=== PATIENT | male | born 1955 | race African-American/Black ===

== ENCOUNTER 2017-03-29 15:23 | Inpatient (IN) | payer OTHER ==
[2017-03-29 16:04] VITALS: BMI 21.0
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
[2017-03-29] MEDS ORDERED: MAG HYDROX/AL HYDROX/SIMETH 30 ML UNIT-DOSE CUP PO PRN (17:34)
[2017-03-29] MEDS ORDERED: LOPERAMIDE HCL 2 MG CAPSULE PO PRN (17:34)
[2017-03-29] MEDS ORDERED: MAGNESIUM HYDROX 2400MG/30ML ORAL SUSPENSION 30 ML CUP PO PRN (17:34)
[2017-03-29] MEDS ORDERED: chlordiazePOXIDE HCL 25 MG CAPSULE PO PRN (17:34)
[2017-03-29] MEDS ORDERED: MAGNESIUM CITRATE 300 ML BOTTLE PO PRN (17:34)
[2017-03-29] MEDS ORDERED: P-EPHED 60MG/TRIPROLIDI 2.5MG TABLET PO PRN (17:34)
[2017-03-29] MEDS ORDERED: guaiFENesin/D-METHORPHAN HB 10 ML UNIT-DOSE CUPS PO PRN (17:34)
[2017-03-29] MEDS ORDERED: MENTHOL/PHENOL 1 EACH UD MM PRN (17:34)
[2017-03-29] MEDS ORDERED: hydrOXYzine PAMOATE 50 MG CAPSULE (FP) PO PRN (17:34)
[2017-03-29] MEDS ORDERED: diphenhydrAMINE HCL 50 MG CAPSULE PO PRN (17:34)
[2017-03-29] MEDS ORDERED: cloNIDine HCL 0.1 MG TABLET PO ONE (18:00)
[2017-03-29] MEDS ORDERED: chlordiazePOXIDE HCL 25 MG CAPSULE PO ONE (18:00)
[2017-03-29] MEDS: CEPHALEXIN MONOHYDRATE 500 MG CAPSULE (UD) PO SCH ×2 (18:40→23:17)
[2017-03-29] MEDS: NICOTINE 21 MG/24 HOURS TOPICAL PATCH TD SCH (18:44)
[2017-03-29] MEDS: chlordiazePOXIDE HCL 25 MG CAPSULE PO SCH (22:41)
[2017-03-29] MEDS: FLUTICASONE PROP 0.05% 16 GM NASAL SPRAY NS SCH (22:41)
[2017-03-29] MEDS: THIAMINE HCL 100 MG TABLET (FP) PO SCH (22:41)
[2017-03-29 23:31] LABS: URINE APPEARANCE CLEAR; URINE BILIRUBIN NEGATIVE (NEGATIVE); URINE BLOOD NEGATIVE (NEGATIVE); URINE COLOR LTYELLOW; URINE GLUCOSE (UA) NEGATIVE (NEGATIVE); URINE KETONE NEGATIVE (NEGATIVE); URINE LEUK ESTERASE NEGATIVE (NEGATIVE); URINE NITRITE NEGATIVE (NEGATIVE); URINE PROTEIN NEGATIVE (NEGATIVE); URINE UROBILINOGEN 2.0 E.U/dl E.U./dl (0.2-1.0)
[2017-03-30] MEDS: ACETAMINOPHEN 325 MG TABLET (FP) PO PRN ×2 (01:20→11:45)
[2017-03-30] MEDS: chlordiazePOXIDE HCL 25 MG CAPSULE PO SCH ×4 (06:00→22:29)
[2017-03-30] MEDS: CEPHALEXIN MONOHYDRATE 500 MG CAPSULE (UD) PO SCH ×4 (06:18→23:36)
[2017-03-30 10:14] LABS: MCHC 32.6 g/dl (32.0-35.9); MEAN CELL VOLUME 95.1 fl (80-96); MEAN PLT VOLUME 9.5 fl (7.5-11.1); PLATELET COUNT 153 K/MM3 (134-434); RDW 12.8 % (11.9-15.9); WHITE BLOOD COUNT 13.8 K/mm3 (4.0-10.0)
--- NOTE | 2017-03-30 10:25 | EKG ---
Test Reason : Blood Pressure : / mmHG Vent. Rate : 112 BPM Atrial Rate : 112 BPM P-R Int : 118 ms QRS Dur : 090 ms QT Int : 330 ms P-R-T Axes : 078 085 074 degrees QTc Int : 450 ms SINUS TACHYCARDIA POSSIBLE LEFT ATRIAL ENLARGEMENT SEPTAL INFARCT , AGE UNDETERMINED ABNORMAL ECG NO PREVIOUS ECGS AVAILABLE Confirmed by CHAIM MICHAELS MD ([id number]) on 03/30/2017 10:25:16 AM Referred By: Confirmed By:CHAIM MICHAELS MD
[2017-03-30] MEDS: FLUTICASONE PROP 0.05% 16 GM NASAL SPRAY NS SCH ×2 (10:47→22:29)
[2017-03-30 10:48] LABS: ALBUMIN 2.8 g/dl (3.4-5.0); ALK PHOS 243 U/L (45-117); ANION GAP 11 (8-16); BILIRUBIN,TOTAL 1.6 mg/dL (0.2-1.0); CALCIUM 8.2 mg/dL (8.5-10.1); CO2 26 mmol/L (21-32); COCKROFT - GAULT 103.31; CREATININE 0.8 mg/dL (0.7-1.3); GLUCOSE,RANDOM 106 mg/dL (74-106); SGOT/AST 89 U/L (15-37); SGPT/ALT 58 U/L (12-78); TOT PROT 6.7 g/dl (6.4-8.2)
[2017-03-30] MEDS: IBUPROFEN 400 MG TABLET (FP) PO PRN ×2 (10:48→22:32)
[2017-03-30] MEDS: NICOTINE 21 MG/24 HOURS TOPICAL PATCH TD SCH (10:48)
[2017-03-30] MEDS: PRENATAL VITAMINS W/ FOLIC ACID TABLET (FP) PO SCH (10:48)
[2017-03-30] MEDS: amLODIPine BESYLATE 5 MG TABLET (FP) PO SCH (10:48)
[2017-03-30 11:31] LABS: HIV 1 & 2 AB NEGATIVE; HIV 1 AGp24 NEGATIVE
--- NOTE | 2017-03-30 13:06 | CONSULT ---
[facility] Psychiatric Consult - Data Date of interview: 03/30/17 Admission source: [facility] Identifying data: Patient is approached at bedside for psychiatric interview.He refuses.Nursing staff is made aware.
--- NOTE | 2017-03-30 15:56 | PN ---
[facility] CIWA - CIWA Score Nausea/Vomitin-Mild Nausea/No Vomiting Muscle Tremors: 3 Anxiety: 3 Agitation: 2 Paroxysmal Sweats: 3 Orientation: 0-Oriented Tacttile Disturbances: 3-Moderate Itch/Numb/Burn Auditory Disturbances: 2-Mild Harshness/Frighten Visual Disturbances: 0-None Headache: 0-None Present CIWA-Ar Total Score: 17 BHS Progress Note (SOAP) Subjective: Body Aches, Back Ache, Tremors, Sweating. Objective: PT. A & O X 3. 03/30/17 15:54 Vital Signs Temperature 98.3 F 03/30/17 10:27 Pulse Rate 118 H 03/30/17 10:27 Respiratory Rate 20 03/30/17 10:27 Blood Pressure 137/82 03/30/17 10:27 O2 Sat by Pulse Oximetry (%) Laboratory Last Values WBC 13.8 K/mm3 (4.0-10.0) H D 03/30/17 07:00 RBC 3.79 M/mm3 (4.00-5.60) L 03/30/17 07:00 Hgb 11.8 GM/dL (11.7-16.9) 03/30/17 07:00 Hct 36.1 % (35.4-49) 03/30/17 07:00 MCV 95.1 fl (80-96) 03/30/17 07:00 MCHC 32.6 g/dl (32.0-35.9) 03/30/17 07:00 RDW 12.8 % (11.9-15.9) 03/30/17 07:00 Plt Count 153 K/MM3 (134-434) 03/30/17 07:00 MPV 9.5 fl (7.5-11.1) 03/30/17 07:00 Sodium 139 mmol/L (136-145) 03/30/17 07:00 Potassium 3.6 mmol/L (3.5-5.1) 03/30/17 07:00 Chloride 102 mmol/L (98-107) 03/30/17 07:00 Carbon Dioxide 26 mmol/L (21-32) 03/30/17 07:00 Anion Gap 11 (8-16) 03/30/17 07:00 BUN 9 mg/dL (7-18) D 03/30/17 07:00 Creatinine 0.8 mg/dL (0.7-1.3) 03/30/17 07:00 Creat Clearance w eGFR > 60 (>60) 03/30/17 07:00 POC Glucometer 102 UNITS (()) 03/30/17 06:32 Random Glucose 106 mg/dL (74-106) 03/30/17 07:00 Calcium 8.2 mg/dL (8.5-10.1) L 03/30/17 07:00 Total Bilirubin 1.6 mg/dL (0.2-1.0) H 03/30/17 07:00 AST 89 U/L (15-37) H D 03/30/17 07:00 ALT 58 U/L (12-78) D 03/30/17 07:00 Alkaline Phosphatase 243 U/L (45-117) H D 03/30/17 07:00 Total Protein 6.7 g/dl (6.4-8.2) 03/30/17 07:00 Albumin 2.8 g/dl (3.4-5.0) L 03/30/17 07:00 Urine Color Ltyellow 03/29/17 18:45 Urine Appearance Clear 03/29/17 18:45 Urine pH 6.0 (5.0-8.0) 03/29/17 18:45 Ur Specific [place] <= 1.005 (1.005-1.025) 03/29/17 18:45 Urine Protein Negative (NEGATIVE) 03/29/17 18:45 Urine Glucose (UA) Negative (NEGATIVE) 03/29/17 18:45 Urine Ketones Negative (NEGATIVE) 03/29/17 18:45 Urine Blood Negative (NEGATIVE) 03/29/17 18:45 Urine Nitrite Negative (NEGATIVE) 03/29/17 18:45 Urine Bilirubin Negative (NEGATIVE) 03/29/17 18:45 Urine Urobilinogen 2.0 e.u/dl E.U./dl (0.2-1.0) 03/29/17 18:45 Ur Leukocyte Esterase Negative (NEGATIVE) 03/29/17 18:45 RPR Titer Nonreactive (NONREACTIVE) 03/30/17 07:00 HIV 1&2 Antibody Screen Negative 03/30/17 07:00 HIV P24 Antigen Negative 03/30/17 07:00 LABS NOTED. Assessment: 03/30/17 15:55 WITHDRAWAL SYMPTOMS. Plan: CONTINUE DETOX. ADVISED PATIENT TO FOLLOW-UP WITH MATERNAL FETAL PHYSICIAN AFTER DISCHARGE FROM DETOX FOR GENERAL MEDICAL ASSESSMENT AND FOR ABNORMAL DETOX ADMISSION LAB VALUES.
[2017-03-30] MEDS: THIAMINE HCL 100 MG TABLET (FP) PO SCH (22:29)
[2017-03-31] MEDS: CEPHALEXIN MONOHYDRATE 500 MG CAPSULE (UD) PO SCH ×4 (05:49→23:01)
[2017-03-31] MEDS: chlordiazePOXIDE HCL 25 MG CAPSULE PO SCH ×3 (05:49→17:39)
[2017-03-31] MEDS: IBUPROFEN 400 MG TABLET (FP) PO PRN ×2 (05:53→17:42)
[2017-03-31] MEDS: PRENATAL VITAMINS W/ FOLIC ACID TABLET (FP) PO SCH (10:50)
[2017-03-31] MEDS: amLODIPine BESYLATE 5 MG TABLET (FP) PO SCH (10:50)
[2017-03-31] MEDS: FLUTICASONE PROP 0.05% 16 GM NASAL SPRAY NS SCH ×2 (10:51→23:00)
[2017-03-31] MEDS: NICOTINE 21 MG/24 HOURS TOPICAL PATCH TD SCH (10:51)
--- NOTE | 2017-03-31 13:36 | PN ---
S CIWA - CIWA Score Nausea/Vomitin Muscle Tremors: 3 Anxiety: 3 Agitation: 2 Paroxysmal Sweats: 3 Orientation: 0-Oriented Tacttile Disturbances: 0-None Auditory Disturbances: 2-Mild Harshness/Frighten Visual Disturbances: 3-Moderate Sensitivity Headache: 0-None Present CIWA-Ar Total Score: 19 S Progress Note (SOAP) Subjective: Stomach Cramping, Body Aches, Sweating, Tremors. Objective: PT. A & O X 3, OBSERVED AMBULATING ON UNIT. 03/31/17 13:34 Vital Signs Temperature 97.3 F L 03/31/17 09:34 Pulse Rate 112 H 03/31/17 09:34 Respiratory Rate 20 03/31/17 09:34 Blood Pressure 106/79 03/31/17 09:34 O2 Sat by Pulse Oximetry (%) Laboratory Last Values WBC 13.8 K/mm3 (4.0-10.0) H D 03/30/17 07:00 RBC 3.79 M/mm3 (4.00-5.60) L 03/30/17 07:00 Hgb 11.8 GM/dL (11.7-16.9) 03/30/17 07:00 Hct 36.1 % (35.4-49) 03/30/17 07:00 MCV 95.1 fl (80-96) 03/30/17 07:00 MCHC 32.6 g/dl (32.0-35.9) 03/30/17 07:00 RDW 12.8 % (11.9-15.9) 03/30/17 07:00 Plt Count 153 K/MM3 (134-434) 03/30/17 07:00 MPV 9.5 fl (7.5-11.1) 03/30/17 07:00 Sodium 139 mmol/L (136-145) 03/30/17 07:00 Potassium 3.6 mmol/L (3.5-5.1) 03/30/17 07:00 Chloride 102 mmol/L (98-107) 03/30/17 07:00 Carbon Dioxide 26 mmol/L (21-32) 03/30/17 07:00 Anion Gap 11 (8-16) 03/30/17 07:00 BUN 9 mg/dL (7-18) D 03/30/17 07:00 Creatinine 0.8 mg/dL (0.7-1.3) 03/30/17 07:00 Creat Clearance w eGFR > 60 (>60) 03/30/17 07:00 POC Glucometer 111 UNITS (()) 03/31/17 05:48 Random Glucose 106 mg/dL (74-106) 03/30/17 07:00 Calcium 8.2 mg/dL (8.5-10.1) L 03/30/17 07:00 Total Bilirubin 1.6 mg/dL (0.2-1.0) H 03/30/17 07:00 AST 89 U/L (15-37) H D 03/30/17 07:00 ALT 58 U/L (12-78) D 03/30/17 07:00 Alkaline Phosphatase 243 U/L (45-117) H D 03/30/17 07:00 Total Protein 6.7 g/dl (6.4-8.2) 03/30/17 07:00 Albumin 2.8 g/dl (3.4-5.0) L 03/30/17 07:00 Urine Color Ltyellow 03/29/17 18:45 Urine Appearance Clear 03/29/17 18:45 Urine pH 6.0 (5.0-8.0) 03/29/17 18:45 Ur Specific [place] <= 1.005 (1.005-1.025) 03/29/17 18:45 Urine Protein Negative (NEGATIVE) 03/29/17 18:45 Urine Glucose (UA) Negative (NEGATIVE) 03/29/17 18:45 Urine Ketones Negative (NEGATIVE) 03/29/17 18:45 Urine Blood Negative (NEGATIVE) 03/29/17 18:45 Urine Nitrite Negative (NEGATIVE) 03/29/17 18:45 Urine Bilirubin Negative (NEGATIVE) 03/29/17 18:45 Urine Urobilinogen 2.0 e.u/dl E.U./dl (0.2-1.0) 03/29/17 18:45 Ur Leukocyte Esterase Negative (NEGATIVE) 03/29/17 18:45 RPR Titer Nonreactive (NONREACTIVE) 03/30/17 07:00 HIV 1&2 Antibody Screen Negative 03/30/17 07:00 HIV P24 Antigen Negative 03/30/17 07:00 LABS NOTED. Assessment: 03/31/17 13:35 WITHDRAWAL SYMPTOMS. Plan: CONTINUE DETOX. ADVISED PATIENT TO FOLLOW-UP WITH [employer] SUPERVISOR AFTER DISCHARGE FROM DETOX FOR GENERAL MEDICAL ASSESSMENT AND FOR ABNORMAL DETOX ADMISSION LAB VALUES.
[2017-03-31] MEDS: THIAMINE HCL 100 MG TABLET (FP) PO SCH (22:30)
[2017-03-31] MEDS: chlordiazePOXIDE 5 MG CAPSULE PO SCH (23:01)
[2017-04-01] MEDS: chlordiazePOXIDE 5 MG CAPSULE PO SCH ×3 (05:15→17:32)
[2017-04-01] MEDS: CEPHALEXIN MONOHYDRATE 500 MG CAPSULE (UD) PO SCH ×4 (05:15→23:19)
[2017-04-01] MEDS: IBUPROFEN 400 MG TABLET (FP) PO PRN ×2 (05:20→10:25)
[2017-04-01] MEDS: FLUTICASONE PROP 0.05% 16 GM NASAL SPRAY NS SCH ×2 (10:21→23:18)
[2017-04-01] MEDS: amLODIPine BESYLATE 5 MG TABLET (FP) PO SCH (10:22)
[2017-04-01] MEDS: NICOTINE 21 MG/24 HOURS TOPICAL PATCH TD SCH (10:22)
[2017-04-01] MEDS: PRENATAL VITAMINS W/ FOLIC ACID TABLET (FP) PO SCH (10:22)
--- NOTE | 2017-04-01 17:07 | PN ---
BHS Progress Note (SOAP) Subjective: Body Aches, Tremors, Interrupted Sleep, Sweating. Objective: PT. A & O X 3, OBSERVED AMBULATING ON UNIT. 04/01/17 17:04 Vital Signs Temperature 98.1 F 04/01/17 16:59 Pulse Rate 97 H 04/01/17 16:59 Respiratory Rate 19 04/01/17 16:59 Blood Pressure 114/70 04/01/17 16:59 O2 Sat by Pulse Oximetry (%) Laboratory Last Values WBC 13.8 K/mm3 (4.0-10.0) H D 03/30/17 07:00 RBC 3.79 M/mm3 (4.00-5.60) L 03/30/17 07:00 Hgb 11.8 GM/dL (11.7-16.9) 03/30/17 07:00 Hct 36.1 % (35.4-49) 03/30/17 07:00 MCV 95.1 fl (80-96) 03/30/17 07:00 MCHC 32.6 g/dl (32.0-35.9) 03/30/17 07:00 RDW 12.8 % (11.9-15.9) 03/30/17 07:00 Plt Count 153 K/MM3 (134-434) 03/30/17 07:00 MPV 9.5 fl (7.5-11.1) 03/30/17 07:00 Sodium 139 mmol/L (136-145) 03/30/17 07:00 Potassium 3.6 mmol/L (3.5-5.1) 03/30/17 07:00 Chloride 102 mmol/L (98-107) 03/30/17 07:00 Carbon Dioxide 26 mmol/L (21-32) 03/30/17 07:00 Anion Gap 11 (8-16) 03/30/17 07:00 BUN 9 mg/dL (7-18) D 03/30/17 07:00 Creatinine 0.8 mg/dL (0.7-1.3) 03/30/17 07:00 Creat Clearance w eGFR > 60 (>60) 03/30/17 07:00 POC Glucometer 113 UNITS (()) 04/01/17 16:25 Random Glucose 106 mg/dL (74-106) 03/30/17 07:00 Calcium 8.2 mg/dL (8.5-10.1) L 03/30/17 07:00 Total Bilirubin 1.6 mg/dL (0.2-1.0) H 03/30/17 07:00 AST 89 U/L (15-37) H D 03/30/17 07:00 ALT 58 U/L (12-78) D 03/30/17 07:00 Alkaline Phosphatase 243 U/L (45-117) H D 03/30/17 07:00 Total Protein 6.7 g/dl (6.4-8.2) 03/30/17 07:00 Albumin 2.8 g/dl (3.4-5.0) L 03/30/17 07:00 Urine Color Ltyellow 03/29/17 18:45 Urine Appearance Clear 03/29/17 18:45 Urine pH 6.0 (5.0-8.0) 03/29/17 18:45 Ur Specific [place] <= 1.005 (1.005-1.025) 03/29/17 18:45 Urine Protein Negative (NEGATIVE) 03/29/17 18:45 Urine Glucose (UA) Negative (NEGATIVE) 03/29/17 18:45 Urine Ketones Negative (NEGATIVE) 03/29/17 18:45 Urine Blood Negative (NEGATIVE) 03/29/17 18:45 Urine Nitrite Negative (NEGATIVE) 03/29/17 18:45 Urine Bilirubin Negative (NEGATIVE) 03/29/17 18:45 Urine Urobilinogen 2.0 e.u/dl E.U./dl (0.2-1.0) 03/29/17 18:45 Ur Leukocyte Esterase Negative (NEGATIVE) 03/29/17 18:45 RPR Titer Nonreactive (NONREACTIVE) 03/30/17 07:00 HIV 1&2 Antibody Screen Negative 03/30/17 07:00 HIV P24 Antigen Negative 03/30/17 07:00 LABS NOTED. Assessment: 04/01/17 17:06 WITHDRAWAL SYMPTOMS. Plan: CONTINUE DETOX. ADVISED PATIENT TO FOLLOW-UP WITH [facility]ER AFTER DISCHARGE FROM DETOX FOR GENERAL MEDICAL ASSESSMENT AND FOR ABNORMAL ADMISSION [facility].
[2017-04-01] MEDS: chlordiazePOXIDE HCL 10 MG CAPSULE PO SCH (23:19)
[2017-04-01] MEDS: THIAMINE HCL 100 MG TABLET (FP) PO SCH (23:19)
[2017-04-02] MEDS: chlordiazePOXIDE HCL 10 MG CAPSULE PO SCH (05:52)
[2017-04-02] MEDS: CEPHALEXIN MONOHYDRATE 500 MG CAPSULE (UD) PO SCH (05:52)
[2017-04-02 09:27] VITALS: BP 127/86; PULSE 117; TEMP 98.8
--- NOTE | 2017-04-02 17:23 | DS ---
[facility] Detox Discharge Summary Admission Date: 03/29/17 Discharge Date: 04/02/17 - History Present History: Alcohol Dependence Additional Comments: ADVISED PATIENT TO FOLLOW-UP WITH [employer]MP[employer] SUPERVISOR AFTER DISCHARGE FROM DETOX FOR GENERAL MEDICAL ASSESSMENT. Pertinent Past History: HTN, Hep C, Acid Reflux, Depression, Bipolar Disorder. - Physical Exam Results Vital Signs: Vital Signs Temperature 98.8 F 04/02/17 09:26 Pulse Rate 117 H 04/02/17 09:26 Respiratory Rate 18 04/02/17 09:26 Blood Pressure 127/86 04/02/17 09:26 O2 Sat by Pulse Oximetry (%) Pertinent Admission Physical Exam Findings: WITHDRAWAL SYMPTOMS. Laboratory Tests 03/29/17 03/29/17 03/30/17 17:27 18:45 06:32 WBC RBC Hgb Hct MCV MCHC RDW Plt Count MPV Sodium Potassium Chloride Carbon Dioxide Anion Gap BUN Creatinine Creat Clearance w eGFR POC Glucometer 119 102 Random Glucose Calcium Total Bilirubin AST ALT Alkaline Phosphatase Total Protein Albumin Urine Color Ltyellow Urine Appearance Clear Urine pH 6.0 Ur Specific [place] <= 1.005 Urine Protein Negative Urine Glucose (UA) Negative Urine Ketones Negative Urine Blood Negative Urine Nitrite Negative Urine Bilirubin Negative Urine Urobilinogen 2.0 e.u/dl Ur Leukocyte Esterase Negative RPR Titer HIV 1&2 Antibody Screen HIV P24 Antigen 03/30/17 03/30/17 03/30/17 07:00 07:00 07:00 WBC 13.8 H D RBC 3.79 L Hgb 11.8 Hct 36.1 MCV 95.1 MCHC 32.6 RDW 12.8 Plt Count 153 MPV 9.5 Sodium 139 Potassium 3.6 Chloride 102 Carbon Dioxide 26 Anion Gap 11 BUN 9 D Creatinine 0.8 Creat Clearance w eGFR > 60 POC Glucometer Random Glucose 106 Calcium 8.2 L Total Bilirubin 1.6 H AST 89 H D ALT 58 D Alkaline Phosphatase 243 H D Total Protein 6.7 Albumin 2.8 L Urine Color Urine Appearance Urine pH Ur Specific [place] Urine Protein Urine Glucose (UA) Urine Ketones Urine Blood Urine Nitrite Urine Bilirubin Urine Urobilinogen Ur Leukocyte Esterase RPR Titer HIV 1&2 Antibody Screen Negative HIV P24 Antigen Negative 03/30/17 03/30/17 03/31/17 07:00 16:20 05:48 WBC RBC Hgb Hct MCV MCHC RDW Plt Count MPV Sodium Potassium Chloride Carbon Dioxide Anion Gap BUN Creatinine Creat Clearance w eGFR POC Glucometer 124 111 Random Glucose Calcium Total Bilirubin AST ALT Alkaline Phosphatase Total Protein Albumin Urine Color Urine Appearance Urine pH Ur Specific [place] Urine Protein Urine Glucose (UA) Urine Ketones Urine Blood Urine Nitrite Urine Bilirubin Urine Urobilinogen Ur Leukocyte Esterase RPR Titer Nonreactive HIV 1&2 Antibody Screen HIV P24 Antigen 03/31/17 04/01/17 04/01/17 16:24 05:17 16:25 WBC RBC Hgb Hct MCV MCHC RDW Plt Count MPV Sodium Potassium Chloride Carbon Dioxide Anion Gap BUN Creatinine Creat Clearance w eGFR POC Glucometer 107 117 113 Random Glucose Calcium Total Bilirubin AST ALT Alkaline Phosphatase Total Protein Albumin Urine Color Urine Appearance Urine pH Ur Specific [place] Urine Protein Urine Glucose (UA) Urine Ketones Urine Blood Urine Nitrite Urine Bilirubin Urine Urobilinogen Ur Leukocyte Esterase RPR Titer HIV 1&2 Antibody Screen HIV P24 Antigen 04/02/17 05:54 WBC RBC Hgb Hct MCV MCHC RDW Plt Count MPV Sodium Potassium Chloride Carbon Dioxide Anion Gap BUN Creatinine Creat Clearance w eGFR POC Glucometer 101 Random Glucose Calcium Total Bilirubin AST ALT Alkaline Phosphatase Total Protein Albumin Urine Color Urine Appearance Urine pH Ur Specific [place] Urine Protein Urine Glucose (UA) Urine Ketones Urine Blood Urine Nitrite Urine Bilirubin Urine Urobilinogen Ur Leukocyte Esterase RPR Titer HIV 1&2 Antibody Screen HIV P24 Antigen LABS NOTED. - Treatment Hospital Course: Detox Protocol Followed, Detoxed Safely, Responded well, Discharged Condition Good Patient has Accepted a Rehab Referral to: NO - PT. WILL RETURN TO [facility]. - Medication Discharge Medications: Ambulatory Orders Amlodipine Besylate [Norvasc -] 10 mg PO DAILY 03/04/16 - Diagnosis (1) Alcohol dependence with uncomplicated withdrawal Status: Acute (2) Bipolar II disorder Status: Chronic (3) Cellulitis of right leg Status: Acute (4) Nicotine dependence Status: Chronic Qualifiers: Nicotine product type: cigarettes Substance use status: uncomplicated Qualified Code(s): F17.210 - Nicotine dependence, cigarettes, uncomplicated (5) Sinusitis Status: Acute Qualifiers: Sinusitis location: unspecified location Chronicity: unspecified Qualified Code(s): J32.9 - Chronic sinusitis, unspecified (6) Weight loss Status: Acute (7) Diabetes mellitus Status: Chronic Qualifiers: Diabetes mellitus type: type 2 Diabetes mellitus complication status: with unspecified complications Diabetes mellitus assisted insulin use: without director long term care use Qualified Code(s): E11.8 - Type 2 diabetes mellitus with unspecified complications (8) HTN (hypertension) Status: Chronic Qualifiers: Hypertension type: essential hypertension (9) Hepatitis-C Status: Chronic Qualifiers: Viral hepatitis chronicity: chronic Hepatic coma status: without hepatic coma Qualified Code(s): B18.2 - Chronic viral hepatitis C - AMA Did Patient Leave Against Medical Advice: No
== END 2017-04-02 10:40 | disposition home or self-care (01) | DRG 775 ==
LOC: YASAS 15:23 → Y3N 17:30
PROVIDERS: ADMIT Internal Medicine; ATTEND Internal Medicine
PROC: HZ2ZZZZ Detoxification Services for Substance Abuse Treatment (ICD-10-PCS; principal; 2017-04-02)
DX: F10.230 Alcohol dependence with withdrawal, uncomplicated (principal); F16.20 Hallucinogen dependence, uncomplicated; F17.210 Nicotine dependence, cigarettes, uncomplicated; F31.81 Bipolar II disorder; F41.9 Anxiety disorder, unspecified; I10 Essential (primary) hypertension; L03.115 Cellulitis of right lower limb; J01.80 Other acute sinusitis; B18.2 Chronic viral hepatitis C; R63.4 Abnormal weight loss; Z68.21 Body mass index [BMI] 21.0-21.9, adult
CPT/HCPCS: 36415; 80053; 81003; 85027; 86593; 87389; 93005; 93010

== ENCOUNTER 2017-12-22 12:28 | Inpatient (IN) | payer OTHER ==
[2017-12-22 14:31] VITALS: BMI 22.3
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
[2017-12-22] MEDS ORDERED: P-EPHED 60MG/TRIPROLIDI 2.5MG TABLET PO PRN (15:43)
[2017-12-22] MEDS ORDERED: chlordiazePOXIDE HCL 25 MG CAPSULE PO PRN (15:43)
[2017-12-22] MEDS ORDERED: MAGNESIUM CITRATE 300 ML BOTTLE PO PRN (15:43)
[2017-12-22] MEDS ORDERED: LOPERAMIDE HCL 2 MG CAPSULE PO PRN (15:43)
[2017-12-22] MEDS ORDERED: NICOTINE POLACRILEX 2 MG GUM BC PRN (15:43)
[2017-12-22] MEDS ORDERED: MAGNESIUM HYDROX 2400MG/30ML ORAL SUSPENSION 30 ML CUP PO PRN (15:43)
[2017-12-22] MEDS ORDERED: MAG HYDROX/AL HYDROX/SIMETH 30 ML UNIT-DOSE CUP PO PRN (15:43)
[2017-12-22] MEDS ORDERED: hydrOXYzine PAMOATE 50 MG CAPSULE (FP) PO PRN (15:43)
[2017-12-22] MEDS ORDERED: ACETAMINOPHEN 325 MG TABLET (FP) PO PRN (15:43)
[2017-12-22] MEDS ORDERED: MENTHOL/PHENOL 1 EACH UD MM PRN (15:43)
[2017-12-22] MEDS ORDERED: IBUPROFEN 400 MG TABLET (FP) PO PRN (15:43)
[2017-12-22] MEDS ORDERED: guaiFENesin/D-METHORPHAN HB 10 ML UNIT-DOSE CUPS PO PRN (15:43)
[2017-12-22] MEDS ORDERED: chlordiazePOXIDE HCL 25 MG CAPSULE PO ONE (17:15)
[2017-12-22] MEDS: amLODIPine BESYLATE 5 MG TABLET (FP) PO SCH (18:45)
[2017-12-22] MEDS: CYCLOBENZAPRINE HCL 10 MG TABLET (FP) PO PRN (22:31)
[2017-12-22] MEDS: NICOTINE 14 MG/24 HOURS TOPICAL PATCH TD SCH (22:31)
[2017-12-22] MEDS: THIAMINE HCL 100 MG TABLET (FP) PO SCH (22:31)
[2017-12-22] MEDS: BACITRACIN 0.9 GM PACKET TP SCH (22:31)
[2017-12-22] MEDS: chlordiazePOXIDE HCL 25 MG CAPSULE PO SCH (22:31)
[2017-12-22] MEDS: MINERAL OIL/PETROLAT/WATER TOPICAL CREAM 113 GM JAR TP SCH (22:32)
[2017-12-23] MEDS: chlordiazePOXIDE HCL 25 MG CAPSULE PO SCH ×4 (06:44→22:40)
[2017-12-23] MEDS: BACITRACIN 0.9 GM PACKET TP SCH ×2 (10:10→22:38)
[2017-12-23] MEDS: PRENATAL VITAMINS W/ FOLIC ACID TABLET (FP) PO SCH (10:10)
[2017-12-23] MEDS: amLODIPine BESYLATE 5 MG TABLET (FP) PO SCH (10:11)
[2017-12-23] MEDS: NICOTINE 14 MG/24 HOURS TOPICAL PATCH TD SCH (10:11)
[2017-12-23] MEDS: MINERAL OIL/PETROLAT/WATER TOPICAL CREAM 113 GM JAR TP SCH ×2 (10:11→22:40)
[2017-12-23 10:23] LABS: HEMATOCRIT 33.7 % (35.4-49); HEMOGLOBIN 10.7 GM/dL (11.7-16.9); MCH 30.1 pg (25.7-33.7); MCHC 31.9 g/dl (32.0-35.9); MEAN CELL VOLUME 94.5 fl (80-96); MEAN PLT VOLUME 10.3 fl (7.5-11.1); PLATELET COUNT 172 K/MM3 (134-434); RBC 3.56 M/mm3 (4.00-5.60); RDW 14.2 % (11.9-15.9); WHITE BLOOD COUNT 5.6 K/mm3 (4.0-10.0)
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
[2017-12-23] MEDS ORDERED: ARIPiprazole 2 MG TABLET PO SCH (10:30)
--- NOTE | 2017-12-23 10:43 | PN ---
[facility] CIWA - CIWA Score Nausea/Vomitin-No Nausea/No Vomiting Muscle Tremors: 4-Moderate,w/Arms Extend Anxiety: 4-Mod. Anxious/Guarded Agitation: 4-Moderately Restless Paroxysmal Sweats: 1-Minimal Palms Moist Orientation: 0-Oriented Tacttile Disturbances: 3-Moderate Itch/Numb/Burn Auditory Disturbances: 0-None Visual Disturbances: 0-None Headache: 0-None Present CIWA-Ar Total Score: 16 BHS Progress Note (SOAP) Subjective: ANXIETY,SWEATS,SLIGHT TREMORS, UNCONTROLLED DIARRHEA WITH ACCIDENTAL INCONTINENCE X 3. Objective: 12/23/17 10:43 Vital Signs Temperature 97.8 F 12/23/17 10:06 Pulse Rate 92 H 12/23/17 10:06 Respiratory Rate 20 12/23/17 10:06 Blood Pressure 149/93 12/23/17 10:06 O2 Sat by Pulse Oximetry (%) Laboratory Last Values WBC 5.6 K/mm3 (4.0-10.0) D 12/23/17 05:50 RBC 3.56 M/mm3 (4.00-5.60) L 12/23/17 05:50 Hgb 10.7 GM/dL (11.7-16.9) L 12/23/17 05:50 Hct 33.7 % (35.4-49) L 12/23/17 05:50 MCV 94.5 fl (80-96) 12/23/17 05:50 MCH 30.1 pg (25.7-33.7) 12/23/17 05:50 MCHC 31.9 g/dl (32.0-35.9) L 12/23/17 05:50 RDW 14.2 % (11.9-15.9) D 12/23/17 05:50 Plt Count 172 K/MM3 (134-434) 12/23/17 05:50 MPV 10.3 fl (7.5-11.1) 12/23/17 05:50 POC Glucometer 140 UNITS (80-120) 12/23/17 06:47 OTHER LABS PENDING Assessment: 12/23/17 10:43 WITHDRAWAL SX Plan: CONTINUE DETOX
[2017-12-23 10:47] LABS: ALBUMIN 3.1 g/dl (3.4-5.0); ANION GAP 7 (8-16); BLOOD UREA NITROGEN 11 mg/dL (7-18); CALCIUM 8.2 mg/dL (8.5-10.1); CHLORIDE 106 mmol/L (98-107); CO2 27 mmol/L (21-32); GLUCOSE,RANDOM 141 mg/dL (74-106); POTASSIUM 3.8 mmol/L (3.5-5.1); SODIUM 140 mmol/L (136-145)
[2017-12-23 10:50] LABS: ALK PHOS 252 U/L (45-117); BILIRUBIN,TOTAL 1.3 mg/dL (0.2-1.0); CREATININE 0.8 mg/dL (0.7-1.3); SGOT/AST 73 U/L (15-37); SGPT/ALT 74 U/L (12-78); TOT PROT 6.7 g/dl (6.4-8.2)
--- NOTE | 2017-12-23 14:22 | EKG ---
Test Reason : Blood Pressure : / mmHG Vent. Rate : 100 BPM Atrial Rate : 100 BPM P-R Int : 112 ms QRS Dur : 094 ms QT Int : 352 ms P-R-T Axes : 072 078 054 degrees QTc Int : 454 ms NORMAL SINUS RHYTHM NON-SPECIFIC INTRA-VENTRICULAR CONDUCTION DELAY WHEN COMPARED WITH ECG OF 29-MAR-2017 18:07, NO SIGNIFICANT CHANGE WAS FOUND Confirmed by ZANDER HENRIQUEZ MD ([id number]) on 12/23/2017 2:21:31 PM Referred By: Confirmed By:ZANDER HENRIQUEZ MD
[2017-12-23] MEDS: MIRTAZAPINE 15 MG TABLET (FP) PO SCH (22:37)
[2017-12-23] MEDS: CYCLOBENZAPRINE HCL 10 MG TABLET (FP) PO PRN (22:38)
[2017-12-23] MEDS: ARIPiprazole 2 MG TABLET PO SCH (22:38)
[2017-12-23] MEDS: THIAMINE HCL 100 MG TABLET (FP) PO SCH (22:40)
[2017-12-23 23:04] LABS: URINE APPEARANCE CLEAR; URINE BILIRUBIN NEGATIVE (NEGATIVE); URINE BLOOD NEGATIVE (NEGATIVE); URINE COLOR LTYELLOW; URINE GLUCOSE (UA) NEGATIVE (NEGATIVE); URINE KETONE NEGATIVE (NEGATIVE); URINE LEUK ESTERASE NEGATIVE (NEGATIVE); URINE NITRITE NEGATIVE (NEGATIVE); URINE PROTEIN NEGATIVE (NEGATIVE)
[2017-12-24] MEDS: chlordiazePOXIDE HCL 25 MG CAPSULE PO SCH ×3 (05:21→17:05)
[2017-12-24] MEDS: PRENATAL VITAMINS W/ FOLIC ACID TABLET (FP) PO SCH (11:01)
[2017-12-24] MEDS: NICOTINE 14 MG/24 HOURS TOPICAL PATCH TD SCH (11:01)
[2017-12-24] MEDS: amLODIPine BESYLATE 5 MG TABLET (FP) PO SCH (11:01)
[2017-12-24] MEDS: BACITRACIN 0.9 GM PACKET TP SCH ×2 (11:01→22:16)
[2017-12-24] MEDS: MINERAL OIL/PETROLAT/WATER TOPICAL CREAM 113 GM JAR TP SCH ×2 (11:02→22:15)
--- NOTE | 2017-12-24 16:10 | PN ---
S CIWA - CIWA Score Nausea/Vomitin-Mild Nausea/No Vomiting Muscle Tremors: 3 Anxiety: 4-Mod. Anxious/Guarded Agitation: 4-Moderately Restless Paroxysmal Sweats: 4-Forehead w/Sweat Beads Orientation: 0-Oriented Tacttile Disturbances: 1-Very Mild Itch/Numbness Auditory Disturbances: 0-None Visual Disturbances: 0-None Headache: 1-Very Mild CIWA-Ar Total Score: 18 BHS Progress Note (SOAP) Subjective: Sweating, nausea, anxious Objective: 12/24/17 16:05 Last Vital Signs Temp Pulse Resp BP Pulse Ox 97.2 F L 121 H 18 159/93 12/24/17 14:07 12/24/17 14:07 12/24/17 14:07 12/24/17 14:07 Laboratory Tests 12/22/17 12/23/17 12/23/17 15:52 05:50 05:50 WBC 5.6 D RBC 3.56 L Hgb 10.7 L Hct 33.7 L MCV 94.5 MCH 30.1 MCHC 31.9 L RDW 14.2 D Plt Count 172 MPV 10.3 Sodium 140 Potassium 3.8 Chloride 106 Carbon Dioxide 27 Anion Gap 7 L BUN 11 D Creatinine 0.8 Creat Clearance w eGFR > 60 POC Glucometer 120 Random Glucose 141 H D Calcium 8.2 L Total Bilirubin 1.3 H AST 73 H ALT 74 D Alkaline Phosphatase 252 H Total Protein 6.7 Albumin 3.1 L Urine Color Urine Appearance Urine pH Ur Specific [place] Urine Protein Urine Glucose (UA) Urine Ketones Urine Blood Urine Nitrite Urine Bilirubin Urine Urobilinogen Ur Leukocyte Esterase RPR Titer 12/23/17 12/23/17 12/23/17 05:50 06:47 16:23 WBC RBC Hgb Hct MCV MCH MCHC RDW Plt Count MPV Sodium Potassium Chloride Carbon Dioxide Anion Gap BUN Creatinine Creat Clearance w eGFR POC Glucometer 140 156 Random Glucose Calcium Total Bilirubin AST ALT Alkaline Phosphatase Total Protein Albumin Urine Color Urine Appearance Urine pH Ur Specific [place] Urine Protein Urine Glucose (UA) Urine Ketones Urine Blood Urine Nitrite Urine Bilirubin Urine Urobilinogen Ur Leukocyte Esterase RPR Titer Nonreactive 12/23/17 12/24/17 17:00 05:20 WBC RBC Hgb Hct MCV MCH MCHC RDW Plt Count MPV Sodium Potassium Chloride Carbon Dioxide Anion Gap BUN Creatinine Creat Clearance w eGFR POC Glucometer 178 Random Glucose Calcium Total Bilirubin AST ALT Alkaline Phosphatase Total Protein Albumin Urine Color Ltyellow Urine Appearance Clear Urine pH 7.0 Ur Specific [place] 1.004 Urine Protein Negative Urine Glucose (UA) Negative Urine Ketones Negative Urine Blood Negative Urine Nitrite Negative Urine Bilirubin Negative Urine Urobilinogen 2.0 Ur Leukocyte Esterase Negative RPR Titer Labs noted: increased serum glucose Assessment: 12/24/17 16:06 Withdrawal symptoms Noted with hyperglycemia Plan: Continue detox Hyperglycemia secondary to DMT2: continue finger stick glucose, start metformin 500mg PO bid
[2017-12-24] MEDS: metFORMIN HCL 500 MG TABLET (FP) PO SCH (17:04)
[2017-12-24] MEDS: chlordiazePOXIDE 5 MG CAPSULE PO SCH (22:12)
[2017-12-24] MEDS: ARIPiprazole 2 MG TABLET PO SCH (22:14)
[2017-12-24] MEDS: MIRTAZAPINE 15 MG TABLET (FP) PO SCH (22:14)
[2017-12-24] MEDS: THIAMINE HCL 100 MG TABLET (FP) PO SCH (22:16)
[2017-12-25] MEDS: chlordiazePOXIDE 5 MG CAPSULE PO SCH ×3 (05:09→18:09)
[2017-12-25] MEDS: metFORMIN HCL 500 MG TABLET (FP) PO SCH ×2 (08:19→18:09)
[2017-12-25] MEDS: NICOTINE 14 MG/24 HOURS TOPICAL PATCH TD SCH (11:10)
[2017-12-25] MEDS: PRENATAL VITAMINS W/ FOLIC ACID TABLET (FP) PO SCH (11:10)
[2017-12-25] MEDS: amLODIPine BESYLATE 5 MG TABLET (FP) PO SCH (11:10)
[2017-12-25] MEDS: BACITRACIN 0.9 GM PACKET TP SCH ×2 (11:10→22:05)
[2017-12-25] MEDS: MINERAL OIL/PETROLAT/WATER TOPICAL CREAM 113 GM JAR TP SCH ×2 (11:10→22:07)
[2017-12-25] MEDS ORDERED: ALBUTEROL SO4 18 GM HFA INHALER IH PRN (12:24)
--- NOTE | 2017-12-25 12:38 | PN ---
BHS Progress Note (SOAP) Subjective: shakes sweats Objective: 12/25/17 12:34 eating in bed A & O x 3 Vital Signs Temperature 97.3 F L 12/25/17 11:08 Pulse Rate 103 H 12/25/17 11:08 Respiratory Rate 18 12/25/17 11:08 Blood Pressure 142/94 12/25/17 11:08 O2 Sat by Pulse Oximetry (%) Assessment: 12/25/17 12:37 withdrawal sx Plan: continue detox
[2017-12-25] MEDS: chlordiazePOXIDE HCL 10 MG CAPSULE PO SCH (22:05)
[2017-12-25] MEDS: THIAMINE HCL 100 MG TABLET (FP) PO SCH (22:06)
[2017-12-25] MEDS: MIRTAZAPINE 15 MG TABLET (FP) PO SCH (22:06)
[2017-12-25] MEDS: ARIPiprazole 2 MG TABLET PO SCH (22:07)
[2017-12-26] MEDS: chlordiazePOXIDE HCL 10 MG CAPSULE PO SCH ×2 (05:58→10:20)
[2017-12-26] MEDS: metFORMIN HCL 500 MG TABLET (FP) PO SCH (06:15)
[2017-12-26 10:08] VITALS: BP 138/91; PULSE 111; TEMP 97.3
[2017-12-26] MEDS: MINERAL OIL/PETROLAT/WATER TOPICAL CREAM 113 GM JAR TP SCH (10:12)
[2017-12-26] MEDS: PRENATAL VITAMINS W/ FOLIC ACID TABLET (FP) PO SCH (10:12)
[2017-12-26] MEDS: amLODIPine BESYLATE 5 MG TABLET (FP) PO SCH (10:13)
[2017-12-26] MEDS: BACITRACIN 0.9 GM PACKET TP SCH (10:13)
[2017-12-26] MEDS: NICOTINE 14 MG/24 HOURS TOPICAL PATCH TD SCH (10:14)
--- NOTE | 2017-12-26 14:45 | DS ---
[facility] Detox Discharge Summary Admission Date: 12/22/17 Discharge Date: 12/26/17 - History Pertinent Past History: asthma Dm 2 HTN Depression - Physical Exam Results Vital Signs: Vital Signs Temperature 97.3 F L 12/26/17 10:06 Pulse Rate 111 H 12/26/17 10:06 Respiratory Rate 18 12/26/17 10:06 Blood Pressure 138/91 12/26/17 10:06 O2 Sat by Pulse Oximetry (%) Pertinent Admission Physical Exam Findings: withdrawal sx - Treatment Hospital Course: Detox Protocol Followed, Detoxed Safely, Responded well, Discharged Condition Good, Rehab Referral Accepted Patient has Accepted a Rehab Referral to: [facility] Rehab - [facility] - Medication Discharge Medications: Ambulatory Orders Amlodipine Besylate [Norvasc -] 10 mg PO DAILY 03/04/16 Aripiprazole [Abilify -] 2 mg PO DAILY 12/22/17 Gabapentin [Neurontin -] 300 mg PO BID 12/22/17 Mirtazapine [Remeron -] 15 mg PO DAILY 12/22/17 Multivitamins [Tab-A-Vit -] 1 tab PO DAILY 12/22/17 - Diagnosis (1) Alcohol dependence with uncomplicated withdrawal Status: Acute (2) Nicotine dependence Status: Chronic Qualifiers: Nicotine product type: cigarettes Substance use status: in withdrawal Qualified Code(s): F17.213 - Nicotine dependence, cigarettes, with withdrawal (3) Substance induced mood disorder Status: Acute (4) Diabetes mellitus Status: Chronic Qualifiers: Diabetes mellitus type: type 2 Diabetes mellitus complication status: with unspecified complications Diabetes mellitus terminal operator insulin use: without chcf use Qualified Code(s): E11.8 - Type 2 diabetes mellitus with unspecified complications (5) HTN (hypertension) Status: Chronic Qualifiers: Hypertension type: essential hypertension - AMA Did Patient Leave Against Medical Advice: No
== END 2017-12-26 01:17 | disposition other institution (70) | DRG 775 ==
LOC: YASAS 12:28 → Y3N 16:22
PROVIDERS: ADMIT Internal Medicine; ATTEND Internal Medicine
PROC: HZ2ZZZZ Detoxification Services for Substance Abuse Treatment (ICD-10-PCS; principal; 2017-12-22)
DX: F10.230 Alcohol dependence with withdrawal, uncomplicated (principal); F17.213 Nicotine dependence, cigarettes, with withdrawal; F31.9 Bipolar disorder, unspecified; F19.24 Other psychoactive substance dependence with psychoactive substance-induced mood disorder; E11.65 Type 2 diabetes mellitus with hyperglycemia; E11.8 Type 2 diabetes mellitus with unspecified complications; I10 Essential (primary) hypertension; B18.2 Chronic viral hepatitis C; G47.00 Insomnia, unspecified; L03.115 Cellulitis of right lower limb; J45.909 Unspecified asthma, uncomplicated; K21.9 Gastro-esophageal reflux disease without esophagitis; Z87.438 Personal history of other diseases of male genital organs; Z87.898 Personal history of other specified conditions; Z91.5 Personal history of self-harm
CPT/HCPCS: 36415; 80053; 81003; 82962; 85027; 86593; 93005; 93010

== ENCOUNTER 2017-12-26 13:20 | Inpatient (IN) | payer OTHER ==
[2017-12-26] MEDS ORDERED: MENTHOL/PHENOL 1 EACH UD MM PRN (16:04)
[2017-12-26] MEDS ORDERED: LOPERAMIDE HCL 2 MG CAPSULE PO PRN (16:04)
[2017-12-26] MEDS ORDERED: MAGNESIUM CITRATE 300 ML BOTTLE PO PRN (16:04)
[2017-12-26] MEDS ORDERED: MAGNESIUM HYDROX 2400MG/30ML ORAL SUSPENSION 30 ML CUP PO PRN (16:04)
[2017-12-26] MEDS ORDERED: guaiFENesin/D-METHORPHAN HB 10 ML UNIT-DOSE CUPS PO PRN (16:04)
[2017-12-26] MEDS ORDERED: P-EPHED 60MG/TRIPROLIDI 2.5MG TABLET PO PRN (16:04)
[2017-12-26] MEDS ORDERED: ACETAMINOPHEN 325 MG TABLET (FP) PO PRN (16:04)
--- NOTE | 2017-12-26 16:04 | HP ---
[facility] Re[facility] Assess/Revision - Admission History Ad[facility] to Rehab [facility] Date of Admission to Rehab: 12/26/2017 - Vital signs Vital Signs: Vital Signs Period Temp Pulse Resp BP Sys/Muse Pulse Ox Last 24 Hr 97.9 F 114 18 132/78 - Findings Detox History & Physical reviewed: Yes Concur with findings: Yes Inpatient Rehab Admission - Initial Determination Are CD services needed?: Yes Free of communicable disease: Yes Not in need of hospitalization: Yes - Rehab Admission Criteria Lacks judgement: Yes Patient is meeting Inpatient Rehab admission criteria:: Yes
[2017-12-26] MEDS: MAG HYDROX/AL HYDROX/SIMETH 30 ML UNIT-DOSE CUP PO PRN (21:00)
[2017-12-26] MEDS: THIAMINE HCL 100 MG TABLET (FP) PO SCH (21:00)
[2017-12-26] MEDS: hydrOXYzine PAMOATE 50 MG CAPSULE (FP) PO PRN (21:02)
[2017-12-27] MEDS: amLODIPine BESYLATE 10 MG TABLET (FP) PO SCH (10:24)
[2017-12-27] MEDS: NICOTINE 14 MG/24 HOURS TOPICAL PATCH TD SCH (10:24)
[2017-12-27] MEDS: PRENATAL VITAMINS W/ FOLIC ACID TABLET (FP) PO SCH (10:24)
[2017-12-27] MEDS: NICOTINE POLACRILEX 2 MG GUM BUC PRN (10:27)
[2017-12-27] MEDS: RANITIDINE HCL 150 MG TABLET (FP) PO SCH ×2 (12:19→21:35)
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
[2017-12-27] MEDS: MAG HYDROX/AL HYDROX/SIMETH 30 ML UNIT-DOSE CUP PO PRN (14:28)
[2017-12-27] MEDS: THIAMINE HCL 100 MG TABLET (FP) PO SCH (21:35)
[2017-12-27] MEDS: MIRTAZAPINE 15 MG TABLET (FP) PO SCH (21:35)
[2017-12-27] MEDS: GABAPENTIN 300 MG CAPSULE (FP) PO SCH (21:35)
[2017-12-28] MEDS: RANITIDINE HCL 150 MG TABLET (FP) PO SCH ×2 (11:00→21:42)
[2017-12-28] MEDS: amLODIPine BESYLATE 10 MG TABLET (FP) PO SCH (11:00)
[2017-12-28] MEDS: NICOTINE 14 MG/24 HOURS TOPICAL PATCH TD SCH (11:00)
[2017-12-28] MEDS: PRENATAL VITAMINS W/ FOLIC ACID TABLET (FP) PO SCH (11:00)
[2017-12-28] MEDS: GABAPENTIN 300 MG CAPSULE (FP) PO SCH ×2 (11:00→21:42)
[2017-12-28] MEDS: NICOTINE POLACRILEX 2 MG GUM BUC PRN ×2 (11:19→22:47)
[2017-12-28] MEDS: ARIPiprazole 2 MG TABLET PO SCH (11:36)
[2017-12-28] MEDS: BACITRACIN 0.9 GM PACKET TP SCH (11:37)
--- NOTE | 2017-12-28 11:45 | PN ---
S Progress Note (SOAP) Subjective: dry cough, for several months smokes nicotine, pcp and cocaine Objective: 12/28/17 11:43 Vital Signs - 24 hr 12/28/17 12/28/17 12/28/17 00:30 03:30 07:00 Temperature 97.9 F Pulse Rate 103 H Respiratory 18 18 18 Rate Blood Pressure 139/94 Laboratory Tests 12/27/17 12/28/17 06:12 06:29 POC Glucometer 128 102 labs reviewed 12/28/17 11:44 neg urinalysis Assessment: 12/28/17 11:44 colette coug - smokers , d/c nicotine, pcp and cocaine f/u pcp on discharge if cough persists, guafensin prn, revieweded blood work and urinalysis no evidence of kidney disease, mild aneami, cotn vitmin supplementation
[2017-12-28] MEDS: IBUPROFEN 400 MG TABLET (FP) PO PRN ×2 (16:28→22:46)
[2017-12-28] MEDS: THIAMINE HCL 100 MG TABLET (FP) PO SCH (21:42)
[2017-12-28] MEDS: MIRTAZAPINE 15 MG TABLET (FP) PO SCH (21:42)
[2017-12-29] MEDS: BACITRACIN 0.9 GM PACKET TP SCH (10:38)
[2017-12-29] MEDS: GABAPENTIN 300 MG CAPSULE (FP) PO SCH ×2 (10:38→21:52)
[2017-12-29] MEDS: PRENATAL VITAMINS W/ FOLIC ACID TABLET (FP) PO SCH (10:38)
[2017-12-29] MEDS: amLODIPine BESYLATE 10 MG TABLET (FP) PO SCH (10:38)
[2017-12-29] MEDS: RANITIDINE HCL 150 MG TABLET (FP) PO SCH ×2 (10:38→21:52)
[2017-12-29] MEDS: ARIPiprazole 2 MG TABLET PO SCH (10:39)
[2017-12-29] MEDS: NICOTINE 14 MG/24 HOURS TOPICAL PATCH TD SCH (10:39)
[2017-12-29] MEDS: NICOTINE POLACRILEX 2 MG GUM BUC PRN ×2 (10:42→21:54)
[2017-12-29] MEDS: THIAMINE HCL 100 MG TABLET (FP) PO SCH (21:52)
[2017-12-29] MEDS: MIRTAZAPINE 15 MG TABLET (FP) PO SCH (21:53)
[2017-12-30] MEDS: amLODIPine BESYLATE 10 MG TABLET (FP) PO SCH (10:24)
[2017-12-30] MEDS: BACITRACIN 0.9 GM PACKET TP SCH (10:24)
[2017-12-30] MEDS: GABAPENTIN 300 MG CAPSULE (FP) PO SCH ×2 (10:24→21:39)
[2017-12-30] MEDS: PRENATAL VITAMINS W/ FOLIC ACID TABLET (FP) PO SCH (10:25)
[2017-12-30] MEDS: NICOTINE 14 MG/24 HOURS TOPICAL PATCH TD SCH ×2 (10:25)
[2017-12-30] MEDS: RANITIDINE HCL 150 MG TABLET (FP) PO SCH ×2 (10:25→21:41)
[2017-12-30] MEDS: ARIPiprazole 2 MG TABLET PO SCH (10:25)
--- NOTE | 2017-12-30 13:22 | PN ---
BHS Progress Note (SOAP) Subjective: C/O OUTBREAK GENITAL HERPES ON PENI Objective: 12/30/17 13:21 Vital Signs - 24 hr 12/30/17 12/30/17 03:30 06:56 Temperature 98.2 F Pulse Rate 105 H Respiratory 18 18 Rate Blood Pressure 144/90 Laboratory Tests 12/27/17 12/28/17 12/29/17 06:12 06:29 06:18 POC Glucometer 128 102 143 12/30/17 06:34 POC Glucometer 123 LABS REVEIWED Assessment: 12/30/17 13:21 GENITAL HERPES - WILL GIVE VALTREX
[2017-12-30] MEDS: CLOTRIMAZOLE/BETAMET DIPROP TOPICAL CREAM 45 GM TUBE TP SCH ×2 (14:33→21:40)
[2017-12-30] MEDS: valACYclovir HCL 500 MG TABLET (FP) PO SCH ×2 (14:33→21:40)
[2017-12-30] MEDS: THIAMINE HCL 100 MG TABLET (FP) PO SCH (21:39)
[2017-12-30] MEDS: MIRTAZAPINE 15 MG TABLET (FP) PO SCH (21:40)
[2017-12-30] MEDS: IBUPROFEN 400 MG TABLET (FP) PO PRN (21:41)
[2017-12-31] MEDS: valACYclovir HCL 500 MG TABLET (FP) PO SCH ×2 (10:36→21:36)
[2017-12-31] MEDS: PRENATAL VITAMINS W/ FOLIC ACID TABLET (FP) PO SCH (10:36)
[2017-12-31] MEDS: GABAPENTIN 300 MG CAPSULE (FP) PO SCH ×2 (10:36→21:37)
[2017-12-31] MEDS: BACITRACIN 0.9 GM PACKET TP SCH (10:37)
[2017-12-31] MEDS: amLODIPine BESYLATE 10 MG TABLET (FP) PO SCH (10:37)
[2017-12-31] MEDS: RANITIDINE HCL 150 MG TABLET (FP) PO SCH ×2 (10:38→21:37)
[2017-12-31] MEDS: NICOTINE 14 MG/24 HOURS TOPICAL PATCH TD SCH (10:38)
[2017-12-31] MEDS: ARIPiprazole 2 MG TABLET PO SCH (10:41)
[2017-12-31] MEDS: CLOTRIMAZOLE/BETAMET DIPROP TOPICAL CREAM 45 GM TUBE TP SCH ×2 (10:42→21:37)
[2017-12-31] MEDS: MIRTAZAPINE 15 MG TABLET (FP) PO SCH (21:37)
[2017-12-31] MEDS: THIAMINE HCL 100 MG TABLET (FP) PO SCH (21:37)
[2017-12-31] MEDS: IBUPROFEN 400 MG TABLET (FP) PO PRN (21:39)
[2017-12-31] MEDS: NICOTINE POLACRILEX 2 MG GUM BUC PRN (21:40)
[2018-01-01] MEDS: RANITIDINE HCL 150 MG TABLET (FP) PO SCH ×2 (10:45→21:39)
[2018-01-01] MEDS: BACITRACIN 0.9 GM PACKET TP SCH (10:45)
[2018-01-01] MEDS: GABAPENTIN 300 MG CAPSULE (FP) PO SCH ×2 (10:45→21:38)
[2018-01-01] MEDS: CLOTRIMAZOLE/BETAMET DIPROP TOPICAL CREAM 45 GM TUBE TP SCH ×2 (10:48→21:40)
[2018-01-01] MEDS: PRENATAL VITAMINS W/ FOLIC ACID TABLET (FP) PO SCH (10:49)
[2018-01-01] MEDS: NICOTINE 14 MG/24 HOURS TOPICAL PATCH TD SCH (10:49)
[2018-01-01] MEDS: valACYclovir HCL 500 MG TABLET (FP) PO SCH ×2 (10:51→21:38)
[2018-01-01] MEDS: amLODIPine BESYLATE 10 MG TABLET (FP) PO SCH (10:51)
[2018-01-01] MEDS: IBUPROFEN 400 MG TABLET (FP) PO PRN (10:52)
[2018-01-01] MEDS: ARIPiprazole 2 MG TABLET PO SCH (10:53)
[2018-01-01] MEDS: THIAMINE HCL 100 MG TABLET (FP) PO SCH (21:39)
[2018-01-01] MEDS: MIRTAZAPINE 15 MG TABLET (FP) PO SCH (21:39)
[2018-01-01] MEDS: NICOTINE POLACRILEX 2 MG GUM BUC PRN (21:41)
[2018-01-02] MEDS: hydrOXYzine PAMOATE 50 MG CAPSULE (FP) PO PRN ×2 (02:51→21:44)
[2018-01-02] MEDS: valACYclovir HCL 500 MG TABLET (FP) PO SCH ×2 (10:59→21:41)
[2018-01-02] MEDS: PRENATAL VITAMINS W/ FOLIC ACID TABLET (FP) PO SCH (10:59)
[2018-01-02] MEDS: BACITRACIN 0.9 GM PACKET TP SCH (10:59)
[2018-01-02] MEDS: amLODIPine BESYLATE 10 MG TABLET (FP) PO SCH (10:59)
[2018-01-02] MEDS: GABAPENTIN 300 MG CAPSULE (FP) PO SCH ×2 (10:59→21:44)
[2018-01-02] MEDS: CLOTRIMAZOLE/BETAMET DIPROP TOPICAL CREAM 45 GM TUBE TP SCH ×2 (11:00→21:42)
[2018-01-02] MEDS: ARIPiprazole 2 MG TABLET PO SCH (11:00)
[2018-01-02] MEDS: NICOTINE 14 MG/24 HOURS TOPICAL PATCH TD SCH (11:00)
[2018-01-02] MEDS: RANITIDINE HCL 150 MG TABLET (FP) PO SCH ×2 (11:00→21:43)
[2018-01-02] MEDS ORDERED: CYCLOBENZAPRINE HCL 10 MG TABLET (FP) PO PRN (13:35)
[2018-01-02] MEDS: LIDOCAINE 5% TOPICAL PATCH TP SCH (14:53)
[2018-01-02] MEDS: NAPROXEN 500 MG TABLET (FP) PO SCH ×2 (14:53→21:42)
[2018-01-02] MEDS: NICOTINE POLACRILEX 2 MG GUM BUC PRN ×2 (17:07→21:46)
[2018-01-02] MEDS: MIRTAZAPINE 15 MG TABLET (FP) PO SCH (21:42)
[2018-01-02] MEDS: THIAMINE HCL 100 MG TABLET (FP) PO SCH (21:42)
[2018-01-02] MEDS: LIDOCAINE PATCH REMOVAL MC SCH (21:46)
[2018-01-03] MEDS: BACITRACIN 0.9 GM PACKET TP SCH (10:18)
[2018-01-03] MEDS: GABAPENTIN 300 MG CAPSULE (FP) PO SCH ×2 (10:18→21:39)
[2018-01-03] MEDS: amLODIPine BESYLATE 10 MG TABLET (FP) PO SCH (10:18)
[2018-01-03] MEDS: valACYclovir HCL 500 MG TABLET (FP) PO SCH ×2 (10:18→21:39)
[2018-01-03] MEDS: PRENATAL VITAMINS W/ FOLIC ACID TABLET (FP) PO SCH (10:18)
[2018-01-03] MEDS: NAPROXEN 500 MG TABLET (FP) PO SCH ×2 (10:18→21:39)
[2018-01-03] MEDS: CLOTRIMAZOLE/BETAMET DIPROP TOPICAL CREAM 45 GM TUBE TP SCH ×2 (10:19→21:41)
[2018-01-03] MEDS: RANITIDINE HCL 150 MG TABLET (FP) PO SCH ×2 (10:19→21:41)
[2018-01-03] MEDS: NICOTINE 14 MG/24 HOURS TOPICAL PATCH TD SCH (10:19)
[2018-01-03] MEDS: LIDOCAINE 5% TOPICAL PATCH TP SCH (10:57)
[2018-01-03] MEDS: ARIPiprazole 2 MG TABLET PO SCH (10:57)
[2018-01-03] MEDS: THIAMINE HCL 100 MG TABLET (FP) PO SCH (21:39)
[2018-01-03] MEDS: MIRTAZAPINE 15 MG TABLET (FP) PO SCH (21:40)
[2018-01-03] MEDS: LIDOCAINE PATCH REMOVAL MC SCH (21:41)
[2018-01-04] MEDS: valACYclovir HCL 500 MG TABLET (FP) PO SCH ×2 (10:31→22:03)
[2018-01-04] MEDS: GABAPENTIN 300 MG CAPSULE (FP) PO SCH ×2 (10:32→22:02)
[2018-01-04] MEDS: BACITRACIN 0.9 GM PACKET TP SCH (10:32)
[2018-01-04] MEDS: PRENATAL VITAMINS W/ FOLIC ACID TABLET (FP) PO SCH (10:32)
[2018-01-04] MEDS: amLODIPine BESYLATE 10 MG TABLET (FP) PO SCH (10:32)
[2018-01-04] MEDS: NAPROXEN 500 MG TABLET (FP) PO SCH ×2 (10:32→22:03)
[2018-01-04] MEDS: CLOTRIMAZOLE/BETAMET DIPROP TOPICAL CREAM 45 GM TUBE TP SCH ×2 (10:33→22:01)
[2018-01-04] MEDS: LIDOCAINE 5% TOPICAL PATCH TP SCH (10:33)
[2018-01-04] MEDS: ARIPiprazole 2 MG TABLET PO SCH (10:34)
[2018-01-04] MEDS: NICOTINE 14 MG/24 HOURS TOPICAL PATCH TD SCH (10:34)
[2018-01-04] MEDS: RANITIDINE HCL 150 MG TABLET (FP) PO SCH ×2 (10:34→22:03)
[2018-01-04] MEDS: NICOTINE POLACRILEX 2 MG GUM BUC PRN (10:36)
[2018-01-04] MEDS: MAG HYDROX/AL HYDROX/SIMETH 30 ML UNIT-DOSE CUP PO PRN (14:27)
[2018-01-04] MEDS: LIDOCAINE PATCH REMOVAL MC SCH (22:01)
[2018-01-04] MEDS: THIAMINE HCL 100 MG TABLET (FP) PO SCH (22:02)
[2018-01-04] MEDS: MIRTAZAPINE 15 MG TABLET (FP) PO SCH (22:03)
[2018-01-05] MEDS: amLODIPine BESYLATE 10 MG TABLET (FP) PO SCH (10:47)
[2018-01-05] MEDS: BACITRACIN 0.9 GM PACKET TP SCH (10:47)
[2018-01-05] MEDS: ARIPiprazole 2 MG TABLET PO SCH (10:48)
[2018-01-05] MEDS: RANITIDINE HCL 150 MG TABLET (FP) PO SCH ×2 (10:48→21:46)
[2018-01-05] MEDS: valACYclovir HCL 500 MG TABLET (FP) PO SCH ×2 (10:49→21:45)
[2018-01-05] MEDS: PRENATAL VITAMINS W/ FOLIC ACID TABLET (FP) PO SCH (10:49)
[2018-01-05] MEDS: CLOTRIMAZOLE/BETAMET DIPROP TOPICAL CREAM 45 GM TUBE TP SCH ×2 (10:49→21:46)
[2018-01-05] MEDS: GABAPENTIN 300 MG CAPSULE (FP) PO SCH ×2 (10:49→21:45)
[2018-01-05] MEDS: NAPROXEN 500 MG TABLET (FP) PO SCH ×2 (10:49→21:46)
[2018-01-05] MEDS: NICOTINE 14 MG/24 HOURS TOPICAL PATCH TD SCH (10:50)
[2018-01-05] MEDS: LIDOCAINE 5% TOPICAL PATCH TP SCH (10:50)
[2018-01-05] MEDS: NICOTINE POLACRILEX 2 MG GUM BUC PRN ×2 (17:38→21:48)
[2018-01-05] MEDS: MIRTAZAPINE 15 MG TABLET (FP) PO SCH (21:46)
[2018-01-05] MEDS: LIDOCAINE PATCH REMOVAL MC SCH (21:46)
[2018-01-05] MEDS: THIAMINE HCL 100 MG TABLET (FP) PO SCH (21:46)
[2018-01-06] MEDS: PRENATAL VITAMINS W/ FOLIC ACID TABLET (FP) PO SCH (10:10)
[2018-01-06] MEDS: ARIPiprazole 2 MG TABLET PO SCH (10:10)
[2018-01-06] MEDS: BACITRACIN 0.9 GM PACKET TP SCH (10:11)
[2018-01-06] MEDS: GABAPENTIN 300 MG CAPSULE (FP) PO SCH (10:11)
[2018-01-06] MEDS: CLOTRIMAZOLE/BETAMET DIPROP TOPICAL CREAM 45 GM TUBE TP SCH ×2 (10:11→21:31)
[2018-01-06] MEDS: valACYclovir HCL 500 MG TABLET (FP) PO SCH ×2 (10:11→21:31)
[2018-01-06] MEDS: NAPROXEN 500 MG TABLET (FP) PO SCH ×2 (10:11→21:31)
[2018-01-06] MEDS: NICOTINE 14 MG/24 HOURS TOPICAL PATCH TD SCH (10:12)
[2018-01-06] MEDS: amLODIPine BESYLATE 10 MG TABLET (FP) PO SCH (10:12)
[2018-01-06] MEDS: RANITIDINE HCL 150 MG TABLET (FP) PO SCH ×2 (10:13→21:32)
[2018-01-06] MEDS: LIDOCAINE 5% TOPICAL PATCH TP SCH (10:14)
[2018-01-06] MEDS: THIAMINE HCL 100 MG TABLET (FP) PO SCH (21:31)
[2018-01-06] MEDS: MIRTAZAPINE 15 MG TABLET (FP) PO SCH (21:31)
[2018-01-06] MEDS: LIDOCAINE PATCH REMOVAL MC SCH (21:31)
[2018-01-06] MEDS: NICOTINE POLACRILEX 2 MG GUM BUC PRN (21:33)
[2018-01-07] MEDS: BACITRACIN 0.9 GM PACKET TP SCH (10:16)
[2018-01-07] MEDS: amLODIPine BESYLATE 10 MG TABLET (FP) PO SCH (10:16)
[2018-01-07] MEDS: ARIPiprazole 2 MG TABLET PO SCH (10:17)
[2018-01-07] MEDS: NICOTINE 14 MG/24 HOURS TOPICAL PATCH TD SCH (10:17)
[2018-01-07] MEDS: LIDOCAINE 5% TOPICAL PATCH TP SCH (10:17)
[2018-01-07] MEDS: NAPROXEN 500 MG TABLET (FP) PO SCH ×2 (10:17→21:35)
[2018-01-07] MEDS: PRENATAL VITAMINS W/ FOLIC ACID TABLET (FP) PO SCH (10:17)
[2018-01-07] MEDS: CLOTRIMAZOLE/BETAMET DIPROP TOPICAL CREAM 45 GM TUBE TP SCH ×2 (10:17→21:37)
[2018-01-07] MEDS: valACYclovir HCL 500 MG TABLET (FP) PO SCH ×2 (10:18→21:36)
[2018-01-07] MEDS: RANITIDINE HCL 150 MG TABLET (FP) PO SCH ×2 (10:18→21:37)
[2018-01-07] MEDS: THIAMINE HCL 100 MG TABLET (FP) PO SCH (21:35)
[2018-01-07] MEDS: MIRTAZAPINE 15 MG TABLET (FP) PO SCH (21:37)
[2018-01-07] MEDS: LIDOCAINE PATCH REMOVAL MC SCH (21:38)
[2018-01-08] MEDS: valACYclovir HCL 500 MG TABLET (FP) PO SCH ×2 (10:21→21:36)
[2018-01-08] MEDS: PRENATAL VITAMINS W/ FOLIC ACID TABLET (FP) PO SCH (10:21)
[2018-01-08] MEDS: NAPROXEN 500 MG TABLET (FP) PO SCH ×2 (10:21→21:36)
[2018-01-08] MEDS: amLODIPine BESYLATE 10 MG TABLET (FP) PO SCH (10:21)
[2018-01-08] MEDS: BACITRACIN 0.9 GM PACKET TP SCH (10:21)
[2018-01-08] MEDS: ARIPiprazole 2 MG TABLET PO SCH (10:22)
[2018-01-08] MEDS: LIDOCAINE 5% TOPICAL PATCH TP SCH (10:22)
[2018-01-08] MEDS: CLOTRIMAZOLE/BETAMET DIPROP TOPICAL CREAM 45 GM TUBE TP SCH ×2 (10:22→21:37)
[2018-01-08] MEDS: NICOTINE 14 MG/24 HOURS TOPICAL PATCH TD SCH (10:23)
[2018-01-08] MEDS: RANITIDINE HCL 150 MG TABLET (FP) PO SCH ×2 (10:23→21:37)
[2018-01-08] MEDS: NICOTINE POLACRILEX 2 MG GUM BUC PRN (10:26)
[2018-01-08] MEDS: MIRTAZAPINE 15 MG TABLET (FP) PO SCH (21:36)
[2018-01-08] MEDS: THIAMINE HCL 100 MG TABLET (FP) PO SCH (21:36)
[2018-01-08] MEDS: LIDOCAINE PATCH REMOVAL MC SCH (21:37)
[2018-01-09] MEDS: hydrOXYzine PAMOATE 50 MG CAPSULE (FP) PO PRN (00:56)
[2018-01-09 07:04] VITALS: BP 135/93; PULSE 97; TEMP 98
--- NOTE | 2018-01-09 08:25 | PN ---
Psychiatric Progress Note Vital Signs: Vital Signs Period Temp Pulse Resp BP Sys/Muse Pulse Ox Last 24 Hr 98.0 F 97 18-18 135/93 Date of Session: 01/09/18 Chief Complaint:: discharge visit HPI: Patient has addressed alcohol, cocaine and nicotine dependence comorbid Bipolar I disorder. ROS: HTN, Hep C, DM medically managed. Current Medications: Active Medications Generic Name Dose Route Start Last Admin Trade Name Freq PRN Reason Stop Dose Admin Al Hydroxide/Mg Hydroxide 30 ml 12/26/17 16:04 01/04/18 14:27 Mylanta Oral Suspension - PO 30 ml Q6H PRN Administration DYSPEPSIA Amlodipine Besylate 10 mg 12/27/17 10:00 01/08/18 10:21 Norvasc - PO 10 mg DAILY SUDHEER Administration Aripiprazole 2 mg 12/28/17 10:00 01/08/18 10:22 Abilify PO 2 mg DAILY SUDHEER Administration Bacitracin 0.9 gm 12/28/17 11:30 01/08/18 10:21 Bacitracin - TP 0.9 gm DAILY SUDHEER Administration Clotrimazole 1 applic 12/30/17 14:15 01/08/18 21:37 Lotrisone Cream (Large Tube) - TP Not Given BID SUDHEER Cyclobenzaprine HCl 10 mg 01/02/18 13:35 Flexeril - PO TID PRN PAIN LEVEL 6-10 Eucalyptus/Menthol/Phenol/Sorbitol 1 each 12/26/17 16:04 Cepastat Lozenge - MM Q4H PRN SORE THROAT Guaifenesin 10 ml 12/26/17 16:04 Robitussin Dm - PO Q6H PRN COUGH Hydroxyzine Pamoate 50 mg 12/26/17 16:04 01/09/18 00:56 Vistaril - PO 50 mg Q4H PRN Administration AGITATION Lidocaine 1 patch 01/02/18 14:03 01/08/18 10:22 Lidoderm Patch - TP 1 patch DAILY SUDHEER Administration Loperamide HCl 4 mg 12/26/17 16:04 12/27/17 07:03 Imodium - PO 4 mg Q6H PRN Administration DIARRHEA Magnesium Citrate 300 ml 12/26/17 16:04 Citroma - PO Q48H PRN CONSTIPATION Magnesium Hydroxide 30 ml 12/26/17 16:04 Milk Of Magnesia - PO DAILY PRN CONSTIPATION Mirtazapine 7.5 mg 12/27/17 22:00 01/08/18 21:36 Remeron - PO 7.5 mg HS SUDHEER Administration Miscellaneous 1 each 01/02/18 22:00 01/08/18 21:37 Lidoderm Patch Removal MC 1 each DAILY@2200 SUDHEER Administration Naproxen 500 mg 01/02/18 14:05 01/08/18 21:36 Naprosyn - PO 500 mg BID SUDHEER Administration Nicotine 14 mg 12/27/17 10:00 01/08/18 10:23 Nicoderm Patch - TD 14 mg DAILY SUDHEER Administration Nicotine Polacrilex 2 mg 12/26/17 16:04 01/08/18 10:26 Nicorette Gum - BUC 2 mg Q2H PRN Administration NICOTINE REPLACEMENT RX Multivit/Folic Acid/Iron 1 tab 12/27/17 10:00 01/08/18 10:21 Vitamins (Sjr) - PO 1 tab DAILY SUDHEER Administration Pseudoephedrine/Triprolidine 1 combo 12/26/17 16:04 Actifed - PO TID PRN NASAL CONGESTION Ranitidine HCl 150 mg 12/27/17 11:15 01/08/18 21:37 Zantac - PO 150 mg BID SUDHEER Administration Thiamine HCl 100 mg 12/26/17 22:00 01/08/18 21:36 Vitamin B1 - PO 100 mg HS SUDHEER Administration Valacyclovir HCl 500 mg 12/30/17 14:15 01/08/18 21:36 Valtrex - PO 500 mg BID SUDHEER Administration Current Side Effect: No Lab tests ordered: No Lab tests reviewed: Yes Provider note:: Patient has completed today his treatement and met his goals, will continue to address his issues at [facility]. Patient verbalized understanding of importance to continue his abstinence and changning attitudes, patient was encouraged to utilize all supports available to prevent relapses. Scripts for Abilify and Remeron provided, he is stable for discharge today. Total face to face time:: 25 Mental Status Exam - Mental Status Exam Alert and Oriented to: Time, Place, Person Cognitive Function: Good Patient Appearance: Well Groomed Mood: Hopeful Affect: Appropriate, Mood Congruent Patient Behavior: Appropriate, Cooperative Speech Pattern: Clear, Appropriate Voice Loudness: Normal Thought Process: Intact, Goal Oriented Thought Disorder: Not Present Hallucinations: Denies Suicidal Ideation: Denies Homicidal Ideation: Denies Insight/Judgement: Fair Sleep: Fair Appetite: Fair Muscle strength/Tone: Normal Gait/Station: Normal Psychiatric Treatment Plan - Problem List (2) Bipolar disorder Comment: Self-report.Currrently asymptomatic.Reported history of non-adherence to medications.Active OPD care at [facility] in [facility]. (3) Nicotine dependence Qualifiers: Nicotine product type: cigarettes Substance use status: in withdrawal Qualified Code(s): F17.213 - Nicotine dependence, cigarettes, with withdrawal
[2018-01-09] MEDS: valACYclovir HCL 500 MG TABLET (FP) PO SCH (09:01)
[2018-01-09] MEDS: BACITRACIN 0.9 GM PACKET TP SCH (09:02)
[2018-01-09] MEDS: ARIPiprazole 2 MG TABLET PO SCH (09:02)
[2018-01-09] MEDS: CLOTRIMAZOLE/BETAMET DIPROP TOPICAL CREAM 45 GM TUBE TP SCH (09:02)
[2018-01-09] MEDS: LIDOCAINE 5% TOPICAL PATCH TP SCH (09:02)
[2018-01-09] MEDS: NAPROXEN 500 MG TABLET (FP) PO SCH (09:02)
[2018-01-09] MEDS: PRENATAL VITAMINS W/ FOLIC ACID TABLET (FP) PO SCH (09:02)
[2018-01-09] MEDS: amLODIPine BESYLATE 10 MG TABLET (FP) PO SCH (09:03)
[2018-01-09] MEDS: RANITIDINE HCL 150 MG TABLET (FP) PO SCH (09:03)
[2018-01-09] MEDS: NICOTINE 14 MG/24 HOURS TOPICAL PATCH TD SCH (09:03)
== END 2018-01-09 09:15 | disposition home or self-care (01) | DRG 772 ==
LOC: YASAS 13:20 → Y5N 13:21
PROVIDERS: ADMIT Psychiatry & Neurology Psychiatry; ATTEND Psychiatry & Neurology Psychiatry
PROC: HZ42ZZZ Group Counseling for Substance Abuse Treatment, Cognitive-Behavioral (ICD-10-PCS; principal; 2017-12-26)
DX: F10.20 Alcohol dependence, uncomplicated (principal); F14.20 Cocaine dependence, uncomplicated; F17.210 Nicotine dependence, cigarettes, uncomplicated; F31.9 Bipolar disorder, unspecified; Z59.0 Homelessness
CPT/HCPCS: 82962

== ENCOUNTER 2018-09-22 10:44 | Inpatient (IN) | payer OTHER ==
[2018-09-22 11:14] VITALS: BMI 22.4
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
[2018-09-22] MEDS ORDERED: ACETAMINOPHEN 325 MG TABLET (FP) PO PRN (11:39)
[2018-09-22] MEDS ORDERED: MAGNESIUM HYDROX 2400MG/30ML ORAL SUSPENSION 30 ML CUP PO PRN (11:39)
[2018-09-22] MEDS ORDERED: IBUPROFEN 400 MG TABLET (FP) PO PRN (11:39)
[2018-09-22] MEDS ORDERED: hydrOXYzine PAMOATE 50 MG CAPSULE (FP) PO PRN (11:39)
[2018-09-22] MEDS ORDERED: MAGNESIUM CITRATE 300 ML BOTTLE PO PRN (11:39)
[2018-09-22] MEDS ORDERED: guaiFENesin/D-METHORPHAN HB 10 ML UNIT-DOSE CUPS PO PRN (11:39)
[2018-09-22] MEDS ORDERED: chlordiazePOXIDE HCL 25 MG CAPSULE PO PRN (11:39)
[2018-09-22] MEDS ORDERED: LOPERAMIDE HCL 2 MG CAPSULE PO PRN (11:39)
[2018-09-22] MEDS ORDERED: P-EPHED 60MG/TRIPROLIDI 2.5MG TABLET PO PRN (11:39)
[2018-09-22] MEDS ORDERED: MAG HYDROX/AL HYDROX/SIMETH 30 ML UNIT-DOSE CUP PO PRN (11:39)
[2018-09-22] MEDS ORDERED: MENTHOL/PHENOL 1 EACH UD MM PRN (11:39)
[2018-09-22] MEDS: amLODIPine BESYLATE 10 MG TABLET (FP) PO SCH (13:20)
--- NOTE | 2018-09-22 14:49 | EKG ---
Test Reason : Blood Pressure : / mmHG Vent. Rate : 103 BPM Atrial Rate : 103 BPM P-R Int : 116 ms QRS Dur : 092 ms QT Int : 362 ms P-R-T Axes : 082 074 052 degrees QTc Int : 474 ms SINUS TACHYCARDIA T WAVE ABNORMALITY, CONSIDER INFERIOR ISCHEMIA ABNORMAL ECG WHEN COMPARED WITH ECG OF 22-DEC-2017 17:45, NO SIGNIFICANT CHANGE WAS FOUND Confirmed by ZANDER HENRIQUEZ MD ([id number]) on 09/22/2018 2:49:20 PM Referred By: Confirmed By:ZANDER HENRIQUEZ MD
[2018-09-22 16:30] LABS: URINE APPEARANCE CLEAR; URINE BILIRUBIN NEGATIVE (<2.0 mg/dL); URINE GLUCOSE (UA) 3+ (NEGATIVE); URINE KETONE NEGATIVE (NEGATIVE); URINE LEUK ESTERASE NEGATIVE (NEGATIVE); URINE NITRITE NEGATIVE (NEGATIVE); URINE PROTEIN 1+ (NEGATIVE); URINE UROBILINOGEN 4.0 E.U/dl mg/dL (0.2-1.0)
[2018-09-22 16:36] LABS: URINE COLOR AMBER
[2018-09-22 16:52] LABS: EPI CELLS RARE /HPF (FEW); URINE BACTERIA RARE /hpf (NONE SEEN); URINE MUCUS FEW
[2018-09-22] MEDS: chlordiazePOXIDE HCL 25 MG CAPSULE PO SCH ×2 (17:26→22:31)
[2018-09-22] MEDS ORDERED: amLODIPine BESYLATE 5 MG TABLET (FP) PO ONE (21:17)
[2018-09-22] MEDS ORDERED: MELATONIN 5 MG TABLETS PO PRN (22:00)
[2018-09-22] MEDS ORDERED: INSULIN SLIDING SCALE (NOVOLOG) 1 VIAL SQ SCH (22:00)
[2018-09-22] MEDS: THIAMINE HCL 100 MG TABLET (FP) PO SCH (22:31)
[2018-09-22] MEDS: INSULIN SLIDING SCALE (NOVOLOG) 1 VIAL SQ SCH (22:32)
[2018-09-23] MEDS: metFORMIN HCL 500 MG TABLET (FP) PO SCH (06:15)
[2018-09-23] MEDS: chlordiazePOXIDE HCL 25 MG CAPSULE PO SCH ×4 (06:15→22:37)
[2018-09-23] MEDS: PRENATAL VITAMINS W/ FOLIC ACID TABLET (FP) PO SCH (10:36)
[2018-09-23] MEDS: amLODIPine BESYLATE 10 MG TABLET (FP) PO SCH (10:37)
[2018-09-23] MEDS: NICOTINE 21 MG/24 HOURS TOPICAL PATCH TD SCH (10:38)
--- NOTE | 2018-09-23 10:57 | PN ---
[facility] CIWA - CIWA Score Nausea/Vomitin-Mild Nausea/No Vomiting Muscle Tremors: 3 Anxiety: 3 Agitation: 2 Paroxysmal Sweats: 2 Orientation: 0-Oriented Tacttile Disturbances: 1-Very Mild Itch/Numbness Auditory Disturbances: 0-None Visual Disturbances: 0-None Headache: 0-None Present CIWA-Ar Total Score: 12 S Progress Note (SOAP) Subjective: chills, sweats, , decrease appetite Objective: 09/23/18 10:56 Vital Signs Temperature 98.6 F 09/23/18 10:53 Pulse Rate 120 H 09/23/18 10:53 Respiratory Rate 20 09/23/18 10:53 Blood Pressure 141/93 09/23/18 10:53 O2 Sat by Pulse Oximetry (%) Laboratory Last Values POC Glucometer 188 UNITS (80-120) 09/23/18 06:14 Urine Color Rosario 09/22/18 15:30 Urine Appearance Clear 09/22/18 15:30 Urine pH 5.0 (5.0-8.0) D 09/22/18 15:30 Ur Specific [place] 1.025 (1.010-1.035) 09/22/18 15:30 Urine Protein 1+ (NEGATIVE) H 09/22/18 15:30 Urine Glucose (UA) 3+ (NEGATIVE) H 09/22/18 15:30 Urine Ketones Negative (NEGATIVE) 09/22/18 15:30 Urine Blood Negative (NEGATIVE) 09/22/18 15:30 Urine Nitrite Negative (NEGATIVE) 09/22/18 15:30 Urine Bilirubin Negative (<2.0 mg/dL) 09/22/18 15:30 Urine Urobilinogen 4.0 e.u/dl mg/dL (0.2-1.0) 09/22/18 15:30 Ur Leukocyte Esterase Negative (NEGATIVE) 09/22/18 15:30 Urine WBC (Auto) 3 /hpf (3-5) 09/22/18 15:30 Urine RBC (Auto) 1 /hpf (0-3) 09/22/18 15:30 Ur Epithelial Cells Rare /HPF (FEW) 09/22/18 15:30 Urine Bacteria Rare /hpf (NONE SEEN) 09/22/18 15:30 Urine Mucus Few 09/22/18 15:30 additional labs pending Aox3 no distress, anxious no adventitious breath sounds full ROM ambulatory Assessment: 09/23/18 10:56 withdrawal sx Plan: increase fluids continue detox continue to monitor
[2018-09-23 11:26] LABS: HEMATOCRIT 40.8 % (35.4-49); MCH 29.7 pg (25.7-33.7); MEAN CELL VOLUME 92.9 fl (80-96); MEAN PLT VOLUME 10.1 fl (7.5-11.1); PLATELET COUNT 137 K/MM3 (134-434); RBC 4.39 M/mm3 (4.00-5.60); RDW 14.8 % (11.9-15.9); WHITE BLOOD COUNT 5.9 K/mm3 (4.0-10.0)
[2018-09-23 11:27] LABS: ALBUMIN 3.2 g/dl (3.4-5.0); ALK PHOS 241 U/L (45-117); ANION GAP 9 MMOL/L (8-16); BILIRUBIN,TOTAL 2.7 mg/dL (0.2-1); BLOOD UREA NITROGEN 13 mg/dL (7-18); CALCIUM 8.5 mg/dL (8.5-10.1); CHLORIDE 98 mmol/L (98-107); CO2 28 mmol/L (21-32); GLUCOSE,RANDOM 179 mg/dL (74-106); POTASSIUM 3.9 mmol/L (3.5-5.1); SGOT/AST 98 U/L (15-37); SGPT/ALT 83 U/L (13-61); SODIUM 135 mmol/L (136-145); TOT PROT 7.4 g/dl (6.4-8.2)
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
[2018-09-23] MEDS: risperiDONE 0.5 MG TABLET (FP) PO SCH (22:37)
[2018-09-23] MEDS: THIAMINE HCL 100 MG TABLET (FP) PO SCH (22:37)
[2018-09-23] MEDS: INSULIN SLIDING SCALE (NOVOLOG) 1 VIAL SQ SCH (22:38)
[2018-09-23] MEDS: MIRTAZAPINE 15 MG TABLET (FP) PO SCH (22:38)
[2018-09-23] MEDS ORDERED: INSULIN SLIDING SCALE (NOVOLOG) 1 VIAL SQ ONE (22:40)
[2018-09-24] MEDS: chlordiazePOXIDE HCL 25 MG CAPSULE PO SCH ×3 (06:00→10:38)
[2018-09-24] MEDS: metFORMIN HCL 500 MG TABLET (FP) PO SCH (06:06)
[2018-09-24] MEDS: PRENATAL VITAMINS W/ FOLIC ACID TABLET (FP) PO SCH (10:35)
[2018-09-24] MEDS: amLODIPine BESYLATE 10 MG TABLET (FP) PO SCH (10:35)
[2018-09-24] MEDS: NICOTINE 21 MG/24 HOURS TOPICAL PATCH TD SCH (10:37)
--- NOTE | 2018-09-24 14:07 | PN ---
[facility] CIWA - CIWA Score Nausea/Vomitin-Mild Nausea/No Vomiting Muscle Tremors: 2 Anxiety: 4-Mod. Anxious/Guarded Agitation: 4-Moderately Restless Paroxysmal Sweats: 3 Orientation: 0-Oriented Tacttile Disturbances: 1-Very Mild Itch/Numbness Auditory Disturbances: 0-None Visual Disturbances: 0-None Headache: 0-None Present CIWA-Ar Total Score: 15 S Progress Note (SOAP) Subjective: Patient denies any withdrawal sxs; patient is anxious, restless Objective: 09/24/18 14:03 Last Vital Signs Temp Pulse Resp BP Pulse Ox 96.2 F L 100 H 18 129/84 09/24/18 09:51 09/24/18 09:51 09/24/18 09:51 09/24/18 09:51 Laboratory Tests 09/22/18 09/22/18 09/22/18 11:29 15:30 16:11 WBC RBC Hgb Hct MCV MCH MCHC RDW Plt Count MPV Sodium Potassium Chloride Carbon Dioxide Anion Gap BUN Creatinine Creat Clearance w eGFR POC Glucometer 293 163 Random Glucose Calcium Total Bilirubin AST ALT Alkaline Phosphatase Total Protein Albumin Urine Color Rosario Urine Appearance Clear Urine pH 5.0 D Ur Specific [place] 1.025 Urine Protein 1+ H Urine Glucose (UA) 3+ H Urine Ketones Negative Urine Blood Negative Urine Nitrite Negative Urine Bilirubin Negative Urine Urobilinogen 4.0 e.u/dl Ur Leukocyte Esterase Negative Urine WBC (Auto) 3 Urine RBC (Auto) 1 Ur Epithelial Cells Rare Urine Bacteria Rare Urine Mucus Few RPR Titer 09/23/18 09/23/18 09/23/18 06:14 07:30 07:30 WBC 5.9 RBC 4.39 Hgb 13.0 Hct 40.8 D MCV 92.9 MCH 29.7 MCHC 32.0 RDW 14.8 Plt Count 137 D MPV 10.1 Sodium 135 L Potassium 3.9 Chloride 98 Carbon Dioxide 28 Anion Gap 9 BUN 13 Creatinine 1.0 Creat Clearance w eGFR > 60 POC Glucometer 188 Random Glucose 179 H Calcium 8.5 Total Bilirubin 2.7 H AST 98 H ALT 83 H Alkaline Phosphatase 241 H Total Protein 7.4 Albumin 3.2 L Urine Color Urine Appearance Urine pH Ur Specific [place] Urine Protein Urine Glucose (UA) Urine Ketones Urine Blood Urine Nitrite Urine Bilirubin Urine Urobilinogen Ur Leukocyte Esterase Urine WBC (Auto) Urine RBC (Auto) Ur Epithelial Cells Urine Bacteria Urine Mucus RPR Titer 09/23/18 09/23/18 09/23/18 07:30 16:11 21:34 WBC RBC Hgb Hct MCV MCH MCHC RDW Plt Count MPV Sodium Potassium Chloride Carbon Dioxide Anion Gap BUN Creatinine Creat Clearance w eGFR POC Glucometer 208 197 Random Glucose Calcium Total Bilirubin AST ALT Alkaline Phosphatase Total Protein Albumin Urine Color Urine Appearance Urine pH Ur Specific [place] Urine Protein Urine Glucose (UA) Urine Ketones Urine Blood Urine Nitrite Urine Bilirubin Urine Urobilinogen Ur Leukocyte Esterase Urine WBC (Auto) Urine RBC (Auto) Ur Epithelial Cells Urine Bacteria Urine Mucus RPR Titer Nonreactive 09/24/18 09/24/18 06:07 11:31 WBC RBC Hgb Hct MCV MCH MCHC RDW Plt Count MPV Sodium Potassium Chloride Carbon Dioxide Anion Gap BUN Creatinine Creat Clearance w eGFR POC Glucometer 220 367 Random Glucose Calcium Total Bilirubin AST ALT Alkaline Phosphatase Total Protein Albumin Urine Color Urine Appearance Urine pH Ur Specific [place] Urine Protein Urine Glucose (UA) Urine Ketones Urine Blood Urine Nitrite Urine Bilirubin Urine Urobilinogen Ur Leukocyte Esterase Urine WBC (Auto) Urine RBC (Auto) Ur Epithelial Cells Urine Bacteria Urine Mucus RPR Titer Labs reviewed: increased glucose, increased LFTs, abnormal UA Assessment: 09/24/18 14:07 Withdrawal sxs Noted with hyperglycemia, elevated LFTs and abnormal UA Plan: Continue detox Hyperglycemia due to DMT2: start insulin sliding scale coverage, continue finger stick, continue metformin and increase dose if warranted Elevated LFTs: repeat AST, ALT, alk phos and total bilirubin Abnormal UA: encouraged PO water intake, repeat UA
[2018-09-24] MEDS: chlordiazePOXIDE 5 MG CAPSULE PO SCH ×2 (17:16→22:24)
[2018-09-24] MEDS: INSULIN SLIDING SCALE (NOVOLOG) 1 VIAL SQ SCH (17:16)
[2018-09-24] MEDS: risperiDONE 0.5 MG TABLET (FP) PO SCH (22:24)
[2018-09-24] MEDS: THIAMINE HCL 100 MG TABLET (FP) PO SCH (22:24)
[2018-09-24] MEDS: MIRTAZAPINE 15 MG TABLET (FP) PO SCH (22:25)
[2018-09-25] MEDS: chlordiazePOXIDE 5 MG CAPSULE PO SCH ×2 (07:00→10:22)
[2018-09-25] MEDS: metFORMIN HCL 500 MG TABLET (FP) PO SCH (07:00)
[2018-09-25] MEDS: INSULIN SLIDING SCALE (NOVOLOG) 1 VIAL SQ SCH ×3 (07:01→17:59)
[2018-09-25] MEDS: PRENATAL VITAMINS W/ FOLIC ACID TABLET (FP) PO SCH (10:22)
[2018-09-25] MEDS: NICOTINE 21 MG/24 HOURS TOPICAL PATCH TD SCH (10:24)
[2018-09-25 10:36] LABS: BILIRUBIN,TOTAL 0.8 mg/dL (0.2-1)
[2018-09-25] MEDS: amLODIPine BESYLATE 10 MG TABLET (FP) PO SCH (10:45)
[2018-09-25 14:14] LABS: URINE APPEARANCE CLEAR; URINE BILIRUBIN NEGATIVE (<2.0 mg/dL); URINE COLOR AMBER; URINE GLUCOSE (UA) 3+ (NEGATIVE); URINE KETONE NEGATIVE (NEGATIVE); URINE LEUK ESTERASE NEGATIVE (NEGATIVE); URINE NITRITE NEGATIVE (NEGATIVE); URINE PROTEIN NEGATIVE (NEGATIVE); URINE UROBILINOGEN 4.0 E.U/dl mg/dL (0.2-1.0)
[2018-09-25] MEDS: chlordiazePOXIDE HCL 10 MG CAPSULE PO SCH ×2 (17:58→22:36)
--- NOTE | 2018-09-25 18:50 | PN ---
[facility] Progress Note (SOAP) Subjective: offers no complaints Objective: 09/25/18 18:49 A & O x 3 gait steady anxious Vital Signs Temperature 97.6 F 09/25/18 18:08 Pulse Rate 102 H 09/25/18 18:08 Respiratory Rate 18 09/25/18 18:08 Blood Pressure 123/77 09/25/18 18:08 O2 Sat by Pulse Oximetry (%) Assessment: 09/25/18 18:49 withdrawal sx Anxiety Plan: continue detox For d/c in a.m
[2018-09-25] MEDS ORDERED: cloNIDine HCL 0.1 MG TABLET PO ONE (21:07)
[2018-09-25] MEDS: THIAMINE HCL 100 MG TABLET (FP) PO SCH (22:36)
[2018-09-25] MEDS: MIRTAZAPINE 15 MG TABLET (FP) PO SCH (22:36)
[2018-09-25] MEDS: risperiDONE 0.5 MG TABLET (FP) PO SCH (22:37)
[2018-09-25] MEDS ORDERED: RANITIDINE HCL 150 MG TABLET (FP) PO ONE (22:56)
--- NOTE | 2018-09-25 22:59 | PN ---
[facility] Progress Note Note: S: C/o burning sensation in stomach and states has acid reflux. States no relief from maalox and requesting Zantac. Denies headache or weakness. O: A&Ox3. Vital Signs 09/25/18 09/25/18 09/25/18 18:08 21:04 22:11 Temperature 97.6 F 98.3 F 98.3 F Pulse Rate 102 H 108 H 106 H Respiratory 18 18 Rate Blood Pressure 123/77 157/100 156/100 Received CloNidine at 22:37. Lab Results WBC 5.9 K/mm3 (4.0-10.0) 09/23/18 07:30 RBC 4.39 M/mm3 (4.00-5.60) 09/23/18 07:30 Hgb 13.0 GM/dL (11.7-16.9) 09/23/18 07:30 Hct 40.8 % (35.4-49) D 09/23/18 07:30 MCV 92.9 fl (80-96) 09/23/18 07:30 MCHC 32.0 g/dl (32.0-35.9) 09/23/18 07:30 RDW 14.8 % (11.9-15.9) 09/23/18 07:30 Plt Count 137 K/MM3 (134-434) D 09/23/18 07:30 Sodium 135 mmol/L (136-145) L 09/23/18 07:30 Potassium 3.9 mmol/L (3.5-5.1) 09/23/18 07:30 Chloride 98 mmol/L (98-107) 09/23/18 07:30 Carbon Dioxide 28 mmol/L (21-32) 09/23/18 07:30 Anion Gap 9 MMOL/L (8-16) 09/23/18 07:30 BUN 13 mg/dL (7-18) 09/23/18 07:30 Creatinine 1.0 mg/dL (0.55-1.3) 09/23/18 07:30 Random Glucose 179 mg/dL (74-106) H 09/23/18 07:30 Calcium 8.5 mg/dL (8.5-10.1) 09/23/18 07:30 Labs reviewed. Assessment: Resolving alcohol withdrawal Acid Reflux Uncontrolled hypertension Plan: Zantac 150 mg PO once now. Continue alcohol detox Monitor B/P.
[2018-09-26 06:33] VITALS: BP 118/74; PULSE 94; TEMP 97.5
[2018-09-26] MEDS: chlordiazePOXIDE HCL 10 MG CAPSULE PO SCH ×2 (06:46→10:21)
[2018-09-26] MEDS: metFORMIN HCL 500 MG TABLET (FP) PO SCH (07:36)
[2018-09-26] MEDS ORDERED: INSULIN SLIDING SCALE (NOVOLOG) 1 VIAL SQ ONE (07:45)
[2018-09-26] MEDS: INSULIN SLIDING SCALE (NOVOLOG) 1 VIAL SQ SCH ×2 (07:51→11:29)
[2018-09-26] MEDS: NICOTINE 21 MG/24 HOURS TOPICAL PATCH TD SCH (10:16)
[2018-09-26] MEDS: PRENATAL VITAMINS W/ FOLIC ACID TABLET (FP) PO SCH (10:17)
[2018-09-26] MEDS: amLODIPine BESYLATE 10 MG TABLET (FP) PO SCH (10:20)
--- NOTE | 2018-09-26 13:08 | DS ---
[facility] Detox Discharge Summary Admission Date: 09/22/18 Discharge Date: 09/26/18 - History Present History: Alcohol Dependence - Physical Exam Results Vital Signs: Vital Signs Temperature 97.5 F L 09/26/18 06:33 Pulse Rate 94 H 09/26/18 06:33 Respiratory Rate 18 09/26/18 06:33 Blood Pressure 118/74 09/26/18 06:33 O2 Sat by Pulse Oximetry (%) Pertinent Admission Physical Exam Findings: PATIENT TOLERATED DETOX WITHOUT ADVERSE EVENT. PATIENT TO FOLLOW UP TOMORROW MORNING WITH [facility] FOR REHAB. PATIENT ENCOURAGED TO COMPLETE REHAB TO PREVENT RELAPSE AND TO SEEK MEDICAL ATTENTION IF WITHDRAWAL SYMPTOMS OCCUR. D/C INSTRUCTIONS PROVIDED TO PATIENT BY STAFF. PATIENT DENIES SI/HI AND D/C CLINICALLY STABLE. - Treatment Hospital Course: Detox Protocol Followed, Detoxed Safely, Responded well, Discharged Condition Good - Medication Discharge Medications: Ambulatory Orders Amlodipine Besylate [Norvasc -] 10 mg PO DAILY #30 tablet 01/06/18 Aripiprazole [Abilify -] 2 mg PO DAILY #30 tablet 01/09/18 Mirtazapine [Remeron -] 7.5 mg PO HS #30 tablet 01/09/18 Risperidone [Risperdal -] 0.5 mg PO HS 09/22/18 metFORMIN HCL [Metformin HCl] 500 mg PO DAILY 09/22/18 - AMA Did Patient Leave Against Medical Advice: No
== END 2018-09-26 12:59 | disposition other institution (70) | DRG 774 ==
LOC: YASAS 10:44 → Y3N 12:04
PROC: HZ2ZZZZ Detoxification Services for Substance Abuse Treatment (ICD-10-PCS; principal; 2018-09-22)
DX: F10.230 Alcohol dependence with withdrawal, uncomplicated (principal); F14.20 Cocaine dependence, uncomplicated; F17.213 Nicotine dependence, cigarettes, with withdrawal; F31.81 Bipolar II disorder; F19.24 Other psychoactive substance dependence with psychoactive substance-induced mood disorder; F41.9 Anxiety disorder, unspecified; I10 Essential (primary) hypertension; K21.9 Gastro-esophageal reflux disease without esophagitis; E11.65 Type 2 diabetes mellitus with hyperglycemia; E11.8 Type 2 diabetes mellitus with unspecified complications; G47.00 Insomnia, unspecified; J45.909 Unspecified asthma, uncomplicated; B18.2 Chronic viral hepatitis C; R94.5 Abnormal results of liver function studies; R82.90 Unspecified abnormal findings in urine; Z79.4 Long term (current) use of insulin; Z91.14 Patient's other noncompliance with medication regimen; Z87.438 Personal history of other diseases of male genital organs
CPT/HCPCS: 36415; 80053; 81003; 81015; 82247; 82962; 84075; 84450; 84460; 85027; 86593; 93005; 93010; J0735

== ENCOUNTER 2018-09-26 16:22 | Inpatient (IN) | payer OTHER ==
[2018-09-26 20:14] VITALS: BMI 22.3
--- NOTE | 2018-09-26 21:22 | HP ---
[facility] Re[facility] Assess/Revision - Admission History Admitted to Rehab from: [facility] - Vital signs Vital Signs: Vital Signs Period Temp Pulse Resp BP Sys/Muse Pulse Ox Last 24 Hr 97.0 F 103 18 152/93 - Findings Detox History & Physical reviewed: Yes Concur with findings: Yes Inpatient Rehab Admission - Initial Determination Are CD services needed?: Yes Free of communicable disease: Yes Not in need of hospitalization: Yes - Rehab Admission Criteria Previous failed treatment: Yes Poor recovery environment: Yes Comorbidities: Yes Lacks judgement: No Patient is meeting Inpatient Rehab admission criteria:: Yes ( )
[2018-09-26] MEDS ORDERED: P-EPHED 60MG/TRIPROLIDI 2.5MG TABLET PO PRN (21:24)
[2018-09-26] MEDS ORDERED: LOPERAMIDE HCL 2 MG CAPSULE PO PRN (21:24)
[2018-09-26] MEDS ORDERED: ACETAMINOPHEN 325 MG TABLET (FP) PO PRN (21:24)
[2018-09-26] MEDS ORDERED: guaiFENesin/D-METHORPHAN HB 10 ML UNIT-DOSE CUPS PO PRN (21:24)
[2018-09-26] MEDS ORDERED: MAGNESIUM CITRATE 300 ML BOTTLE PO PRN (21:24)
[2018-09-26] MEDS ORDERED: MENTHOL/PHENOL 1 EACH UD MM PRN (21:24)
[2018-09-26] MEDS ORDERED: IBUPROFEN 400 MG TABLET (FP) PO PRN (21:24)
[2018-09-26] MEDS ORDERED: MAGNESIUM HYDROX 2400MG/30ML ORAL SUSPENSION 30 ML CUP PO PRN (21:24)
[2018-09-26] MEDS ORDERED: MELATONIN 5 MG TABLETS PO PRN (22:00)
[2018-09-26] MEDS: THIAMINE HCL 100 MG TABLET (FP) PO SCH (23:22)
[2018-09-26] MEDS: hydrOXYzine PAMOATE 50 MG CAPSULE (FP) PO PRN (23:22)
[2018-09-26] MEDS: risperiDONE 1 MG TABLET (FP) PO SCH (23:59)
[2018-09-26] MEDS: MIRTAZAPINE 15 MG TABLET (FP) PO SCH (23:59)
[2018-09-27] MEDS: metFORMIN HCL 500 MG TABLET (FP) PO SCH (06:55)
[2018-09-27] MEDS: amLODIPine BESYLATE 5 MG TABLET (FP) PO SCH (09:38)
[2018-09-27] MEDS: NICOTINE 14 MG/24 HOURS TOPICAL PATCH TD SCH (09:39)
[2018-09-27] MEDS: PRENATAL VITAMINS W/ FOLIC ACID TABLET (FP) PO SCH (09:39)
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
--- NOTE | 2018-09-27 13:52 | PN ---
[facility] Progress Note Note: PT C/O CHRONIC ITCHY RASH ON RIGHT ANKLE THAT COMES AND GOES. LEFT ANKLE;DRY AND SCALY DARK DISCOLORATION OF SKIN. PLAN;HYDROCORTISONE OINTMENT 15 APPLY TO AFFECTED AREA BID
[2018-09-27] MEDS: HYDROCORTISONE 1% TOPICAL OINT 30 GM TUBE TP SCH ×2 (14:29→21:08)
[2018-09-27] MEDS: THIAMINE HCL 100 MG TABLET (FP) PO SCH (21:07)
[2018-09-27] MEDS: MIRTAZAPINE 15 MG TABLET (FP) PO SCH (21:08)
[2018-09-27] MEDS: risperiDONE 1 MG TABLET (FP) PO SCH (21:09)
[2018-09-28] MEDS: metFORMIN HCL 500 MG TABLET (FP) PO SCH (06:41)
[2018-09-28] MEDS ORDERED: INSULIN (NOVOLOG) ASPART 100 UNITS/ML 10ML VIAL ONE (06:45)
[2018-09-28] MEDS: INSULIN SLIDING SCALE (NOVOLOG) 1 VIAL SQ SCH (07:36)
[2018-09-28] MEDS: PRENATAL VITAMINS W/ FOLIC ACID TABLET (FP) PO SCH (10:12)
[2018-09-28] MEDS: amLODIPine BESYLATE 5 MG TABLET (FP) PO SCH (10:12)
[2018-09-28] MEDS: NICOTINE 14 MG/24 HOURS TOPICAL PATCH TD SCH (10:13)
[2018-09-28] MEDS: HYDROCORTISONE 1% TOPICAL OINT 30 GM TUBE TP SCH ×2 (10:13→21:08)
[2018-09-28] MEDS: risperiDONE 1 MG TABLET (FP) PO SCH (21:07)
[2018-09-28] MEDS: MIRTAZAPINE 15 MG TABLET (FP) PO SCH (21:08)
[2018-09-28] MEDS: THIAMINE HCL 100 MG TABLET (FP) PO SCH (21:08)
[2018-09-29] MEDS: metFORMIN HCL 500 MG TABLET (FP) PO SCH (06:16)
[2018-09-29] MEDS ORDERED: INSULIN (NOVOLOG) ASPART 100 UNITS/ML 10ML VIAL ONE (06:19)
[2018-09-29] MEDS: MAG HYDROX/AL HYDROX/SIMETH 30 ML UNIT-DOSE CUP PO PRN (06:21)
[2018-09-29] MEDS: INSULIN SLIDING SCALE (NOVOLOG) 1 VIAL SQ SCH (07:01)
[2018-09-29] MEDS: amLODIPine BESYLATE 5 MG TABLET (FP) PO SCH (10:07)
[2018-09-29] MEDS: PRENATAL VITAMINS W/ FOLIC ACID TABLET (FP) PO SCH (10:07)
[2018-09-29] MEDS: HYDROCORTISONE 1% TOPICAL OINT 30 GM TUBE TP SCH ×2 (10:08→21:08)
[2018-09-29] MEDS: NICOTINE 14 MG/24 HOURS TOPICAL PATCH TD SCH (10:08)
[2018-09-29] MEDS: THIAMINE HCL 100 MG TABLET (FP) PO SCH (21:05)
[2018-09-29] MEDS: MIRTAZAPINE 15 MG TABLET (FP) PO SCH (21:05)
[2018-09-29] MEDS: risperiDONE 0.5 MG TABLET (FP) PO SCH (21:08)
[2018-09-30] MEDS: metFORMIN HCL 500 MG TABLET (FP) PO SCH (06:47)
[2018-09-30] MEDS ORDERED: INSULIN (NOVOLOG) ASPART 100 UNITS/ML 10ML VIAL ONE (06:50)
[2018-09-30] MEDS: INSULIN SLIDING SCALE (NOVOLOG) 1 VIAL SQ SCH (07:00)
[2018-09-30] MEDS: NICOTINE 14 MG/24 HOURS TOPICAL PATCH TD SCH (09:28)
[2018-09-30] MEDS: amLODIPine BESYLATE 5 MG TABLET (FP) PO SCH (09:28)
[2018-09-30] MEDS: HYDROCORTISONE 1% TOPICAL OINT 30 GM TUBE TP SCH ×2 (09:28→21:03)
[2018-09-30] MEDS: PRENATAL VITAMINS W/ FOLIC ACID TABLET (FP) PO SCH (09:28)
[2018-09-30] MEDS: RANITIDINE HCL 150 MG TABLET (FP) PO SCH (09:28)
[2018-09-30] MEDS: risperiDONE 0.5 MG TABLET (FP) PO SCH (21:02)
[2018-09-30] MEDS: THIAMINE HCL 100 MG TABLET (FP) PO SCH (21:02)
[2018-09-30] MEDS: MIRTAZAPINE 15 MG TABLET (FP) PO SCH (21:03)
[2018-10-01] MEDS: MAG HYDROX/AL HYDROX/SIMETH 30 ML UNIT-DOSE CUP PO PRN (03:13)
[2018-10-01] MEDS: metFORMIN HCL 500 MG TABLET (FP) PO SCH (06:25)
[2018-10-01] MEDS ORDERED: INSULIN (NOVOLOG) ASPART 100 UNITS/ML 10ML VIAL ONE (06:56)
[2018-10-01] MEDS: INSULIN SLIDING SCALE (NOVOLOG) 1 VIAL SQ SCH (07:33)
[2018-10-01] MEDS: NICOTINE 14 MG/24 HOURS TOPICAL PATCH TD SCH (09:28)
[2018-10-01] MEDS: amLODIPine BESYLATE 5 MG TABLET (FP) PO SCH (09:28)
[2018-10-01] MEDS: PRENATAL VITAMINS W/ FOLIC ACID TABLET (FP) PO SCH (09:28)
[2018-10-01] MEDS: RANITIDINE HCL 150 MG TABLET (FP) PO SCH (09:28)
[2018-10-01] MEDS: HYDROCORTISONE 1% TOPICAL OINT 30 GM TUBE TP SCH ×2 (09:29→21:06)
[2018-10-01] MEDS: THIAMINE HCL 100 MG TABLET (FP) PO SCH (21:04)
[2018-10-01] MEDS: MIRTAZAPINE 15 MG TABLET (FP) PO SCH (21:05)
[2018-10-01] MEDS: risperiDONE 0.5 MG TABLET (FP) PO SCH (21:05)
[2018-10-02] MEDS: metFORMIN HCL 500 MG TABLET (FP) PO SCH (06:23)
[2018-10-02] MEDS: INSULIN SLIDING SCALE (NOVOLOG) 1 VIAL SQ SCH (06:26)
[2018-10-02] MEDS ORDERED: INSULIN (NOVOLOG) ASPART 100 UNITS/ML 10ML VIAL ONE (06:26)
[2018-10-02] MEDS: PRENATAL VITAMINS W/ FOLIC ACID TABLET (FP) PO SCH (10:34)
[2018-10-02] MEDS: amLODIPine BESYLATE 5 MG TABLET (FP) PO SCH (10:34)
[2018-10-02] MEDS: RANITIDINE HCL 150 MG TABLET (FP) PO SCH (10:34)
[2018-10-02] MEDS: NICOTINE 14 MG/24 HOURS TOPICAL PATCH TD SCH (10:35)
[2018-10-02] MEDS: HYDROCORTISONE 1% TOPICAL OINT 30 GM TUBE TP SCH ×2 (10:37→21:08)
[2018-10-02] MEDS: MIRTAZAPINE 15 MG TABLET (FP) PO SCH (21:07)
[2018-10-02] MEDS: THIAMINE HCL 100 MG TABLET (FP) PO SCH (21:08)
[2018-10-02] MEDS: risperiDONE 0.5 MG TABLET (FP) PO SCH (21:08)
[2018-10-03] MEDS: MAG HYDROX/AL HYDROX/SIMETH 30 ML UNIT-DOSE CUP PO PRN (02:56)
[2018-10-03] MEDS: metFORMIN HCL 500 MG TABLET (FP) PO SCH (06:20)
[2018-10-03] MEDS: INSULIN SLIDING SCALE (NOVOLOG) 1 VIAL SQ SCH (07:47)
[2018-10-03] MEDS: NICOTINE 14 MG/24 HOURS TOPICAL PATCH TD SCH (10:13)
[2018-10-03] MEDS: HYDROCORTISONE 1% TOPICAL OINT 30 GM TUBE TP SCH ×2 (10:13→22:30)
[2018-10-03] MEDS: RANITIDINE HCL 150 MG TABLET (FP) PO SCH (10:13)
[2018-10-03] MEDS: amLODIPine BESYLATE 5 MG TABLET (FP) PO SCH (10:13)
[2018-10-03] MEDS: PRENATAL VITAMINS W/ FOLIC ACID TABLET (FP) PO SCH (10:13)
--- NOTE | 2018-10-03 17:11 | PN ---
S Progress Note Note: Psychiatric nurse practitoner note: Patient reports poor sleep. Will increase melatonin to 8mg. Verbal consent given.
[2018-10-03] MEDS: risperiDONE 0.5 MG TABLET (FP) PO SCH (21:07)
[2018-10-03] MEDS: MIRTAZAPINE 15 MG TABLET (FP) PO SCH (21:07)
[2018-10-03] MEDS: THIAMINE HCL 100 MG TABLET (FP) PO SCH (21:07)
[2018-10-03] MEDS ORDERED: MELATONIN 5 MG TABLETS PO PRN (22:00)
[2018-10-03] MEDS: MELATONIN 5 MG, MELATONIN 3 MG PO PRN (22:59)
[2018-10-04] MEDS ORDERED: INSULIN (NOVOLOG) ASPART 100 UNITS/ML 10ML VIAL ONE ×5 (00:14→21:04)
[2018-10-04] MEDS: INSULIN SLIDING SCALE (NOVOLOG) 1 VIAL SQ SCH ×5 (00:15→21:00)
[2018-10-04] MEDS: metFORMIN HCL 500 MG TABLET (FP) PO SCH (06:30)
[2018-10-04] MEDS ORDERED: INSULIN SLIDING SCALE (NOVOLOG) 1 VIAL SQ SCH (07:00)
[2018-10-04] MEDS: RANITIDINE HCL 150 MG TABLET (FP) PO SCH (09:53)
[2018-10-04] MEDS: PRENATAL VITAMINS W/ FOLIC ACID TABLET (FP) PO SCH (09:53)
[2018-10-04] MEDS: amLODIPine BESYLATE 5 MG TABLET (FP) PO SCH (09:53)
[2018-10-04] MEDS: HYDROCORTISONE 1% TOPICAL OINT 30 GM TUBE TP SCH ×2 (09:53→22:18)
[2018-10-04] MEDS: NICOTINE 14 MG/24 HOURS TOPICAL PATCH TD SCH (09:55)
[2018-10-04] MEDS: MELATONIN 5 MG, MELATONIN 3 MG PO PRN (20:58)
[2018-10-04] MEDS: risperiDONE 0.5 MG TABLET (FP) PO SCH (21:02)
[2018-10-04] MEDS: MIRTAZAPINE 15 MG TABLET (FP) PO SCH (21:04)
[2018-10-04] MEDS: THIAMINE HCL 100 MG TABLET (FP) PO SCH (21:06)
[2018-10-05] MEDS ORDERED: INSULIN (NOVOLOG) ASPART 100 UNITS/ML 10ML VIAL ONE ×3 (06:58→16:41)
[2018-10-05] MEDS: metFORMIN HCL 500 MG TABLET (FP) PO SCH (07:23)
[2018-10-05] MEDS: INSULIN SLIDING SCALE (NOVOLOG) 1 VIAL SQ SCH ×4 (07:23→21:03)
[2018-10-05] MEDS: NICOTINE 14 MG/24 HOURS TOPICAL PATCH TD SCH (09:46)
[2018-10-05] MEDS: RANITIDINE HCL 150 MG TABLET (FP) PO SCH (09:46)
[2018-10-05] MEDS: amLODIPine BESYLATE 5 MG TABLET (FP) PO SCH (09:46)
[2018-10-05] MEDS: PRENATAL VITAMINS W/ FOLIC ACID TABLET (FP) PO SCH (09:46)
[2018-10-05] MEDS: HYDROCORTISONE 1% TOPICAL OINT 30 GM TUBE TP SCH ×2 (09:47→21:04)
[2018-10-05] MEDS: risperiDONE 0.5 MG TABLET (FP) PO SCH (21:04)
[2018-10-05] MEDS: THIAMINE HCL 100 MG TABLET (FP) PO SCH (21:04)
[2018-10-05] MEDS: MIRTAZAPINE 15 MG TABLET (FP) PO SCH (21:04)
[2018-10-06] MEDS: metFORMIN HCL 500 MG TABLET (FP) PO SCH (06:19)
[2018-10-06] MEDS ORDERED: INSULIN (NOVOLOG) ASPART 100 UNITS/ML 10ML VIAL ONE ×3 (06:20→16:46)
[2018-10-06] MEDS: INSULIN SLIDING SCALE (NOVOLOG) 1 VIAL SQ SCH ×4 (06:21→21:06)
[2018-10-06] MEDS: RANITIDINE HCL 150 MG TABLET (FP) PO SCH (09:32)
[2018-10-06] MEDS: amLODIPine BESYLATE 5 MG TABLET (FP) PO SCH (09:32)
[2018-10-06] MEDS: PRENATAL VITAMINS W/ FOLIC ACID TABLET (FP) PO SCH (09:32)
[2018-10-06] MEDS: HYDROCORTISONE 1% TOPICAL OINT 30 GM TUBE TP SCH ×2 (09:33→22:22)
[2018-10-06] MEDS: NICOTINE POLACRILEX 2 MG GUM BUC PRN (09:33)
[2018-10-06] MEDS: NICOTINE 14 MG/24 HOURS TOPICAL PATCH TD SCH (09:33)
[2018-10-06] MEDS: MIRTAZAPINE 15 MG TABLET (FP) PO SCH (21:04)
[2018-10-06] MEDS: THIAMINE HCL 100 MG TABLET (FP) PO SCH (21:05)
[2018-10-06] MEDS: risperiDONE 0.5 MG TABLET (FP) PO SCH (21:05)
[2018-10-06] MEDS: MELATONIN 5 MG, MELATONIN 3 MG PO PRN (21:06)
[2018-10-07] MEDS ORDERED: INSULIN (NOVOLOG) ASPART 100 UNITS/ML 10ML VIAL ONE ×3 (03:07→16:59)
[2018-10-07] MEDS: metFORMIN HCL 500 MG TABLET (FP) PO SCH (06:19)
[2018-10-07] MEDS: INSULIN SLIDING SCALE (NOVOLOG) 1 VIAL SQ SCH ×4 (06:20→21:03)
[2018-10-07] MEDS: amLODIPine BESYLATE 5 MG TABLET (FP) PO SCH (09:34)
[2018-10-07] MEDS: RANITIDINE HCL 150 MG TABLET (FP) PO SCH (09:34)
[2018-10-07] MEDS: PRENATAL VITAMINS W/ FOLIC ACID TABLET (FP) PO SCH (09:34)
[2018-10-07] MEDS: HYDROCORTISONE 1% TOPICAL OINT 30 GM TUBE TP SCH ×2 (09:35→22:14)
[2018-10-07] MEDS: NICOTINE 14 MG/24 HOURS TOPICAL PATCH TD SCH (10:55)
[2018-10-07] MEDS: THIAMINE HCL 100 MG TABLET (FP) PO SCH (21:03)
[2018-10-07] MEDS: risperiDONE 0.5 MG TABLET (FP) PO SCH (21:04)
[2018-10-07] MEDS: MIRTAZAPINE 15 MG TABLET (FP) PO SCH (21:04)
[2018-10-07] MEDS: MELATONIN 5 MG, MELATONIN 3 MG PO PRN (21:06)
[2018-10-08] MEDS: metFORMIN HCL 500 MG TABLET (FP) PO SCH (06:27)
[2018-10-08] MEDS: INSULIN SLIDING SCALE (NOVOLOG) 1 VIAL SQ SCH ×4 (06:29→21:15)
[2018-10-08] MEDS ORDERED: INSULIN (NOVOLOG) ASPART 100 UNITS/ML 10ML VIAL ONE (06:59)
[2018-10-08] MEDS: RANITIDINE HCL 150 MG TABLET (FP) PO SCH (09:32)
[2018-10-08] MEDS: NICOTINE 14 MG/24 HOURS TOPICAL PATCH TD SCH (09:32)
[2018-10-08] MEDS: HYDROCORTISONE 1% TOPICAL OINT 30 GM TUBE TP SCH ×2 (09:32→22:37)
[2018-10-08] MEDS: amLODIPine BESYLATE 5 MG TABLET (FP) PO SCH (09:32)
[2018-10-08] MEDS: PRENATAL VITAMINS W/ FOLIC ACID TABLET (FP) PO SCH (09:33)
[2018-10-08] MEDS: risperiDONE 0.5 MG TABLET (FP) PO SCH (21:12)
[2018-10-08] MEDS: THIAMINE HCL 100 MG TABLET (FP) PO SCH (21:13)
[2018-10-08] MEDS: MIRTAZAPINE 15 MG TABLET (FP) PO SCH (21:13)
[2018-10-09] MEDS: metFORMIN HCL 500 MG TABLET (FP) PO SCH ×2 (06:24→16:21)
[2018-10-09] MEDS: INSULIN SLIDING SCALE (NOVOLOG) 1 VIAL SQ SCH ×4 (06:26→21:04)
[2018-10-09] MEDS: PRENATAL VITAMINS W/ FOLIC ACID TABLET (FP) PO SCH (10:03)
[2018-10-09] MEDS: amLODIPine BESYLATE 5 MG TABLET (FP) PO SCH (10:03)
[2018-10-09] MEDS: RANITIDINE HCL 150 MG TABLET (FP) PO SCH (10:03)
[2018-10-09] MEDS: HYDROCORTISONE 1% TOPICAL OINT 30 GM TUBE TP SCH ×2 (10:03→21:02)
[2018-10-09] MEDS: NICOTINE 14 MG/24 HOURS TOPICAL PATCH TD SCH (10:03)
--- NOTE | 2018-10-09 11:25 | PN ---
[facility] Progress Note Note: PT REQUESTING RE-EVALUATION OF DIABETIC MEDS. REPORTS HE WAS GETTING METFORMIN 500 MG ABOUT TWICE IN [facility] WHERE HE WAS STARTED THE MEDICATION. PT STATES HE IS ADHERING TO HIS DIET AND NOT SURE WHY HE IS STILL RUNNING HIGHER BS WITH INSULIN COVERAGE AND WANTS IT BID INSTEAD OF DAILY HE HAD EARLIER STATED ON ADMISSION. PT REPORTS HE HAS NO PRIMARY CARE DOCTOR AND WAS IN SNF FOR 6 MONTHS TILL August BUT WENT BACK TO DRINKING TOO MUCH BEFORE COMING IN TO DETOX/REHAB. Vital Signs 10/09/18 10/09/18 03:30 06:40 Temperature 98.9 F Pulse Rate 99 H Respiratory 18 18 Rate Blood Pressure 138/88 Laboratory Tests 09/26/18 09/27/18 09/28/18 20:17 06:52 06:40 POC Glucometer 305 381 294 09/29/18 09/30/18 10/01/18 06:16 06:46 06:26 POC Glucometer 382 261 389 10/02/18 10/03/18 10/03/18 06:23 06:19 17:48 POC Glucometer 287 287 380 10/03/18 10/04/18 10/04/18 22:27 06:29 10:48 POC Glucometer 402 178 333 10/04/18 10/04/18 10/05/18 17:03 20:47 06:13 POC Glucometer 363 364 230 10/05/18 10/05/18 10/05/18 11:49 16:38 20:54 POC Glucometer 291 413 315 10/06/18 10/06/18 10/06/18 06:18 11:53 16:45 POC Glucometer 248 327 366 10/06/18 10/07/18 10/07/18 20:29 06:18 12:05 POC Glucometer 309 310 340 10/07/18 10/07/18 10/08/18 16:39 20:28 06:26 POC Glucometer 316 303 256 10/08/18 10/08/18 10/08/18 11:47 16:44 21:08 POC Glucometer 267 287 342 10/09/18 06:24 POC Glucometer 260 NAD PLAN:METFORMIN 500 MG PO BID FOLLOW UP WITH A PRIMARY CARE PROVIDER AT [facility] OR [facility] AFTER DISCHARGE(PT REPORTS DISCHARGE PLAN TO [facility] IN [place], [place]).
[2018-10-09] MEDS ORDERED: INSULIN (NOVOLOG) ASPART 100 UNITS/ML 10ML VIAL ONE ×2 (12:21→16:20)
[2018-10-09] MEDS: MIRTAZAPINE 15 MG TABLET (FP) PO SCH (21:02)
[2018-10-09] MEDS: THIAMINE HCL 100 MG TABLET (FP) PO SCH (21:02)
[2018-10-09] MEDS: risperiDONE 0.5 MG TABLET (FP) PO SCH (21:02)
[2018-10-09] MEDS: hydrOXYzine PAMOATE 50 MG CAPSULE (FP) PO PRN (21:09)
[2018-10-10] MEDS: metFORMIN HCL 500 MG TABLET (FP) PO SCH ×2 (06:18→17:04)
[2018-10-10] MEDS: INSULIN SLIDING SCALE (NOVOLOG) 1 VIAL SQ SCH ×4 (06:19→21:12)
[2018-10-10] MEDS: NICOTINE 14 MG/24 HOURS TOPICAL PATCH TD SCH (10:00)
[2018-10-10] MEDS: RANITIDINE HCL 150 MG TABLET (FP) PO SCH (10:00)
[2018-10-10] MEDS: amLODIPine BESYLATE 5 MG TABLET (FP) PO SCH (10:00)
[2018-10-10] MEDS: PRENATAL VITAMINS W/ FOLIC ACID TABLET (FP) PO SCH (10:00)
[2018-10-10] MEDS: NICOTINE POLACRILEX 2 MG GUM BUC PRN (10:00)
[2018-10-10] MEDS: HYDROCORTISONE 1% TOPICAL OINT 30 GM TUBE TP SCH ×2 (10:01→21:13)
[2018-10-10] MEDS ORDERED: INSULIN (NOVOLOG) ASPART 100 UNITS/ML 10ML VIAL ONE ×2 (12:00→22:08)
[2018-10-10] MEDS: THIAMINE HCL 100 MG TABLET (FP) PO SCH (21:14)
[2018-10-10] MEDS: risperiDONE 0.5 MG TABLET (FP) PO SCH (21:14)
[2018-10-10] MEDS: MIRTAZAPINE 15 MG TABLET (FP) PO SCH (21:14)
[2018-10-11] MEDS: metFORMIN HCL 500 MG TABLET (FP) PO SCH ×2 (06:25→16:50)
[2018-10-11] MEDS: INSULIN SLIDING SCALE (NOVOLOG) 1 VIAL SQ SCH ×4 (06:25→21:13)
[2018-10-11] MEDS: amLODIPine BESYLATE 5 MG TABLET (FP) PO SCH (09:38)
[2018-10-11] MEDS: PRENATAL VITAMINS W/ FOLIC ACID TABLET (FP) PO SCH (09:38)
[2018-10-11] MEDS: RANITIDINE HCL 150 MG TABLET (FP) PO SCH (09:38)
[2018-10-11] MEDS: HYDROCORTISONE 1% TOPICAL OINT 30 GM TUBE TP SCH ×2 (09:39→21:15)
[2018-10-11] MEDS: NICOTINE 14 MG/24 HOURS TOPICAL PATCH TD SCH (09:39)
[2018-10-11] MEDS ORDERED: INSULIN (NOVOLOG) ASPART 100 UNITS/ML 10ML VIAL ONE (11:55)
[2018-10-11] MEDS: MIRTAZAPINE 15 MG TABLET (FP) PO SCH (21:11)
[2018-10-11] MEDS: THIAMINE HCL 100 MG TABLET (FP) PO SCH (21:11)
[2018-10-11] MEDS: MELATONIN 5 MG, MELATONIN 3 MG PO PRN (21:12)
[2018-10-11] MEDS: risperiDONE 0.5 MG TABLET (FP) PO SCH (21:12)
[2018-10-12] MEDS: metFORMIN HCL 500 MG TABLET (FP) PO SCH ×2 (06:13→16:48)
[2018-10-12] MEDS: INSULIN SLIDING SCALE (NOVOLOG) 1 VIAL SQ SCH ×4 (07:21→21:06)
[2018-10-12] MEDS: PRENATAL VITAMINS W/ FOLIC ACID TABLET (FP) PO SCH (10:11)
[2018-10-12] MEDS: RANITIDINE HCL 150 MG TABLET (FP) PO SCH (10:11)
[2018-10-12] MEDS: amLODIPine BESYLATE 5 MG TABLET (FP) PO SCH (10:11)
[2018-10-12] MEDS: HYDROCORTISONE 1% TOPICAL OINT 30 GM TUBE TP SCH ×2 (10:11→22:09)
[2018-10-12] MEDS: NICOTINE 14 MG/24 HOURS TOPICAL PATCH TD SCH (10:11)
[2018-10-12] MEDS: THIAMINE HCL 100 MG TABLET (FP) PO SCH (21:05)
[2018-10-12] MEDS: MIRTAZAPINE 15 MG TABLET (FP) PO SCH (21:05)
[2018-10-12] MEDS: risperiDONE 0.5 MG TABLET (FP) PO SCH (21:07)
[2018-10-12] MEDS: MELATONIN 5 MG, MELATONIN 3 MG PO PRN (21:08)
[2018-10-13] MEDS: INSULIN SLIDING SCALE (NOVOLOG) 1 VIAL SQ SCH ×4 (07:04→21:09)
[2018-10-13] MEDS: metFORMIN HCL 500 MG TABLET (FP) PO SCH ×2 (07:04→16:42)
[2018-10-13] MEDS: NICOTINE 14 MG/24 HOURS TOPICAL PATCH TD SCH (09:33)
[2018-10-13] MEDS: amLODIPine BESYLATE 5 MG TABLET (FP) PO SCH (09:33)
[2018-10-13] MEDS: RANITIDINE HCL 150 MG TABLET (FP) PO SCH (09:33)
[2018-10-13] MEDS: PRENATAL VITAMINS W/ FOLIC ACID TABLET (FP) PO SCH (09:33)
[2018-10-13] MEDS: HYDROCORTISONE 1% TOPICAL OINT 30 GM TUBE TP SCH ×2 (09:34→21:08)
[2018-10-13] MEDS ORDERED: INSULIN (NOVOLOG) ASPART 100 UNITS/ML 10ML VIAL ONE ×2 (16:41→20:25)
[2018-10-13] MEDS: MIRTAZAPINE 15 MG TABLET (FP) PO SCH (21:05)
[2018-10-13] MEDS: risperiDONE 0.5 MG TABLET (FP) PO SCH (21:05)
[2018-10-13] MEDS: THIAMINE HCL 100 MG TABLET (FP) PO SCH (22:16)
[2018-10-14] MEDS: metFORMIN HCL 500 MG TABLET (FP) PO SCH ×2 (06:53→16:41)
[2018-10-14] MEDS: INSULIN SLIDING SCALE (NOVOLOG) 1 VIAL SQ SCH ×4 (07:12→21:05)
[2018-10-14] MEDS: RANITIDINE HCL 150 MG TABLET (FP) PO SCH (09:29)
[2018-10-14] MEDS: amLODIPine BESYLATE 5 MG TABLET (FP) PO SCH (09:29)
[2018-10-14] MEDS: NICOTINE 14 MG/24 HOURS TOPICAL PATCH TD SCH (09:29)
[2018-10-14] MEDS: PRENATAL VITAMINS W/ FOLIC ACID TABLET (FP) PO SCH (09:29)
[2018-10-14] MEDS: HYDROCORTISONE 1% TOPICAL OINT 30 GM TUBE TP SCH ×2 (09:29→21:03)
[2018-10-14] MEDS ORDERED: INSULIN (NOVOLOG) ASPART 100 UNITS/ML 10ML VIAL ONE ×2 (12:12→16:42)
[2018-10-14] MEDS: risperiDONE 0.5 MG TABLET (FP) PO SCH (21:02)
[2018-10-14] MEDS: THIAMINE HCL 100 MG TABLET (FP) PO SCH (21:02)
[2018-10-14] MEDS: MIRTAZAPINE 15 MG TABLET (FP) PO SCH (21:03)
[2018-10-15] MEDS: metFORMIN HCL 500 MG TABLET (FP) PO SCH ×2 (06:18→16:39)
[2018-10-15] MEDS ORDERED: INSULIN (NOVOLOG) ASPART 100 UNITS/ML 10ML VIAL ONE ×4 (06:19→22:13)
[2018-10-15] MEDS: INSULIN SLIDING SCALE (NOVOLOG) 1 VIAL SQ SCH ×4 (06:20→21:10)
[2018-10-15] MEDS: amLODIPine BESYLATE 5 MG TABLET (FP) PO SCH (09:42)
[2018-10-15] MEDS: RANITIDINE HCL 150 MG TABLET (FP) PO SCH (09:42)
[2018-10-15] MEDS: PRENATAL VITAMINS W/ FOLIC ACID TABLET (FP) PO SCH (09:43)
[2018-10-15] MEDS: NICOTINE 14 MG/24 HOURS TOPICAL PATCH TD SCH (09:43)
[2018-10-15] MEDS: HYDROCORTISONE 1% TOPICAL OINT 30 GM TUBE TP SCH ×2 (09:43→21:09)
[2018-10-15] MEDS: risperiDONE 0.5 MG TABLET (FP) PO SCH (21:08)
[2018-10-15] MEDS: THIAMINE HCL 100 MG TABLET (FP) PO SCH (21:08)
[2018-10-15] MEDS: MIRTAZAPINE 15 MG TABLET (FP) PO SCH (21:08)
[2018-10-16] MEDS: metFORMIN HCL 500 MG TABLET (FP) PO SCH ×2 (06:05→16:41)
[2018-10-16] MEDS: INSULIN SLIDING SCALE (NOVOLOG) 1 VIAL SQ SCH ×4 (06:05→21:10)
[2018-10-16] MEDS: RANITIDINE HCL 150 MG TABLET (FP) PO SCH (10:12)
[2018-10-16] MEDS: PRENATAL VITAMINS W/ FOLIC ACID TABLET (FP) PO SCH (10:12)
[2018-10-16] MEDS: amLODIPine BESYLATE 5 MG TABLET (FP) PO SCH (10:13)
[2018-10-16] MEDS: NICOTINE 14 MG/24 HOURS TOPICAL PATCH TD SCH (10:14)
[2018-10-16] MEDS: HYDROCORTISONE 1% TOPICAL OINT 30 GM TUBE TP SCH ×2 (10:14→21:08)
[2018-10-16] MEDS ORDERED: NICOTINE POLACRILEX 2 MG GUM BUC ONE (11:59)
[2018-10-16] MEDS ORDERED: INSULIN (NOVOLOG) ASPART 100 UNITS/ML 10ML VIAL ONE ×2 (12:29→22:01)
[2018-10-16] MEDS: THIAMINE HCL 100 MG TABLET (FP) PO SCH (21:06)
[2018-10-16] MEDS: risperiDONE 0.5 MG TABLET (FP) PO SCH (21:07)
[2018-10-16] MEDS: MIRTAZAPINE 15 MG TABLET (FP) PO SCH (21:08)
[2018-10-17] MEDS: INSULIN SLIDING SCALE (NOVOLOG) 1 VIAL SQ SCH ×4 (06:25→21:16)
[2018-10-17] MEDS: metFORMIN HCL 500 MG TABLET (FP) PO SCH ×2 (06:25→17:30)
[2018-10-17] MEDS: RANITIDINE HCL 150 MG TABLET (FP) PO SCH (10:13)
[2018-10-17] MEDS: amLODIPine BESYLATE 5 MG TABLET (FP) PO SCH (10:13)
[2018-10-17] MEDS: NICOTINE 14 MG/24 HOURS TOPICAL PATCH TD SCH (10:13)
[2018-10-17] MEDS: PRENATAL VITAMINS W/ FOLIC ACID TABLET (FP) PO SCH (10:13)
[2018-10-17] MEDS: HYDROCORTISONE 1% TOPICAL OINT 30 GM TUBE TP SCH ×2 (10:13→21:16)
--- NOTE | 2018-10-17 10:22 | PN ---
[facility] Progress Note Note: PT C/O NASAL DRYNESS, DRY LIPS AND BLISTER OR BUMP ON UPPER LIP. Vital Signs 10/17/18 10/17/18 03:22 06:35 Temperature 97.9 F Pulse Rate 94 H Respiratory 18 18 Rate Blood Pressure 139/83 SLIGHT RED BUMP ON UPPER LIP. A:DRY AIR SYNDROME PLAN:SALINE NASAL SPRAY BACITRACIN OINTMENT APPLY DIRECTED
[2018-10-17] MEDS ORDERED: SODIUM CHLORIDE NASAL SPRAY 44 ML BOTTLE NS ONE (10:23)
[2018-10-17] MEDS: SODIUM CHLORIDE NASAL SPRAY 44 ML BOTTLE NS PRN ×2 (11:07→21:16)
[2018-10-17] MEDS: BACITRACIN 0.9 GM PACKET TP SCH ×2 (11:07→21:16)
[2018-10-17] MEDS ORDERED: INSULIN (NOVOLOG) ASPART 100 UNITS/ML 10ML VIAL ONE (12:16)
[2018-10-17] MEDS: risperiDONE 0.5 MG TABLET (FP) PO SCH (21:15)
[2018-10-17] MEDS: THIAMINE HCL 100 MG TABLET (FP) PO SCH (21:16)
[2018-10-17] MEDS: MIRTAZAPINE 15 MG TABLET (FP) PO SCH (22:24)
[2018-10-18] MEDS: metFORMIN HCL 500 MG TABLET (FP) PO SCH ×2 (06:32→16:49)
[2018-10-18] MEDS: INSULIN SLIDING SCALE (NOVOLOG) 1 VIAL SQ SCH ×4 (06:33→21:02)
[2018-10-18] MEDS: BACITRACIN 0.9 GM PACKET TP SCH ×2 (10:06→21:00)
[2018-10-18] MEDS: SODIUM CHLORIDE NASAL SPRAY 44 ML BOTTLE NS PRN ×2 (10:07→21:02)
[2018-10-18] MEDS: amLODIPine BESYLATE 5 MG TABLET (FP) PO SCH (10:07)
[2018-10-18] MEDS: PRENATAL VITAMINS W/ FOLIC ACID TABLET (FP) PO SCH (10:07)
[2018-10-18] MEDS: RANITIDINE HCL 150 MG TABLET (FP) PO SCH (10:07)
[2018-10-18] MEDS: NICOTINE 14 MG/24 HOURS TOPICAL PATCH TD SCH (10:08)
[2018-10-18] MEDS: HYDROCORTISONE 1% TOPICAL OINT 30 GM TUBE TP SCH ×2 (12:14→21:03)
[2018-10-18] MEDS ORDERED: INSULIN (NOVOLOG) ASPART 100 UNITS/ML 10ML VIAL ONE (16:50)
[2018-10-18] MEDS: risperiDONE 0.5 MG TABLET (FP) PO SCH (21:01)
[2018-10-18] MEDS: MIRTAZAPINE 15 MG TABLET (FP) PO SCH (21:01)
[2018-10-18] MEDS: THIAMINE HCL 100 MG TABLET (FP) PO SCH (21:01)
[2018-10-19] MEDS: metFORMIN HCL 500 MG TABLET (FP) PO SCH ×2 (06:39→16:46)
[2018-10-19] MEDS: INSULIN SLIDING SCALE (NOVOLOG) 1 VIAL SQ SCH ×4 (06:39→21:47)
[2018-10-19 06:54] VITALS: TEMP 98.5
[2018-10-19] MEDS: PRENATAL VITAMINS W/ FOLIC ACID TABLET (FP) PO SCH (09:37)
[2018-10-19] MEDS: amLODIPine BESYLATE 5 MG TABLET (FP) PO SCH (09:37)
[2018-10-19] MEDS: RANITIDINE HCL 150 MG TABLET (FP) PO SCH (09:37)
[2018-10-19] MEDS: NICOTINE 14 MG/24 HOURS TOPICAL PATCH TD SCH (09:38)
[2018-10-19] MEDS: BACITRACIN 0.9 GM PACKET TP SCH ×2 (09:38→21:46)
[2018-10-19] MEDS: HYDROCORTISONE 1% TOPICAL OINT 30 GM TUBE TP SCH ×2 (11:09→21:47)
[2018-10-19] MEDS ORDERED: INSULIN (NOVOLOG) ASPART 100 UNITS/ML 10ML VIAL ONE (11:11)
--- NOTE | 2018-10-19 16:05 | PN ---
Psychiatric Progress Note Vital Signs: Vital Signs Period Temp Pulse Resp BP Sys/Muse Pulse Ox Last 24 Hr 98.5 F 98-99 - 137-146/86-88 Date of Session: 10/19/18 Chief Complaint:: "Discharge." HPI: Patient was admitted to for alcohol dependence. ROS: HTN,GERD,DM,Herpes. Current Medications: Active Medications Generic Name Dose Route Start Last Admin Trade Name Freq PRN Reason Stop Dose Admin Acetaminophen 650 mg 09/26/18 21:24 Tylenol - PO Q4H PRN FEVER Al Hydroxide/Mg Hydroxide 30 ml 09/26/18 21:24 10/03/18 02:56 Mylanta Oral Suspension - PO 30 ml Q6H PRN Administration DYSPEPSIA Amlodipine Besylate 10 mg 09/27/18 10:00 10/19/18 09:37 Norvasc - PO 10 mg DAILY SUDHEER Administration Bacitracin 0.9 gm 10/17/18 10:30 10/19/18 09:38 Bacitracin - TP Not Given BID [facility] Eucalyptus/Menthol/Phenol/Sorbitol 1 each 09/26/18 21:24 Cepastat Lozenge - MM Q4H PRN SORE THROAT Guaifenesin 10 ml 09/26/18 21:24 Robitussin Dm - PO Q6H PRN COUGH Hydrocortisone 1 applic 09/27/18 14:00 10/19/18 11:09 Hytone 1% Ointment - TP Not Given BID [facility] Hydroxyzine Pamoate 50 mg 09/26/18 21:24 10/09/18 21:09 Vistaril - PO 50 mg Q4H PRN Administration AGITATION Ibuprofen 400 mg 09/26/18 21:24 Motrin - PO Q6H PRN Pain Level 4-6 Insulin Aspart 1 vial 10/03/18 23:45 10/19/18 11:13 Novolog Vial Sliding Scale - SQ 2 unit ACHS SUDHEER Administration Protocol Loperamide HCl 4 mg 09/26/18 21:24 Imodium - PO Q6H PRN DIARRHEA Magnesium Citrate 300 ml 09/26/18 21:24 Citroma - PO Q48H PRN CONSTIPATION Magnesium Hydroxide 30 ml 09/26/18 21:24 Milk Of Magnesia - PO DAILY PRN CONSTIPATION Melatonin 5 mg/ Melatonin 3 mg 8 mg 10/03/18 22:00 10/12/18 21:08 PO 8 mg HS PRN Administration INSOMNIA Metformin HCl 500 mg 10/09/18 16:30 10/19/18 06:39 Glucophage - PO 500 mg BID@0700,1630 SUDHEER Administration Mirtazapine 7.5 mg 09/26/18 23:45 10/18/18 21:01 Remeron - PO 7.5 mg HS SUDHEER Administration Nicotine 14 mg 09/27/18 10:00 10/19/18 09:38 Nicoderm Patch - TD Not Given DAILY SUDHEER Nicotine Polacrilex 2 mg 09/26/18 21:24 10/10/18 10:00 Nicorette Gum - BUC 2 mg Q2H PRN Administration NICOTINE REPLACEMENT RX Multivit/Folic Acid/Iron 1 tab 09/27/18 10:00 10/19/18 09:37 Vitamins (Sjr) - PO 1 tab DAILY SUDHEER Administration Pseudoephedrine/Triprolidine 1 combo 09/26/18 21:24 Actifed - PO TID PRN NASAL CONGESTION Ranitidine HCl 150 mg 09/30/18 10:00 10/19/18 09:37 Zantac - PO 150 mg DAILY SUDHEER Administration Risperidone 0.5 mg 09/29/18 22:00 10/18/18 21:01 Risperdal - PO 0.5 mg HS SUDHEER Administration Sodium Chloride 2 spray 10/17/18 10:22 10/18/18 21:02 [place] Nasal [place] - NS 2 spray TID PRN Administration NASAL CONGESTION Thiamine HCl 100 mg 09/26/18 22:00 10/18/18 21:01 Vitamin B1 - PO 100 mg HS SUDHEER Administration Medication(s) Change(s): No. Current Side Effect: No Lab tests ordered: No Lab tests reviewed: Yes Provider note:: Patient will complete the [facility] rehabilitation program on 10/20/18. He has met his treatment goals and will continue to address his issues at the [facility] outpatient clinic. Patient states the rehab was effective and now feels more confident about being able to remain sober from substance abuse. A 30 day prescription of risperdal 0.5mg and Remeron 7.5mg will be electronically sent to patient's pharmacy at [facility] [id number] [place] [address]. Patient is stable for discharge on 10/19/18. Total face to face time:: 35 Mental Status Exam - Mental Status Exam Alert and Oriented to: Time, Place, Person Cognitive Function: Good Patient Appearance: Well Groomed Mood: Hopeful Affect: Appropriate Patient Behavior: Appropriate, Cooperative Speech Pattern: Clear, Appropriate Voice Loudness: Normal Thought Process: Intact, Goal Oriented Thought Disorder: Not Present Hallucinations: Denies Suicidal Ideation: Denies Homicidal Ideation: Denies Insight/Judgement: Good Sleep: Well Appetite: Good Muscle strength/Tone: Normal Gait/Station: Normal Psychiatric Treatment Plan - Problem List (1) Alcohol dependence Current Visit: Yes (2) Bipolar disorder Current Visit: Yes (3) Cocaine dependence Current Visit: Yes Qualifiers: (4) Nicotine dependence Current Visit: Yes Qualifiers:
[2018-10-19] MEDS: THIAMINE HCL 100 MG TABLET (FP) PO SCH (21:46)
[2018-10-19] MEDS: risperiDONE 0.5 MG TABLET (FP) PO SCH (21:47)
[2018-10-19] MEDS: MAG HYDROX/AL HYDROX/SIMETH 30 ML UNIT-DOSE CUP PO PRN (21:48)
[2018-10-19] MEDS: MIRTAZAPINE 15 MG TABLET (FP) PO SCH (21:49)
[2018-10-19] MEDS: SODIUM CHLORIDE NASAL SPRAY 44 ML BOTTLE NS PRN (21:49)
[2018-10-20] MEDS ORDERED: INSULIN (NOVOLOG) ASPART 100 UNITS/ML 10ML VIAL ONE (06:18)
[2018-10-20] MEDS: metFORMIN HCL 500 MG TABLET (FP) PO SCH (06:18)
[2018-10-20 06:45] VITALS: BP 129/85; PULSE 95
[2018-10-20] MEDS: INSULIN SLIDING SCALE (NOVOLOG) 1 VIAL SQ SCH (07:38)
[2018-10-20] MEDS: BACITRACIN 0.9 GM PACKET TP SCH (09:56)
[2018-10-20] MEDS: HYDROCORTISONE 1% TOPICAL OINT 30 GM TUBE TP SCH (09:57)
[2018-10-20] MEDS: PRENATAL VITAMINS W/ FOLIC ACID TABLET (FP) PO SCH (09:57)
[2018-10-20] MEDS: amLODIPine BESYLATE 5 MG TABLET (FP) PO SCH (09:57)
[2018-10-20] MEDS: RANITIDINE HCL 150 MG TABLET (FP) PO SCH (09:57)
[2018-10-20] MEDS: SODIUM CHLORIDE NASAL SPRAY 44 ML BOTTLE NS PRN (09:58)
[2018-10-20] MEDS: NICOTINE 14 MG/24 HOURS TOPICAL PATCH TD SCH (11:11)
== END 2018-10-20 11:00 | disposition home or self-care (01) | DRG 772 ==
LOC: YASAS 16:22 → Y5N 22:12
PROVIDERS: ADMIT Psychiatry & Neurology Psychiatry; ATTEND Psychiatry & Neurology Psychiatry
PROC: HZ42ZZZ Group Counseling for Substance Abuse Treatment, Cognitive-Behavioral (ICD-10-PCS; principal; 2018-09-26)
DX: F10.20 Alcohol dependence, uncomplicated (principal); F14.20 Cocaine dependence, uncomplicated; F17.200 Nicotine dependence, unspecified, uncomplicated; F31.9 Bipolar disorder, unspecified; F41.9 Anxiety disorder, unspecified; I10 Essential (primary) hypertension; K21.9 Gastro-esophageal reflux disease without esophagitis; E11.65 Type 2 diabetes mellitus with hyperglycemia; Z79.4 Long term (current) use of insulin; B18.2 Chronic viral hepatitis C; A60.00 Herpesviral infection of urogenital system, unspecified; Z87.442 Personal history of urinary calculi; Z87.09 Personal history of other diseases of the respiratory system
CPT/HCPCS: 82962; J2794

== ENCOUNTER 2022-03-08 23:04 | Inpatient (IN) | payer MEDICARE, OTHER ==
[2022-03-08 23:27] VITALS: BMI 17.9
[2022-03-08] MEDS ORDERED: MAGNESIUM HYDROX 2400MG/30ML ORAL SUSPENSION 30 ML CUP PO PRN (23:56)
[2022-03-08] MEDS ORDERED: LOPERAMIDE HCL 2 MG CAPSULE PO PRN (23:56)
[2022-03-08] MEDS ORDERED: ACETAMINOPHEN 325 MG TABLET (FP) PO PRN ×2 (23:56)
[2022-03-08] MEDS ORDERED: DICYCLOMINE HCL 10 MG CAPSULE PO PRN (23:56)
[2022-03-08] MEDS ORDERED: MAG HYDROX/AL HYDROX/SIMETH 30 ML UNIT-DOSE CUP PO PRN (23:56)
[2022-03-08] MEDS ORDERED: IBUPROFEN 400 MG TABLET (FP) PO PRN (23:56)
[2022-03-08] MEDS ORDERED: ONDANSETRON *ODT* 4 MG TABLET SL PRN (23:56)
[2022-03-08] MEDS ORDERED: MAGNESIUM CITRATE 300 ML BOTTLE PO PRN (23:56)
[2022-03-08] MEDS ORDERED: BENZOCAINE/MENTHOL (CHLORASEPTIC ) LOZENGE MM PRN (23:56)
[2022-03-08] MEDS ORDERED: BISMUTH SUBSALICYLATE 524 MG/30 ML PO PRN (23:56)
[2022-03-08] MEDS ORDERED: chlordiazePOXIDE HCL 25 MG CAPSULE PO PRN (23:59)
[2022-03-09] MEDS: chlordiazePOXIDE HCL 25 MG CAPSULE PO SCH ×5 (02:28→22:28)
[2022-03-09] MEDS: INSULIN SLIDING SCALE (NOVOLOG) 1 VIAL SQ SCH ×5 (02:28→22:28)
[2022-03-09] MEDS: PRENATAL VITAMINS W/ FOLIC ACID TABLET (FP) PO SCH (10:15)
[2022-03-09] MEDS: amLODIPine BESYLATE 5 MG TABLET (FP) PO SCH (10:15)
[2022-03-09 12:44] LABS: HEMOGLOBIN 11.5 GM/dL (11.7-16.9); MCH 28.7 pg (25.7-33.7); MCHC 31.8 g/dl (32.0-35.9); MEAN CELL VOLUME 90.4 fl (80-96); MEAN PLT VOLUME 10.2 fl (7.5-11.1); PLATELET COUNT 125 10^3/uL (134-434); RBC 3.99 M/mm3 (4.00-5.60); RDW 13.6 % (11.9-15.9); WHITE BLOOD COUNT 4.6 K/mm3 (4.0-10.0)
[2022-03-09 12:52] LABS: BLOOD UREA NITROGEN 18.1 mg/dL (7-18)
[2022-03-09 12:53] LABS: ALBUMIN 2.7 g/dl (3.4-5.0)
[2022-03-09 12:56] LABS: CREATININE 0.8 mg/dL (0.55-1.3)
[2022-03-09 12:57] LABS: TOT PROT 6.2 g/dl (6.4-8.2)
[2022-03-09 12:59] LABS: BILIRUBIN,TOTAL 1.6 mg/dL (0.2-1)
[2022-03-09] MEDS: THIAMINE HCL 100 MG TABLET (FP) PO SCH (22:28)
[2022-03-09] MEDS: MELATONIN 5 MG TABLETS PO SCH (22:28)
[2022-03-10] MEDS: chlordiazePOXIDE HCL 25 MG CAPSULE PO SCH ×4 (06:32→22:54)
[2022-03-10] MEDS: DAPAGLIFLOZIN PROPANEDIOL 5 MG TABLET PO SCH (06:33)
[2022-03-10] MEDS: INSULIN SLIDING SCALE (NOVOLOG) 1 VIAL SQ SCH ×4 (06:33→22:53)
[2022-03-10] MEDS: metFORMIN HCL 500 MG TABLET (FP) PO SCH (06:46)
[2022-03-10] MEDS: PRENATAL VITAMINS W/ FOLIC ACID TABLET (FP) PO SCH (10:39)
[2022-03-10] MEDS: amLODIPine BESYLATE 5 MG TABLET (FP) PO SCH (10:39)
[2022-03-10] MEDS: ASPIRIN 81 MG CHEWABLE TABLETS PO SCH (10:39)
[2022-03-10] MEDS: LISINOPRIL 5 MG TABLET PO SCH (10:39)
[2022-03-10 12:08] LABS: SARS-CoV-2 NAA Not Detected (Not Detected)
[2022-03-10] MEDS: THIAMINE HCL 100 MG TABLET (FP) PO SCH (22:52)
[2022-03-10] MEDS: MELATONIN 5 MG TABLETS PO SCH (22:52)
[2022-03-11] MEDS ORDERED: chlordiazePOXIDE HCL 10 MG CAPSULE PO PRN
[2022-03-11] MEDS: chlordiazePOXIDE HCL 10 MG CAPSULE PO SCH ×4 (05:50→22:56)
[2022-03-11] MEDS: metFORMIN HCL 500 MG TABLET (FP) PO SCH (07:16)
[2022-03-11] MEDS: INSULIN SLIDING SCALE (NOVOLOG) 1 VIAL SQ SCH ×4 (07:17→22:55)
[2022-03-11] MEDS: DAPAGLIFLOZIN PROPANEDIOL 5 MG TABLET PO SCH (07:17)
[2022-03-11] MEDS: ASPIRIN 81 MG CHEWABLE TABLETS PO SCH (10:38)
[2022-03-11] MEDS: amLODIPine BESYLATE 5 MG TABLET (FP) PO SCH (10:38)
[2022-03-11] MEDS: LISINOPRIL 5 MG TABLET PO SCH (10:38)
[2022-03-11] MEDS: PRENATAL VITAMINS W/ FOLIC ACID TABLET (FP) PO SCH (10:38)
[2022-03-11] MEDS ORDERED: INSULIN SLIDING SCALE (NOVOLOG) 1 VIAL SQ ONE (12:53)
[2022-03-11] MEDS: THIAMINE HCL 100 MG TABLET (FP) PO SCH (22:48)
[2022-03-11] MEDS: MELATONIN 5 MG TABLETS PO SCH (22:48)
[2022-03-12] MEDS: chlordiazePOXIDE HCL 10 MG CAPSULE PO SCH ×2 (05:39→16:36)
[2022-03-12] MEDS: metFORMIN HCL 500 MG TABLET (FP) PO SCH (06:41)
[2022-03-12] MEDS: DAPAGLIFLOZIN PROPANEDIOL 5 MG TABLET PO SCH (06:42)
[2022-03-12] MEDS: INSULIN SLIDING SCALE (NOVOLOG) 1 VIAL SQ SCH ×4 (06:42→22:45)
[2022-03-12] MEDS: LISINOPRIL 5 MG TABLET PO SCH (10:46)
[2022-03-12] MEDS: ASPIRIN 81 MG CHEWABLE TABLETS PO SCH (10:46)
[2022-03-12] MEDS: amLODIPine BESYLATE 5 MG TABLET (FP) PO SCH (10:46)
[2022-03-12] MEDS: PRENATAL VITAMINS W/ FOLIC ACID TABLET (FP) PO SCH (10:46)
[2022-03-12] MEDS: MELATONIN 5 MG TABLETS PO SCH (22:18)
[2022-03-12] MEDS: THIAMINE HCL 100 MG TABLET (FP) PO SCH (22:18)
[2022-03-13] MEDS ORDERED: chlordiazePOXIDE HCL 10 MG CAPSULE PO ONE (05:00)
[2022-03-13] MEDS: metFORMIN HCL 500 MG TABLET (FP) PO SCH (06:01)
[2022-03-13] MEDS: DAPAGLIFLOZIN PROPANEDIOL 5 MG TABLET PO SCH (06:01)
[2022-03-13 07:14] VITALS: BP 119/83; PULSE 90; TEMP 97.5
[2022-03-13] MEDS: INSULIN SLIDING SCALE (NOVOLOG) 1 VIAL SQ SCH (08:51)
[2022-03-13] MEDS: ASPIRIN 81 MG CHEWABLE TABLETS PO SCH (10:19)
[2022-03-13] MEDS: LISINOPRIL 5 MG TABLET PO SCH (10:19)
[2022-03-13] MEDS: PRENATAL VITAMINS W/ FOLIC ACID TABLET (FP) PO SCH (10:19)
[2022-03-13] MEDS: amLODIPine BESYLATE 5 MG TABLET (FP) PO SCH (10:20)
== END 2022-03-13 11:05 | disposition home or self-care (01) | DRG 897 ==
LOC: YASAS 23:04 → Y3N 23:39
PROVIDERS: ADMIT Allergy & Immunology; ATTEND Allergy & Immunology
PROC: HZ2ZZZZ Detoxification Services for Substance Abuse Treatment (ICD-10-PCS; principal; 2022-03-08)
DX: F10.230 Alcohol dependence with withdrawal, uncomplicated (principal); F10.220 Alcohol dependence with intoxication, uncomplicated; F17.210 Nicotine dependence, cigarettes, uncomplicated; F31.9 Bipolar disorder, unspecified; I10 Essential (primary) hypertension; J45.909 Unspecified asthma, uncomplicated; K21.9 Gastro-esophageal reflux disease without esophagitis; E11.9 Type 2 diabetes mellitus without complications; Z79.84 Long term (current) use of oral hypoglycemic drugs; Z62.810 Personal history of physical and sexual abuse in childhood; Z86.19 Personal history of other infectious and parasitic diseases; Z56.0 Unemployment, unspecified
CPT/HCPCS: 36415; 80053; 82962; 85027; 86780; C9803-CS; U0003; U0005

== ENCOUNTER 2022-04-08 13:12 | Inpatient (IN) | payer MEDICARE, OTHER ==
[2022-04-08 15:00] VITALS: BMI 16.4
[2022-04-08] MEDS ORDERED: ACETAMINOPHEN 325 MG TABLET (FP) PO PRN (15:27)
[2022-04-08] MEDS ORDERED: P-EPHED 60MG/TRIPROLIDI 2.5MG TABLET PO PRN (15:27)
[2022-04-08] MEDS ORDERED: MAGNESIUM CITRATE 300 ML BOTTLE PO PRN (15:27)
[2022-04-08] MEDS ORDERED: MAGNESIUM HYDROX 2400MG/30ML ORAL SUSPENSION 30 ML CUP PO PRN (15:27)
[2022-04-08] MEDS ORDERED: guaiFENesin 200 MG/10 ML 10 ML UNIT-DOSE CUPS PO PRN (15:27)
[2022-04-08] MEDS ORDERED: IBUPROFEN 400 MG TABLET (FP) PO PRN (15:27)
[2022-04-08] MEDS ORDERED: INSULIN SLIDING SCALE (NOVOLOG) 1 VIAL SQ SCH (16:30)
[2022-04-08] MEDS ORDERED: valACYclovir HCL 500 MG TABLET (FP) PO SCH (22:00)
[2022-04-08] MEDS ORDERED: PATIENT'S OWN MEDICATION (NON-FORMULARY) (Sitagliptin Phos/Metformin Hcl [Janumet 50-1,000 PO SCH (22:00)
[2022-04-08] MEDS: PRENATAL VITAMINS W/ FOLIC ACID TABLET (FP) PO SCH (22:19)
[2022-04-08] MEDS: NICOTINE 7 MG/24 HOURS TOPICAL PATCH TD SCH (22:19)
[2022-04-08] MEDS: MELATONIN 5 MG TABLETS PO SCH (22:21)
[2022-04-08] MEDS: amLODIPine BESYLATE 5 MG TABLET (FP) PO SCH (22:22)
[2022-04-08] MEDS: THIAMINE HCL 100 MG TABLET (FP) PO SCH (22:22)
[2022-04-08] MEDS: LISINOPRIL 5 MG TABLET PO SCH (22:23)
[2022-04-08] MEDS: MIRTAZAPINE 15 MG TABLET (FP) PO SCH (22:23)
[2022-04-08] MEDS: hydrOXYzine PAMOATE 25 MG CAPSULE (FP) PO SCH ×2 (22:23)
[2022-04-08] MEDS: ATORVASTATIN CA 40 MG TABLET (FP) PO SCH (22:23)
[2022-04-08] MEDS: INSULIN SLIDING SCALE (NOVOLOG) 1 VIAL SQ SCH (22:28)
[2022-04-09] MEDS: hydrOXYzine PAMOATE 25 MG CAPSULE (FP) PO SCH ×2 (06:24→10:14)
[2022-04-09] MEDS: INSULIN SLIDING SCALE (NOVOLOG) 1 VIAL SQ SCH ×4 (06:37→21:58)
[2022-04-09] MEDS: sitaGLIPtin PHOSPHATE 50 MG TABLET PO SCH ×2 (06:40→17:51)
[2022-04-09] MEDS: metFORMIN HCL 500 MG TABLET (FP) PO SCH ×2 (06:40→17:50)
[2022-04-09] MEDS ORDERED: PATIENT'S OWN MEDICATION (NON-FORMULARY) (Dapagliflozin Propanediol [Farxiga] 10 MG Tablet PO SCH (10:00)
[2022-04-09] MEDS: amLODIPine BESYLATE 5 MG TABLET (FP) PO SCH (10:12)
[2022-04-09] MEDS: NICOTINE 7 MG/24 HOURS TOPICAL PATCH TD SCH (10:13)
[2022-04-09] MEDS: PRENATAL VITAMINS W/ FOLIC ACID TABLET (FP) PO SCH (10:13)
[2022-04-09] MEDS: LISINOPRIL 5 MG TABLET PO SCH (10:13)
[2022-04-09] MEDS: ASPIRIN 81 MG CHEWABLE TABLETS PO SCH (10:13)
[2022-04-09] MEDS ORDERED: hydrOXYzine PAMOATE 25 MG CAPSULE (FP) PO PRN (11:07)
[2022-04-09] MEDS ORDERED: INSULIN (NOVOLOG) ASPART 100 UNITS/ML 10ML VIAL ONE (12:06)
[2022-04-09 18:38] LABS: HEMATOCRIT 36.5 % (35.4-49); HEMOGLOBIN 11.9 GM/dL (11.7-16.9); MCH 29.6 pg (25.7-33.7); MCHC 32.7 g/dl (32.0-35.9); MEAN CELL VOLUME 90.5 fl (80-96); PLATELET COUNT 152 10^3/uL (134-434); RBC 4.03 M/mm3 (4.00-5.60); RDW 15.1 % (11.9-15.9); WHITE BLOOD COUNT 4.5 K/mm3 (4.0-10.0)
[2022-04-09 18:40] LABS: CALCIUM 9.2 mg/dL (8.5-10.1)
[2022-04-09 18:41] LABS: ALBUMIN 3.1 g/dl (3.4-5.0); BLOOD UREA NITROGEN 13.7 mg/dL (7-18)
[2022-04-09 18:44] LABS: CREATININE 0.8 mg/dL (0.55-1.3)
[2022-04-09 18:46] LABS: BILIRUBIN,TOTAL 1.5 mg/dL (0.2-1)
[2022-04-09] MEDS: MELATONIN 5 MG TABLETS PO SCH (21:57)
[2022-04-09] MEDS: ATORVASTATIN CA 40 MG TABLET (FP) PO SCH (21:57)
[2022-04-09] MEDS: THIAMINE HCL 100 MG TABLET (FP) PO SCH (21:57)
[2022-04-09] MEDS: MIRTAZAPINE 15 MG TABLET (FP) PO SCH (21:57)
[2022-04-10] MEDS: metFORMIN HCL 500 MG TABLET (FP) PO SCH ×2 (06:52→16:55)
[2022-04-10] MEDS: sitaGLIPtin PHOSPHATE 50 MG TABLET PO SCH ×2 (06:52→16:55)
[2022-04-10] MEDS: INSULIN SLIDING SCALE (NOVOLOG) 1 VIAL SQ SCH ×3 (06:53→21:32)
[2022-04-10] MEDS: PATIENT'S OWN MEDICATION (NON-FORMULARY) (Dapagliflozin Propanediol [Farxiga] 10 MG Tablet PO SCH (06:53)
[2022-04-10] MEDS: ASPIRIN 81 MG CHEWABLE TABLETS PO SCH (09:45)
[2022-04-10] MEDS: NICOTINE 7 MG/24 HOURS TOPICAL PATCH TD SCH (09:45)
[2022-04-10] MEDS: amLODIPine BESYLATE 5 MG TABLET (FP) PO SCH (09:46)
[2022-04-10] MEDS: LISINOPRIL 5 MG TABLET PO SCH (09:46)
[2022-04-10] MEDS: PRENATAL VITAMINS W/ FOLIC ACID TABLET (FP) PO SCH (09:46)
[2022-04-10 13:54] LABS: PH,URINE 5.5 (5.0-8.0); URINE APPEARANCE CLOUDY; URINE BILIRUBIN NEGATIVE (NEGATIVE); URINE COLOR YELLOW; URINE GLUCOSE (UA) 3+ (NEGATIVE); URINE KETONE NEGATIVE (NEGATIVE); URINE LEUK ESTERASE NEGATIVE (NEGATIVE); URINE NITRITE NEGATIVE (NEGATIVE); URINE PROTEIN NEGATIVE (NEGATIVE)
[2022-04-10] MEDS: MELATONIN 5 MG TABLETS PO SCH (21:30)
[2022-04-10] MEDS: ATORVASTATIN CA 40 MG TABLET (FP) PO SCH (21:30)
[2022-04-10] MEDS: MIRTAZAPINE 15 MG TABLET (FP) PO SCH (21:30)
[2022-04-10] MEDS: THIAMINE HCL 100 MG TABLET (FP) PO SCH (21:30)
[2022-04-11] MEDS: PATIENT'S OWN MEDICATION (NON-FORMULARY) (Dapagliflozin Propanediol [Farxiga] 10 MG Tablet PO SCH (06:21)
[2022-04-11] MEDS: sitaGLIPtin PHOSPHATE 50 MG TABLET PO SCH ×2 (06:22→16:33)
[2022-04-11] MEDS: metFORMIN HCL 500 MG TABLET (FP) PO SCH ×2 (06:22→16:33)
[2022-04-11] MEDS: ASPIRIN 81 MG CHEWABLE TABLETS PO SCH (09:31)
[2022-04-11] MEDS: amLODIPine BESYLATE 5 MG TABLET (FP) PO SCH (09:32)
[2022-04-11] MEDS: NICOTINE 7 MG/24 HOURS TOPICAL PATCH TD SCH (09:32)
[2022-04-11] MEDS: LISINOPRIL 5 MG TABLET PO SCH (09:33)
[2022-04-11] MEDS: PRENATAL VITAMINS W/ FOLIC ACID TABLET (FP) PO SCH (09:33)
[2022-04-11] MEDS: INSULIN SLIDING SCALE (NOVOLOG) 1 VIAL SQ SCH ×2 (09:40→16:33)
[2022-04-11] MEDS: MAG HYDROX/AL HYDROX/SIMETH 30 ML UNIT-DOSE CUP PO PRN (11:16)
[2022-04-11] MEDS: THIAMINE HCL 100 MG TABLET (FP) PO SCH (21:33)
[2022-04-11] MEDS: MELATONIN 5 MG TABLETS PO SCH (21:33)
[2022-04-11] MEDS: MIRTAZAPINE 15 MG TABLET (FP) PO SCH (21:34)
[2022-04-11] MEDS: ATORVASTATIN CA 40 MG TABLET (FP) PO SCH (21:34)
[2022-04-12] MEDS: PATIENT'S OWN MEDICATION (NON-FORMULARY) (Dapagliflozin Propanediol [Farxiga] 10 MG Tablet PO SCH (06:42)
[2022-04-12] MEDS: sitaGLIPtin PHOSPHATE 50 MG TABLET PO SCH ×2 (06:42→16:44)
[2022-04-12] MEDS: metFORMIN HCL 500 MG TABLET (FP) PO SCH ×2 (06:42→16:42)
[2022-04-12] MEDS: INSULIN SLIDING SCALE (NOVOLOG) 1 VIAL SQ SCH ×2 (06:44→16:44)
[2022-04-12] MEDS: PRENATAL VITAMINS W/ FOLIC ACID TABLET (FP) PO SCH (09:42)
[2022-04-12] MEDS: ASPIRIN 81 MG CHEWABLE TABLETS PO SCH (09:42)
[2022-04-12] MEDS: NICOTINE 7 MG/24 HOURS TOPICAL PATCH TD SCH (09:42)
[2022-04-12] MEDS: LISINOPRIL 5 MG TABLET PO SCH (09:43)
[2022-04-12] MEDS: amLODIPine BESYLATE 5 MG TABLET (FP) PO SCH (09:43)
[2022-04-12] MEDS: MELATONIN 5 MG TABLETS PO SCH (21:40)
[2022-04-12] MEDS: ATORVASTATIN CA 40 MG TABLET (FP) PO SCH (21:40)
[2022-04-12] MEDS: THIAMINE HCL 100 MG TABLET (FP) PO SCH (21:40)
[2022-04-12] MEDS: MIRTAZAPINE 15 MG TABLET (FP) PO SCH (21:40)
[2022-04-12] MEDS: MAG HYDROX/AL HYDROX/SIMETH 30 ML UNIT-DOSE CUP PO PRN (21:41)
[2022-04-13] MEDS: PATIENT'S OWN MEDICATION (NON-FORMULARY) (Dapagliflozin Propanediol [Farxiga] 10 MG Tablet PO SCH (06:35)
[2022-04-13] MEDS: metFORMIN HCL 500 MG TABLET (FP) PO SCH ×2 (06:35→16:27)
[2022-04-13] MEDS: sitaGLIPtin PHOSPHATE 50 MG TABLET PO SCH ×2 (06:36→16:28)
[2022-04-13] MEDS: MAG HYDROX/AL HYDROX/SIMETH 30 ML UNIT-DOSE CUP PO PRN (06:36)
[2022-04-13] MEDS: INSULIN SLIDING SCALE (NOVOLOG) 1 VIAL SQ SCH ×2 (06:50→16:30)
[2022-04-13] MEDS: ASPIRIN 81 MG CHEWABLE TABLETS PO SCH (09:49)
[2022-04-13] MEDS: amLODIPine BESYLATE 5 MG TABLET (FP) PO SCH (09:49)
[2022-04-13] MEDS: PRENATAL VITAMINS W/ FOLIC ACID TABLET (FP) PO SCH (09:49)
[2022-04-13] MEDS: LISINOPRIL 5 MG TABLET PO SCH (09:49)
[2022-04-13] MEDS: NICOTINE 7 MG/24 HOURS TOPICAL PATCH TD SCH (09:50)
[2022-04-13] MEDS: PANTOPRAZOLE 40 MG TABLET PO SCH (15:34)
[2022-04-13] MEDS: MELATONIN 5 MG TABLETS PO SCH (21:09)
[2022-04-13] MEDS: THIAMINE HCL 100 MG TABLET (FP) PO SCH (21:09)
[2022-04-13] MEDS: MIRTAZAPINE 15 MG TABLET (FP) PO SCH (21:09)
[2022-04-13] MEDS: ATORVASTATIN CA 40 MG TABLET (FP) PO SCH (21:09)
[2022-04-14] MEDS: PATIENT'S OWN MEDICATION (NON-FORMULARY) (Dapagliflozin Propanediol [Farxiga] 10 MG Tablet PO SCH (06:23)
[2022-04-14] MEDS: metFORMIN HCL 500 MG TABLET (FP) PO SCH ×2 (06:23→16:50)
[2022-04-14] MEDS: sitaGLIPtin PHOSPHATE 50 MG TABLET PO SCH ×2 (06:24→16:51)
[2022-04-14] MEDS: INSULIN SLIDING SCALE (NOVOLOG) 1 VIAL SQ SCH ×2 (06:25→16:50)
[2022-04-14] MEDS: LOPERAMIDE HCL 2 MG CAPSULE PO PRN (08:24)
[2022-04-14] MEDS: PRENATAL VITAMINS W/ FOLIC ACID TABLET (FP) PO SCH (09:49)
[2022-04-14] MEDS: NICOTINE 7 MG/24 HOURS TOPICAL PATCH TD SCH (09:49)
[2022-04-14] MEDS: ASPIRIN 81 MG CHEWABLE TABLETS PO SCH (09:50)
[2022-04-14] MEDS: amLODIPine BESYLATE 5 MG TABLET (FP) PO SCH (09:50)
[2022-04-14] MEDS: LISINOPRIL 5 MG TABLET PO SCH (09:51)
[2022-04-14] MEDS: PANTOPRAZOLE 40 MG TABLET PO SCH (09:51)
[2022-04-14] MEDS: ATORVASTATIN CA 40 MG TABLET (FP) PO SCH (21:33)
[2022-04-14] MEDS: MELATONIN 5 MG TABLETS PO SCH (21:34)
[2022-04-14] MEDS: MIRTAZAPINE 15 MG TABLET (FP) PO SCH (21:34)
[2022-04-14] MEDS: THIAMINE HCL 100 MG TABLET (FP) PO SCH (21:34)
[2022-04-15] MEDS: metFORMIN HCL 500 MG TABLET (FP) PO SCH ×2 (06:38→16:33)
[2022-04-15] MEDS: PATIENT'S OWN MEDICATION (NON-FORMULARY) (Dapagliflozin Propanediol [Farxiga] 10 MG Tablet PO SCH (06:38)
[2022-04-15] MEDS: sitaGLIPtin PHOSPHATE 50 MG TABLET PO SCH ×2 (06:38→16:33)
[2022-04-15] MEDS: INSULIN SLIDING SCALE (NOVOLOG) 1 VIAL SQ SCH ×2 (06:39→16:34)
[2022-04-15] MEDS: NICOTINE 10 MG CARTRIDGE (INHALER) IH PRN (06:40)
[2022-04-15] MEDS: PRENATAL VITAMINS W/ FOLIC ACID TABLET (FP) PO SCH (09:47)
[2022-04-15] MEDS: amLODIPine BESYLATE 5 MG TABLET (FP) PO SCH (09:47)
[2022-04-15] MEDS: ASPIRIN 81 MG CHEWABLE TABLETS PO SCH (09:48)
[2022-04-15] MEDS: LISINOPRIL 5 MG TABLET PO SCH (09:48)
[2022-04-15] MEDS: NICOTINE 7 MG/24 HOURS TOPICAL PATCH TD SCH (09:48)
[2022-04-15] MEDS: PANTOPRAZOLE 40 MG TABLET PO SCH (09:48)
[2022-04-15] MEDS ORDERED: SIMETHICONE 80 MG TAB.CHEW (FP) PO PRN (15:09)
[2022-04-15] MEDS: THIAMINE HCL 100 MG TABLET (FP) PO SCH (21:14)
[2022-04-15] MEDS: MELATONIN 5 MG TABLETS PO SCH (21:14)
[2022-04-15] MEDS: FAMOTIDINE 20 MG TABLET PO SCH (21:15)
[2022-04-15] MEDS: MIRTAZAPINE 15 MG TABLET (FP) PO SCH (21:15)
[2022-04-15] MEDS: ATORVASTATIN CA 40 MG TABLET (FP) PO SCH (21:15)
[2022-04-16] MEDS: INSULIN SLIDING SCALE (NOVOLOG) 1 VIAL SQ SCH ×2 (06:48→16:41)
[2022-04-16] MEDS: metFORMIN HCL 500 MG TABLET (FP) PO SCH ×2 (06:49→16:41)
[2022-04-16] MEDS: PATIENT'S OWN MEDICATION (NON-FORMULARY) (Dapagliflozin Propanediol [Farxiga] 10 MG Tablet PO SCH (06:49)
[2022-04-16] MEDS: sitaGLIPtin PHOSPHATE 50 MG TABLET PO SCH ×2 (06:49→16:41)
[2022-04-16] MEDS: LOPERAMIDE HCL 2 MG CAPSULE PO PRN (06:51)
[2022-04-16] MEDS: PRENATAL VITAMINS W/ FOLIC ACID TABLET (FP) PO SCH (09:49)
[2022-04-16] MEDS: FAMOTIDINE 20 MG TABLET PO SCH ×2 (09:49→21:21)
[2022-04-16] MEDS: ASPIRIN 81 MG CHEWABLE TABLETS PO SCH (09:49)
[2022-04-16] MEDS: PANTOPRAZOLE 40 MG TABLET PO SCH (09:49)
[2022-04-16] MEDS: amLODIPine BESYLATE 5 MG TABLET (FP) PO SCH (09:49)
[2022-04-16] MEDS: LISINOPRIL 5 MG TABLET PO SCH (09:49)
[2022-04-16] MEDS: NICOTINE 7 MG/24 HOURS TOPICAL PATCH TD SCH (09:50)
[2022-04-16] MEDS: MELATONIN 5 MG TABLETS PO SCH (21:20)
[2022-04-16] MEDS: THIAMINE HCL 100 MG TABLET (FP) PO SCH (21:20)
[2022-04-16] MEDS: MIRTAZAPINE 15 MG TABLET (FP) PO SCH (21:21)
[2022-04-16] MEDS: ATORVASTATIN CA 40 MG TABLET (FP) PO SCH (21:21)
[2022-04-17] MEDS: metFORMIN HCL 500 MG TABLET (FP) PO SCH ×2 (06:19→16:55)
[2022-04-17] MEDS: sitaGLIPtin PHOSPHATE 50 MG TABLET PO SCH ×2 (06:19→16:55)
[2022-04-17] MEDS: INSULIN SLIDING SCALE (NOVOLOG) 1 VIAL SQ SCH ×2 (06:20→16:56)
[2022-04-17] MEDS: PATIENT'S OWN MEDICATION (NON-FORMULARY) (Dapagliflozin Propanediol [Farxiga] 10 MG Tablet PO SCH (06:20)
[2022-04-17] MEDS: NICOTINE 7 MG/24 HOURS TOPICAL PATCH TD SCH (09:45)
[2022-04-17] MEDS: PANTOPRAZOLE 40 MG TABLET PO SCH (09:45)
[2022-04-17] MEDS: LISINOPRIL 5 MG TABLET PO SCH (09:45)
[2022-04-17] MEDS: ASPIRIN 81 MG CHEWABLE TABLETS PO SCH (09:45)
[2022-04-17] MEDS: FAMOTIDINE 20 MG TABLET PO SCH ×2 (09:45→21:42)
[2022-04-17] MEDS: amLODIPine BESYLATE 5 MG TABLET (FP) PO SCH (09:46)
[2022-04-17] MEDS: PRENATAL VITAMINS W/ FOLIC ACID TABLET (FP) PO SCH (09:46)
[2022-04-17] MEDS: ATORVASTATIN CA 40 MG TABLET (FP) PO SCH (21:42)
[2022-04-17] MEDS: THIAMINE HCL 100 MG TABLET (FP) PO SCH (21:42)
[2022-04-17] MEDS: MELATONIN 5 MG TABLETS PO SCH (21:43)
[2022-04-17] MEDS: MIRTAZAPINE 15 MG TABLET (FP) PO SCH (21:43)
[2022-04-18] MEDS: metFORMIN HCL 500 MG TABLET (FP) PO SCH ×2 (06:31→16:57)
[2022-04-18] MEDS: sitaGLIPtin PHOSPHATE 50 MG TABLET PO SCH ×2 (06:32→16:57)
[2022-04-18] MEDS: PATIENT'S OWN MEDICATION (NON-FORMULARY) (Dapagliflozin Propanediol [Farxiga] 10 MG Tablet PO SCH (06:32)
[2022-04-18] MEDS: INSULIN SLIDING SCALE (NOVOLOG) 1 VIAL SQ SCH ×2 (06:33→16:58)
[2022-04-18] MEDS: amLODIPine BESYLATE 5 MG TABLET (FP) PO SCH (10:08)
[2022-04-18] MEDS: NICOTINE 7 MG/24 HOURS TOPICAL PATCH TD SCH (10:08)
[2022-04-18] MEDS: FAMOTIDINE 20 MG TABLET PO SCH ×2 (10:09→21:37)
[2022-04-18] MEDS: PANTOPRAZOLE 40 MG TABLET PO SCH (10:09)
[2022-04-18] MEDS: PRENATAL VITAMINS W/ FOLIC ACID TABLET (FP) PO SCH (10:09)
[2022-04-18] MEDS: ASPIRIN 81 MG CHEWABLE TABLETS PO SCH (10:09)
[2022-04-18] MEDS: LISINOPRIL 5 MG TABLET PO SCH (10:09)
[2022-04-18] MEDS: THIAMINE HCL 100 MG TABLET (FP) PO SCH (21:37)
[2022-04-18] MEDS: ATORVASTATIN CA 40 MG TABLET (FP) PO SCH (21:37)
[2022-04-18] MEDS: MELATONIN 5 MG TABLETS PO SCH (21:37)
[2022-04-18] MEDS: MIRTAZAPINE 15 MG TABLET (FP) PO SCH (21:37)
[2022-04-19] MEDS: PATIENT'S OWN MEDICATION (NON-FORMULARY) (Dapagliflozin Propanediol [Farxiga] 10 MG Tablet PO SCH (06:30)
[2022-04-19] MEDS: INSULIN SLIDING SCALE (NOVOLOG) 1 VIAL SQ SCH ×2 (06:31→16:38)
[2022-04-19] MEDS: sitaGLIPtin PHOSPHATE 50 MG TABLET PO SCH ×2 (06:31→16:38)
[2022-04-19] MEDS: metFORMIN HCL 500 MG TABLET (FP) PO SCH ×2 (06:31→16:37)
[2022-04-19] MEDS: ASPIRIN 81 MG CHEWABLE TABLETS PO SCH (09:34)
[2022-04-19] MEDS: LISINOPRIL 5 MG TABLET PO SCH (09:34)
[2022-04-19] MEDS: FAMOTIDINE 20 MG TABLET PO SCH ×2 (09:34→21:23)
[2022-04-19] MEDS: PRENATAL VITAMINS W/ FOLIC ACID TABLET (FP) PO SCH (09:34)
[2022-04-19] MEDS: PANTOPRAZOLE 40 MG TABLET PO SCH (09:35)
[2022-04-19] MEDS: NICOTINE 7 MG/24 HOURS TOPICAL PATCH TD SCH (09:35)
[2022-04-19] MEDS: amLODIPine BESYLATE 10 MG TABLET (FP) PO SCH (10:18)
[2022-04-19] MEDS: MELATONIN 5 MG TABLETS PO SCH (21:22)
[2022-04-19] MEDS: THIAMINE HCL 100 MG TABLET (FP) PO SCH (21:22)
[2022-04-19] MEDS: ATORVASTATIN CA 40 MG TABLET (FP) PO SCH (21:23)
[2022-04-19] MEDS: MIRTAZAPINE 15 MG TABLET (FP) PO SCH (21:23)
[2022-04-20] MEDS: sitaGLIPtin PHOSPHATE 50 MG TABLET PO SCH ×2 (06:53→16:37)
[2022-04-20] MEDS: metFORMIN HCL 500 MG TABLET (FP) PO SCH ×2 (06:53→16:37)
[2022-04-20] MEDS: PATIENT'S OWN MEDICATION (NON-FORMULARY) (Dapagliflozin Propanediol [Farxiga] 10 MG Tablet PO SCH (06:54)
[2022-04-20] MEDS: INSULIN SLIDING SCALE (NOVOLOG) 1 VIAL SQ SCH ×2 (07:16→16:37)
[2022-04-20] MEDS: PRENATAL VITAMINS W/ FOLIC ACID TABLET (FP) PO SCH (10:15)
[2022-04-20] MEDS: ASPIRIN 81 MG CHEWABLE TABLETS PO SCH (10:15)
[2022-04-20] MEDS: NICOTINE 7 MG/24 HOURS TOPICAL PATCH TD SCH (10:15)
[2022-04-20] MEDS: LISINOPRIL 5 MG TABLET PO SCH (10:16)
[2022-04-20] MEDS: FAMOTIDINE 20 MG TABLET PO SCH ×2 (10:16→21:39)
[2022-04-20] MEDS: PANTOPRAZOLE 40 MG TABLET PO SCH (10:16)
[2022-04-20] MEDS: amLODIPine BESYLATE 10 MG TABLET (FP) PO SCH (10:16)
[2022-04-20] MEDS: MELATONIN 5 MG TABLETS PO SCH (21:39)
[2022-04-20] MEDS: MIRTAZAPINE 15 MG TABLET (FP) PO SCH (21:39)
[2022-04-20] MEDS: ATORVASTATIN CA 40 MG TABLET (FP) PO SCH (21:39)
[2022-04-20] MEDS: THIAMINE HCL 100 MG TABLET (FP) PO SCH (21:39)
[2022-04-21] MEDS: metFORMIN HCL 500 MG TABLET (FP) PO SCH ×2 (06:35→16:32)
[2022-04-21] MEDS: PATIENT'S OWN MEDICATION (NON-FORMULARY) (Dapagliflozin Propanediol [Farxiga] 10 MG Tablet PO SCH (06:36)
[2022-04-21] MEDS: sitaGLIPtin PHOSPHATE 50 MG TABLET PO SCH ×2 (06:36→16:32)
[2022-04-21] MEDS: INSULIN SLIDING SCALE (NOVOLOG) 1 VIAL SQ SCH ×2 (06:36→16:32)
[2022-04-21] MEDS: NICOTINE 7 MG/24 HOURS TOPICAL PATCH TD SCH (09:45)
[2022-04-21] MEDS: ASPIRIN 81 MG CHEWABLE TABLETS PO SCH (09:45)
[2022-04-21] MEDS: amLODIPine BESYLATE 10 MG TABLET (FP) PO SCH (09:46)
[2022-04-21] MEDS: FAMOTIDINE 20 MG TABLET PO SCH ×2 (09:46→21:36)
[2022-04-21] MEDS: LISINOPRIL 5 MG TABLET PO SCH (09:46)
[2022-04-21] MEDS: PANTOPRAZOLE 40 MG TABLET PO SCH (09:46)
[2022-04-21] MEDS: PRENATAL VITAMINS W/ FOLIC ACID TABLET (FP) PO SCH (09:47)
[2022-04-21] MEDS: MELATONIN 5 MG TABLETS PO SCH (21:35)
[2022-04-21] MEDS: THIAMINE HCL 100 MG TABLET (FP) PO SCH (21:35)
[2022-04-21] MEDS: ATORVASTATIN CA 40 MG TABLET (FP) PO SCH (21:36)
[2022-04-21] MEDS: MIRTAZAPINE 15 MG TABLET (FP) PO SCH (21:36)
[2022-04-22] MEDS: sitaGLIPtin PHOSPHATE 50 MG TABLET PO SCH ×2 (06:43→16:37)
[2022-04-22] MEDS: metFORMIN HCL 500 MG TABLET (FP) PO SCH ×2 (06:43→16:37)
[2022-04-22] MEDS: PATIENT'S OWN MEDICATION (NON-FORMULARY) (Dapagliflozin Propanediol [Farxiga] 10 MG Tablet PO SCH (06:43)
[2022-04-22] MEDS: INSULIN SLIDING SCALE (NOVOLOG) 1 VIAL SQ SCH ×2 (06:58→16:38)
[2022-04-22] MEDS: NICOTINE 7 MG/24 HOURS TOPICAL PATCH TD SCH (09:49)
[2022-04-22] MEDS: LISINOPRIL 5 MG TABLET PO SCH (09:50)
[2022-04-22] MEDS: PANTOPRAZOLE 40 MG TABLET PO SCH (09:50)
[2022-04-22] MEDS: FAMOTIDINE 20 MG TABLET PO SCH ×2 (09:50→21:24)
[2022-04-22] MEDS: PRENATAL VITAMINS W/ FOLIC ACID TABLET (FP) PO SCH (09:50)
[2022-04-22] MEDS: amLODIPine BESYLATE 10 MG TABLET (FP) PO SCH (09:51)
[2022-04-22] MEDS: ASPIRIN 81 MG CHEWABLE TABLETS PO SCH (09:51)
[2022-04-22] MEDS: ATORVASTATIN CA 40 MG TABLET (FP) PO SCH (21:24)
[2022-04-22] MEDS: MELATONIN 5 MG TABLETS PO SCH (21:24)
[2022-04-22] MEDS: MIRTAZAPINE 15 MG TABLET (FP) PO SCH (21:24)
[2022-04-22] MEDS: THIAMINE HCL 100 MG TABLET (FP) PO SCH (21:24)
[2022-04-23] MEDS: metFORMIN HCL 500 MG TABLET (FP) PO SCH ×2 (06:39→17:10)
[2022-04-23] MEDS: sitaGLIPtin PHOSPHATE 50 MG TABLET PO SCH ×2 (06:39→17:13)
[2022-04-23] MEDS: INSULIN SLIDING SCALE (NOVOLOG) 1 VIAL SQ SCH ×2 (07:48→17:15)
[2022-04-23] MEDS: PATIENT'S OWN MEDICATION (NON-FORMULARY) (Dapagliflozin Propanediol [Farxiga] 10 MG Tablet PO SCH (08:28)
[2022-04-23] MEDS: PANTOPRAZOLE 40 MG TABLET PO SCH (09:50)
[2022-04-23] MEDS: FAMOTIDINE 20 MG TABLET PO SCH ×2 (09:50→21:39)
[2022-04-23] MEDS: LISINOPRIL 5 MG TABLET PO SCH (09:50)
[2022-04-23] MEDS: ASPIRIN 81 MG CHEWABLE TABLETS PO SCH (09:50)
[2022-04-23] MEDS: amLODIPine BESYLATE 10 MG TABLET (FP) PO SCH (09:50)
[2022-04-23] MEDS: NICOTINE 7 MG/24 HOURS TOPICAL PATCH TD SCH (09:50)
[2022-04-23] MEDS: PRENATAL VITAMINS W/ FOLIC ACID TABLET (FP) PO SCH (09:50)
[2022-04-23] MEDS: DAPAGLIFLOZIN PROPANEDIOL 5 MG TABLET PO SCH (12:43)
[2022-04-23] MEDS: THIAMINE HCL 100 MG TABLET (FP) PO SCH (21:38)
[2022-04-23] MEDS: MIRTAZAPINE 15 MG TABLET (FP) PO SCH (21:39)
[2022-04-23] MEDS: MELATONIN 5 MG TABLETS PO SCH (21:39)
[2022-04-23] MEDS: ATORVASTATIN CA 40 MG TABLET (FP) PO SCH (21:39)
[2022-04-24] MEDS: metFORMIN HCL 500 MG TABLET (FP) PO SCH ×2 (06:27→16:39)
[2022-04-24] MEDS: sitaGLIPtin PHOSPHATE 50 MG TABLET PO SCH ×2 (06:28→16:39)
[2022-04-24] MEDS: DAPAGLIFLOZIN PROPANEDIOL 5 MG TABLET PO SCH (06:28)
[2022-04-24] MEDS: INSULIN SLIDING SCALE (NOVOLOG) 1 VIAL SQ SCH ×2 (06:47→16:38)
[2022-04-24] MEDS: ASPIRIN 81 MG CHEWABLE TABLETS PO SCH (09:41)
[2022-04-24] MEDS: PANTOPRAZOLE 40 MG TABLET PO SCH (09:42)
[2022-04-24] MEDS: amLODIPine BESYLATE 10 MG TABLET (FP) PO SCH (09:42)
[2022-04-24] MEDS: FAMOTIDINE 20 MG TABLET PO SCH ×2 (09:42→21:35)
[2022-04-24] MEDS: LISINOPRIL 5 MG TABLET PO SCH (09:42)
[2022-04-24] MEDS: PRENATAL VITAMINS W/ FOLIC ACID TABLET (FP) PO SCH (09:43)
[2022-04-24] MEDS: NICOTINE 7 MG/24 HOURS TOPICAL PATCH TD SCH (09:43)
[2022-04-24] MEDS: MIRTAZAPINE 15 MG TABLET (FP) PO SCH (21:35)
[2022-04-24] MEDS: ATORVASTATIN CA 40 MG TABLET (FP) PO SCH (21:35)
[2022-04-24] MEDS: MELATONIN 5 MG TABLETS PO SCH (21:35)
[2022-04-24] MEDS: THIAMINE HCL 100 MG TABLET (FP) PO SCH (21:35)
[2022-04-25] MEDS: MAG HYDROX/AL HYDROX/SIMETH 30 ML UNIT-DOSE CUP PO PRN (06:29)
[2022-04-25] MEDS: metFORMIN HCL 500 MG TABLET (FP) PO SCH ×2 (06:29→16:52)
[2022-04-25] MEDS: sitaGLIPtin PHOSPHATE 50 MG TABLET PO SCH ×2 (06:29→16:52)
[2022-04-25] MEDS: INSULIN SLIDING SCALE (NOVOLOG) 1 VIAL SQ SCH ×2 (06:55→16:52)
[2022-04-25] MEDS: DAPAGLIFLOZIN PROPANEDIOL 5 MG TABLET PO SCH (06:56)
[2022-04-25] MEDS: PRENATAL VITAMINS W/ FOLIC ACID TABLET (FP) PO SCH (09:54)
[2022-04-25] MEDS: ASPIRIN 81 MG CHEWABLE TABLETS PO SCH (09:55)
[2022-04-25] MEDS: LISINOPRIL 5 MG TABLET PO SCH (09:55)
[2022-04-25] MEDS: FAMOTIDINE 20 MG TABLET PO SCH ×2 (09:55→21:29)
[2022-04-25] MEDS: amLODIPine BESYLATE 10 MG TABLET (FP) PO SCH (09:55)
[2022-04-25] MEDS: PANTOPRAZOLE 40 MG TABLET PO SCH (09:55)
[2022-04-25] MEDS: NICOTINE 7 MG/24 HOURS TOPICAL PATCH TD SCH (09:56)
[2022-04-25] MEDS: MIRTAZAPINE 15 MG TABLET (FP) PO SCH (21:29)
[2022-04-25] MEDS: MELATONIN 5 MG TABLETS PO SCH (21:29)
[2022-04-25] MEDS: THIAMINE HCL 100 MG TABLET (FP) PO SCH (21:29)
[2022-04-25] MEDS: ATORVASTATIN CA 40 MG TABLET (FP) PO SCH (21:29)
[2022-04-26] MEDS: metFORMIN HCL 500 MG TABLET (FP) PO SCH ×2 (06:31→16:28)
[2022-04-26] MEDS: INSULIN SLIDING SCALE (NOVOLOG) 1 VIAL SQ SCH ×2 (06:31→16:29)
[2022-04-26] MEDS: sitaGLIPtin PHOSPHATE 50 MG TABLET PO SCH ×2 (10:11→16:28)
[2022-04-26] MEDS: DAPAGLIFLOZIN PROPANEDIOL 5 MG TABLET PO SCH (10:11)
[2022-04-26] MEDS: LISINOPRIL 5 MG TABLET PO SCH (10:12)
[2022-04-26] MEDS: FAMOTIDINE 20 MG TABLET PO SCH ×2 (10:12→21:11)
[2022-04-26] MEDS: ASPIRIN 81 MG CHEWABLE TABLETS PO SCH (10:12)
[2022-04-26] MEDS: PANTOPRAZOLE 40 MG TABLET PO SCH (10:13)
[2022-04-26] MEDS: amLODIPine BESYLATE 10 MG TABLET (FP) PO SCH (10:13)
[2022-04-26] MEDS: NICOTINE 7 MG/24 HOURS TOPICAL PATCH TD SCH (10:13)
[2022-04-26] MEDS: PRENATAL VITAMINS W/ FOLIC ACID TABLET (FP) PO SCH (10:13)
[2022-04-26] MEDS: SIMETHICONE 80 MG TAB.CHEW (FP) PO SCH ×3 (14:20→21:11)
[2022-04-26] MEDS: THIAMINE HCL 100 MG TABLET (FP) PO SCH (21:10)
[2022-04-26] MEDS: MELATONIN 5 MG TABLETS PO SCH (21:10)
[2022-04-26] MEDS: MIRTAZAPINE 15 MG TABLET (FP) PO SCH (21:11)
[2022-04-26] MEDS: ATORVASTATIN CA 40 MG TABLET (FP) PO SCH (21:11)
[2022-04-27] MEDS: DAPAGLIFLOZIN PROPANEDIOL 5 MG TABLET PO SCH (06:28)
[2022-04-27] MEDS: sitaGLIPtin PHOSPHATE 50 MG TABLET PO SCH ×2 (06:28→16:40)
[2022-04-27] MEDS: metFORMIN HCL 500 MG TABLET (FP) PO SCH ×2 (06:28→16:40)
[2022-04-27] MEDS: INSULIN SLIDING SCALE (NOVOLOG) 1 VIAL SQ SCH ×2 (06:41→16:40)
[2022-04-27] MEDS: SIMETHICONE 80 MG TAB.CHEW (FP) PO SCH ×4 (09:53→21:29)
[2022-04-27] MEDS: NICOTINE 7 MG/24 HOURS TOPICAL PATCH TD SCH (09:53)
[2022-04-27] MEDS: ASPIRIN 81 MG CHEWABLE TABLETS PO SCH (09:53)
[2022-04-27] MEDS: PRENATAL VITAMINS W/ FOLIC ACID TABLET (FP) PO SCH (09:54)
[2022-04-27] MEDS: amLODIPine BESYLATE 10 MG TABLET (FP) PO SCH (09:54)
[2022-04-27] MEDS: LISINOPRIL 5 MG TABLET PO SCH (09:54)
[2022-04-27] MEDS: FAMOTIDINE 20 MG TABLET PO SCH ×2 (09:54→21:29)
[2022-04-27] MEDS: ATORVASTATIN CA 40 MG TABLET (FP) PO SCH (21:29)
[2022-04-27] MEDS: THIAMINE HCL 100 MG TABLET (FP) PO SCH (21:29)
[2022-04-27] MEDS: MELATONIN 5 MG TABLETS PO SCH (21:29)
[2022-04-27] MEDS: MIRTAZAPINE 15 MG TABLET (FP) PO SCH (21:29)
[2022-04-28] MEDS: DAPAGLIFLOZIN PROPANEDIOL 5 MG TABLET PO SCH (06:16)
[2022-04-28] MEDS: metFORMIN HCL 500 MG TABLET (FP) PO SCH ×2 (06:16→16:42)
[2022-04-28] MEDS: sitaGLIPtin PHOSPHATE 50 MG TABLET PO SCH ×2 (06:16→16:42)
[2022-04-28] MEDS: INSULIN SLIDING SCALE (NOVOLOG) 1 VIAL SQ SCH ×2 (06:41→16:44)
[2022-04-28] MEDS: NICOTINE 7 MG/24 HOURS TOPICAL PATCH TD SCH (09:48)
[2022-04-28] MEDS: ASPIRIN 81 MG CHEWABLE TABLETS PO SCH (09:48)
[2022-04-28] MEDS: FAMOTIDINE 20 MG TABLET PO SCH ×2 (09:49→21:25)
[2022-04-28] MEDS: LISINOPRIL 5 MG TABLET PO SCH (09:49)
[2022-04-28] MEDS: SIMETHICONE 80 MG TAB.CHEW (FP) PO SCH ×4 (09:49→21:25)
[2022-04-28] MEDS: PRENATAL VITAMINS W/ FOLIC ACID TABLET (FP) PO SCH (09:49)
[2022-04-28] MEDS: amLODIPine BESYLATE 10 MG TABLET (FP) PO SCH (09:49)
[2022-04-28] MEDS: THIAMINE HCL 100 MG TABLET (FP) PO SCH (21:25)
[2022-04-28] MEDS: ATORVASTATIN CA 40 MG TABLET (FP) PO SCH (21:25)
[2022-04-28] MEDS: MELATONIN 5 MG TABLETS PO SCH (21:25)
[2022-04-28] MEDS: MIRTAZAPINE 15 MG TABLET (FP) PO SCH (21:25)
[2022-04-29] MEDS: metFORMIN HCL 500 MG TABLET (FP) PO SCH ×2 (06:46→16:38)
[2022-04-29] MEDS: DAPAGLIFLOZIN PROPANEDIOL 5 MG TABLET PO SCH (06:46)
[2022-04-29] MEDS: sitaGLIPtin PHOSPHATE 50 MG TABLET PO SCH ×2 (06:46→16:38)
[2022-04-29] MEDS: INSULIN SLIDING SCALE (NOVOLOG) 1 VIAL SQ SCH ×2 (07:25→16:38)
[2022-04-29] MEDS: FAMOTIDINE 20 MG TABLET PO SCH ×2 (09:55→21:29)
[2022-04-29] MEDS: ASPIRIN 81 MG CHEWABLE TABLETS PO SCH (09:55)
[2022-04-29] MEDS: amLODIPine BESYLATE 10 MG TABLET (FP) PO SCH (09:55)
[2022-04-29] MEDS: PRENATAL VITAMINS W/ FOLIC ACID TABLET (FP) PO SCH (09:55)
[2022-04-29] MEDS: SIMETHICONE 80 MG TAB.CHEW (FP) PO SCH ×4 (09:55→21:29)
[2022-04-29] MEDS: NICOTINE 7 MG/24 HOURS TOPICAL PATCH TD SCH (09:55)
[2022-04-29] MEDS: LISINOPRIL 5 MG TABLET PO SCH (09:55)
[2022-04-29] MEDS: THIAMINE HCL 100 MG TABLET (FP) PO SCH (21:29)
[2022-04-29] MEDS: MIRTAZAPINE 15 MG TABLET (FP) PO SCH (21:29)
[2022-04-29] MEDS: ATORVASTATIN CA 40 MG TABLET (FP) PO SCH (21:29)
[2022-04-29] MEDS: MELATONIN 5 MG TABLETS PO SCH (21:29)
[2022-04-30] MEDS: metFORMIN HCL 500 MG TABLET (FP) PO SCH ×2 (06:48→17:39)
[2022-04-30] MEDS: sitaGLIPtin PHOSPHATE 50 MG TABLET PO SCH ×2 (06:48→17:39)
[2022-04-30] MEDS: DAPAGLIFLOZIN PROPANEDIOL 5 MG TABLET PO SCH (06:49)
[2022-04-30] MEDS: INSULIN SLIDING SCALE (NOVOLOG) 1 VIAL SQ SCH ×2 (07:00→17:09)
[2022-04-30] MEDS: NICOTINE 7 MG/24 HOURS TOPICAL PATCH TD SCH (09:55)
[2022-04-30] MEDS: SIMETHICONE 80 MG TAB.CHEW (FP) PO SCH ×4 (09:56→22:00)
[2022-04-30] MEDS: ASPIRIN 81 MG CHEWABLE TABLETS PO SCH (09:56)
[2022-04-30] MEDS: FAMOTIDINE 20 MG TABLET PO SCH ×2 (09:57→22:00)
[2022-04-30] MEDS: LISINOPRIL 5 MG TABLET PO SCH (09:57)
[2022-04-30] MEDS: amLODIPine BESYLATE 10 MG TABLET (FP) PO SCH (09:57)
[2022-04-30] MEDS: PRENATAL VITAMINS W/ FOLIC ACID TABLET (FP) PO SCH (09:57)
[2022-04-30] MEDS: MELATONIN 5 MG TABLETS PO SCH (21:59)
[2022-04-30] MEDS: MIRTAZAPINE 15 MG TABLET (FP) PO SCH (22:00)
[2022-04-30] MEDS: ATORVASTATIN CA 40 MG TABLET (FP) PO SCH (22:00)
[2022-04-30] MEDS: THIAMINE HCL 100 MG TABLET (FP) PO SCH (22:00)
[2022-05-01] MEDS: metFORMIN HCL 500 MG TABLET (FP) PO SCH ×2 (06:35→18:35)
[2022-05-01] MEDS: DAPAGLIFLOZIN PROPANEDIOL 10 MG TABLET PO SCH (06:35)
[2022-05-01] MEDS: sitaGLIPtin PHOSPHATE 50 MG TABLET PO SCH ×2 (06:36→18:35)
[2022-05-01] MEDS: INSULIN SLIDING SCALE (NOVOLOG) 1 VIAL SQ SCH ×2 (07:17→17:23)
[2022-05-01] MEDS: ASPIRIN 81 MG CHEWABLE TABLETS PO SCH (09:51)
[2022-05-01] MEDS: FAMOTIDINE 20 MG TABLET PO SCH ×2 (09:51→21:12)
[2022-05-01] MEDS: LISINOPRIL 5 MG TABLET PO SCH (09:51)
[2022-05-01] MEDS: amLODIPine BESYLATE 10 MG TABLET (FP) PO SCH (09:52)
[2022-05-01] MEDS: PRENATAL VITAMINS W/ FOLIC ACID TABLET (FP) PO SCH (09:52)
[2022-05-01] MEDS: SIMETHICONE 80 MG TAB.CHEW (FP) PO SCH ×4 (09:53→21:14)
[2022-05-01] MEDS: NICOTINE 7 MG/24 HOURS TOPICAL PATCH TD SCH (09:53)
[2022-05-01] MEDS: NICOTINE 10 MG CARTRIDGE (INHALER) IH PRN (17:06)
[2022-05-01] MEDS: ATORVASTATIN CA 40 MG TABLET (FP) PO SCH (21:12)
[2022-05-01] MEDS: THIAMINE HCL 100 MG TABLET (FP) PO SCH (21:12)
[2022-05-01] MEDS: MIRTAZAPINE 15 MG TABLET (FP) PO SCH (21:12)
[2022-05-01] MEDS: MELATONIN 5 MG TABLETS PO SCH (21:12)
[2022-05-02] MEDS: metFORMIN HCL 500 MG TABLET (FP) PO SCH ×2 (06:32→16:42)
[2022-05-02] MEDS: DAPAGLIFLOZIN PROPANEDIOL 10 MG TABLET PO SCH (06:33)
[2022-05-02] MEDS: sitaGLIPtin PHOSPHATE 50 MG TABLET PO SCH ×2 (06:33→16:42)
[2022-05-02] MEDS: INSULIN SLIDING SCALE (NOVOLOG) 1 VIAL SQ SCH ×2 (07:21→16:43)
[2022-05-02] MEDS: FAMOTIDINE 20 MG TABLET PO SCH ×2 (09:47→21:26)
[2022-05-02] MEDS: LISINOPRIL 5 MG TABLET PO SCH (09:47)
[2022-05-02] MEDS: ASPIRIN 81 MG CHEWABLE TABLETS PO SCH (09:48)
[2022-05-02] MEDS: amLODIPine BESYLATE 10 MG TABLET (FP) PO SCH (09:48)
[2022-05-02] MEDS: PRENATAL VITAMINS W/ FOLIC ACID TABLET (FP) PO SCH (09:48)
[2022-05-02] MEDS: NICOTINE 7 MG/24 HOURS TOPICAL PATCH TD SCH (09:49)
[2022-05-02] MEDS: SIMETHICONE 80 MG TAB.CHEW (FP) PO SCH ×4 (09:49→21:27)
[2022-05-02] MEDS: ATORVASTATIN CA 40 MG TABLET (FP) PO SCH (21:26)
[2022-05-02] MEDS: THIAMINE HCL 100 MG TABLET (FP) PO SCH (21:26)
[2022-05-02] MEDS: MIRTAZAPINE 15 MG TABLET (FP) PO SCH (21:26)
[2022-05-02] MEDS: MELATONIN 5 MG TABLETS PO SCH (21:26)
[2022-05-03] MEDS: sitaGLIPtin PHOSPHATE 50 MG TABLET PO SCH ×2 (06:26→16:32)
[2022-05-03] MEDS: DAPAGLIFLOZIN PROPANEDIOL 10 MG TABLET PO SCH (06:26)
[2022-05-03] MEDS: metFORMIN HCL 500 MG TABLET (FP) PO SCH ×2 (06:26→16:32)
[2022-05-03] MEDS: INSULIN SLIDING SCALE (NOVOLOG) 1 VIAL SQ SCH ×2 (06:54→16:33)
[2022-05-03] MEDS: ASPIRIN 81 MG CHEWABLE TABLETS PO SCH (09:58)
[2022-05-03] MEDS: NICOTINE 7 MG/24 HOURS TOPICAL PATCH TD SCH (09:59)
[2022-05-03] MEDS: SIMETHICONE 80 MG TAB.CHEW (FP) PO SCH ×4 (09:59→21:18)
[2022-05-03] MEDS: FAMOTIDINE 20 MG TABLET PO SCH ×2 (09:59→21:18)
[2022-05-03] MEDS: PRENATAL VITAMINS W/ FOLIC ACID TABLET (FP) PO SCH (10:00)
[2022-05-03] MEDS: LISINOPRIL 5 MG TABLET PO SCH (10:18)
[2022-05-03] MEDS: amLODIPine BESYLATE 10 MG TABLET (FP) PO SCH (10:18)
[2022-05-03] MEDS: THIAMINE HCL 100 MG TABLET (FP) PO SCH (21:17)
[2022-05-03] MEDS: MIRTAZAPINE 15 MG TABLET (FP) PO SCH (21:18)
[2022-05-03] MEDS: ATORVASTATIN CA 40 MG TABLET (FP) PO SCH (21:18)
[2022-05-03] MEDS: MELATONIN 5 MG TABLETS PO SCH (21:18)
[2022-05-04] MEDS: sitaGLIPtin PHOSPHATE 50 MG TABLET PO SCH ×2 (06:49→16:42)
[2022-05-04] MEDS: metFORMIN HCL 500 MG TABLET (FP) PO SCH ×2 (06:49→16:42)
[2022-05-04] MEDS: DAPAGLIFLOZIN PROPANEDIOL 10 MG TABLET PO SCH (06:50)
[2022-05-04] MEDS: INSULIN SLIDING SCALE (NOVOLOG) 1 VIAL SQ SCH ×2 (06:53→16:43)
[2022-05-04] MEDS: SIMETHICONE 80 MG TAB.CHEW (FP) PO SCH ×4 (09:54→21:18)
[2022-05-04] MEDS: ASPIRIN 81 MG CHEWABLE TABLETS PO SCH (09:54)
[2022-05-04] MEDS: NICOTINE 7 MG/24 HOURS TOPICAL PATCH TD SCH (09:55)
[2022-05-04] MEDS: amLODIPine BESYLATE 10 MG TABLET (FP) PO SCH (09:55)
[2022-05-04] MEDS: LISINOPRIL 5 MG TABLET PO SCH (09:55)
[2022-05-04] MEDS: PRENATAL VITAMINS W/ FOLIC ACID TABLET (FP) PO SCH (09:56)
[2022-05-04] MEDS: FAMOTIDINE 20 MG TABLET PO SCH ×2 (09:56→21:18)
[2022-05-04] MEDS: THIAMINE HCL 100 MG TABLET (FP) PO SCH (21:17)
[2022-05-04] MEDS: MELATONIN 5 MG TABLETS PO SCH (21:17)
[2022-05-04] MEDS: MIRTAZAPINE 15 MG TABLET (FP) PO SCH (21:18)
[2022-05-04] MEDS: ATORVASTATIN CA 40 MG TABLET (FP) PO SCH (21:18)
[2022-05-05] MEDS: metFORMIN HCL 500 MG TABLET (FP) PO SCH ×2 (06:31→16:43)
[2022-05-05] MEDS: DAPAGLIFLOZIN PROPANEDIOL 10 MG TABLET PO SCH (06:31)
[2022-05-05] MEDS: sitaGLIPtin PHOSPHATE 50 MG TABLET PO SCH ×2 (06:31→16:44)
[2022-05-05] MEDS: INSULIN SLIDING SCALE (NOVOLOG) 1 VIAL SQ SCH ×2 (06:50→16:44)
[2022-05-05] MEDS: SIMETHICONE 80 MG TAB.CHEW (FP) PO SCH ×4 (09:46→21:40)
[2022-05-05] MEDS: ASPIRIN 81 MG CHEWABLE TABLETS PO SCH (09:46)
[2022-05-05] MEDS: NICOTINE 7 MG/24 HOURS TOPICAL PATCH TD SCH (09:46)
[2022-05-05] MEDS: LISINOPRIL 5 MG TABLET PO SCH (09:46)
[2022-05-05] MEDS: FAMOTIDINE 20 MG TABLET PO SCH ×2 (09:47→21:40)
[2022-05-05] MEDS: amLODIPine BESYLATE 10 MG TABLET (FP) PO SCH (09:47)
[2022-05-05] MEDS: PRENATAL VITAMINS W/ FOLIC ACID TABLET (FP) PO SCH (09:47)
[2022-05-05] MEDS: ATORVASTATIN CA 40 MG TABLET (FP) PO SCH (21:40)
[2022-05-05] MEDS: THIAMINE HCL 100 MG TABLET (FP) PO SCH (21:40)
[2022-05-05] MEDS: MELATONIN 5 MG TABLETS PO SCH (21:40)
[2022-05-05] MEDS: MIRTAZAPINE 15 MG TABLET (FP) PO SCH (21:40)
[2022-05-06 06:37] VITALS: TEMP 98.6
[2022-05-06] MEDS: sitaGLIPtin PHOSPHATE 50 MG TABLET PO SCH (07:25)
[2022-05-06] MEDS: metFORMIN HCL 500 MG TABLET (FP) PO SCH (07:25)
[2022-05-06] MEDS: DAPAGLIFLOZIN PROPANEDIOL 10 MG TABLET PO SCH (07:26)
[2022-05-06] MEDS: INSULIN SLIDING SCALE (NOVOLOG) 1 VIAL SQ SCH (07:32)
[2022-05-06 08:46] VITALS: BP 110/75; PULSE 124
[2022-05-06] MEDS: amLODIPine BESYLATE 10 MG TABLET (FP) PO SCH (09:09)
[2022-05-06] MEDS: ASPIRIN 81 MG CHEWABLE TABLETS PO SCH (09:09)
[2022-05-06] MEDS: FAMOTIDINE 20 MG TABLET PO SCH (09:09)
[2022-05-06] MEDS: PRENATAL VITAMINS W/ FOLIC ACID TABLET (FP) PO SCH (09:09)
[2022-05-06] MEDS: NICOTINE 7 MG/24 HOURS TOPICAL PATCH TD SCH (09:10)
[2022-05-06] MEDS: LISINOPRIL 5 MG TABLET PO SCH (09:10)
[2022-05-06] MEDS: SIMETHICONE 80 MG TAB.CHEW (FP) PO SCH (09:11)
== END 2022-05-06 09:36 | disposition home or self-care (01) | DRG 895 ==
LOC: YASAS 13:12 → Y3E 19:27
PROVIDERS: ADMIT Allergy & Immunology; ATTEND Psychiatry & Neurology Pain Medicine
PROC: HZ42ZZZ Group Counseling for Substance Abuse Treatment, Cognitive-Behavioral (ICD-10-PCS; principal; 2022-04-08)
DX: F10.20 Alcohol dependence, uncomplicated (principal); F17.210 Nicotine dependence, cigarettes, uncomplicated; F31.9 Bipolar disorder, unspecified; F19.24 Other psychoactive substance dependence with psychoactive substance-induced mood disorder; G62.9 Polyneuropathy, unspecified; I10 Essential (primary) hypertension; E11.9 Type 2 diabetes mellitus without complications; Z79.84 Long term (current) use of oral hypoglycemic drugs; K30 Functional dyspepsia; B18.2 Chronic viral hepatitis C; Z87.438 Personal history of other diseases of male genital organs; A60.00 Herpesviral infection of urogenital system, unspecified; R00.0 Tachycardia, unspecified; Z62.810 Personal history of physical and sexual abuse in childhood; Z86.19 Personal history of other infectious and parasitic diseases; Z28.310 Unvaccinated for COVID-19
CPT/HCPCS: 36415; 80053; 81003; 82962; 85027; 86780; 93005; 93010; C9803-CS; U0003; U0005

== ENCOUNTER 2022-05-18 15:24 | Emergency (ER) | payer OTHER ==
[2022-05-18 16:15] VITALS: TEMP 98.6; BMI 26.2
[2022-05-18 18:07] VITALS: BP 148/87; PULSE 104
[2022-05-18] MEDS ORDERED: SODIUM CHLORIDE 0.9% 500 ML INFUS.BAG IV ONE (19:31)
[2022-05-18 20:08] LABS: BASO % 1.1 % (0-2.0); EOS % 2.2 % (0-4.5); HEMATOCRIT 33.7 % (35.4-49); LYMPH % 30.8 % (8-40); MCH 29.8 pg (25.7-33.7); MCHC 32.6 g/dl (32.0-35.9); MEAN CELL VOLUME 91.3 fl (80-96); MEAN PLT VOLUME 9.3 fl (7.5-11.1); MONO % 13.9 % (3.8-10.2); PLATELET COUNT 150 10^3/uL (134-434); RBC 3.69 M/mm3 (4.00-5.60); RDW 14.9 % (11.9-15.9); WHITE BLOOD COUNT 5.2 K/mm3 (4.0-10.0)
[2022-05-18 20:09] LABS: URINE APPEARANCE CLEAR; URINE BILIRUBIN 1+ (NEGATIVE); URINE COLOR DK YELLOW; URINE GLUCOSE (UA) 3+ (NEGATIVE); URINE KETONE TRACE (NEGATIVE); URINE LEUK ESTERASE NEGATIVE (NEGATIVE); URINE NITRITE NEGATIVE (NEGATIVE); URINE PROTEIN NEGATIVE (NEGATIVE); URINE UROBILINOGEN 4.0 E.U/dl mg/dL (0.2-1.0)
[2022-05-18 20:34] LABS: CALCIUM 8.8 mg/dL (8.5-10.1)
[2022-05-18 20:38] LABS: CREATININE 0.7 mg/dL (0.55-1.3)
[2022-05-18 20:39] LABS: BILIRUBIN,TOTAL 2.1 mg/dL (0.2-1); TOT PROT 7.2 g/dl (6.4-8.2)
== END 2022-05-18 22:27 | disposition home or self-care (01) ==
LOC: JER 15:24
DX: E11.65 Type 2 diabetes mellitus with hyperglycemia (principal); R74.01 Elevation of levels of liver transaminase levels
CPT/HCPCS: 36415; 80053; 81003; 82962; 85025; 87086; 93005; 93010; 99284-25

== ENCOUNTER 2022-07-10 13:02 | Inpatient (IN) | payer OTHER ==
[2022-07-10 15:38] LABS: BASO % 0.9 % (0-2.0); EOS % 0.8 % (0-4.5); HEMATOCRIT 38.1 % (35.4-49); HEMOGLOBIN 12.4 GM/dL (11.7-16.9); LYMPH % 37.8 % (8-40); MCH 29.3 pg (25.7-33.7); MCHC 32.6 g/dl (32.0-35.9); MEAN CELL VOLUME 89.9 fl (80-96); MEAN PLT VOLUME 9.8 fl (7.5-11.1); MONO % 9.9 % (3.8-10.2); NEUT % 50.6 % (42.8-82.8); PLATELET COUNT 124 10^3/uL (134-434); RBC 4.23 M/mm3 (4.00-5.60); RDW 14.7 % (11.9-15.9); WHITE BLOOD COUNT 5.5 K/mm3 (4.0-10.0)
[2022-07-10 16:03] LABS: CHLORIDE 104 mmol/L (98-107); SODIUM 132 mmol/L (136-145)
[2022-07-10 16:04] LABS: CALCIUM 8.8 mg/dL (8.5-10.1)
[2022-07-10 16:06] LABS: ALBUMIN 2.7 g/dl (3.4-5.0); BLOOD UREA NITROGEN 14.3 mg/dL (7-18); CO2 23 mmol/L (21-32); GLUCOSE,RANDOM 101 mg/dL (74-106)
[2022-07-10 16:09] LABS: CREATININE 0.8 mg/dL (0.55-1.3)
[2022-07-10 16:11] LABS: BILIRUBIN,TOTAL 2.4 mg/dL (0.2-1); TOT PROT 9.1 g/dl (6.4-8.2)
[2022-07-10 16:12] LABS: ALK PHOS 420 U/L (45-117)
[2022-07-10 16:16] LABS: ANION GAP 5 MMOL/L (8-16); SGOT/AST 177 U/L (15-37); SGPT/ALT 62 U/L (13-61)
[2022-07-10 17:20] LABS: LIPASE 51 U/L (73-393)
[2022-07-10 18:54] LABS: BLOOD UREA NITROGEN 15.4 mg/dL (7-18); CALCIUM 8.8 mg/dL (8.5-10.1)
[2022-07-10 18:58] LABS: CREATININE 0.9 mg/dL (0.55-1.3)
[2022-07-10 19:17] LABS: MAGNESIUM 1.4 mg/dL (1.8-2.4)
[2022-07-10] MEDS ORDERED: POTASSIUM CHLORIDE TABS 20 MEQ TABLET.ER (FP) PO ONE ×4 (19:18→23:05)
[2022-07-10] MEDS ORDERED: morphine CARPU-JECT 4 MG/1 ML DISP.SYRIN IVPUSH ONE (19:52)
[2022-07-10] MEDS ORDERED: morphine SULFATE 4 MG/ML VIAL ONE (19:54)
[2022-07-10] MEDS ORDERED: MAGNESIUM SULF 50% (8.12 MEQ/2 ML-1 GM VIAL) IVPB ONE (21:09)
[2022-07-10] MEDS ORDERED: MAGNESIUM SULFATE IN WATER 2 GM/50 ML IVPB IVPB ONE (21:43)
[2022-07-11] MEDS ORDERED: POTASSIUM CHLORIDE TABS 20 MEQ TABLET.ER (FP) PO ONE (01:16)
[2022-07-11] MEDS: INSULIN SLIDING SCALE (NOVOLOG) 1 VIAL SQ SCH ×4 (06:23→21:57)
[2022-07-11 07:52] LABS: BASO % 0.8 % (0-2.0); EOS % 2.4 % (0-4.5); HEMOGLOBIN 10.9 GM/dL (11.7-16.9); LYMPH % 42.4 % (8-40); MCH 28.8 pg (25.7-33.7); MEAN CELL VOLUME 89.9 fl (80-96); MEAN PLT VOLUME 10.1 fl (7.5-11.1); MONO % 12.2 % (3.8-10.2); NEUT % 42.2 % (42.8-82.8); PLATELET COUNT 110 10^3/uL (134-434); RBC 3.78 M/mm3 (4.00-5.60); RDW 14.5 % (11.9-15.9); WHITE BLOOD COUNT 4.4 K/mm3 (4.0-10.0)
[2022-07-11 08:07] LABS: CALCIUM 8.4 mg/dL (8.5-10.1)
[2022-07-11 08:08] LABS: ALBUMIN 2.2 g/dl (3.4-5.0); BLOOD UREA NITROGEN 14.4 mg/dL (7-18); MAGNESIUM 1.7 mg/dL (1.8-2.4)
[2022-07-11 08:10] LABS: CREATININE 0.8 mg/dL (0.55-1.3); PHOSPHOROUS 3.1 mg/dL (2.5-4.9)
[2022-07-11 08:12] LABS: BILIRUBIN,TOTAL 1.8 mg/dL (0.2-1)
[2022-07-11 08:19] LABS: TOT PROT 6.7 g/dl (6.4-8.2)
[2022-07-11] MEDS ORDERED: ENOXAPARIN NA (PORCINE) 40 MG/0.4 ML DISP.SYRIN SQ SCH (10:00)
[2022-07-11] MEDS ORDERED: THIAMINE HCL 100 MG TABLET (FP) ONE (10:03)
[2022-07-11] MEDS ORDERED: PANTOPRAZOLE 40 MG TABLET PO ONE (10:03)
[2022-07-11] MEDS ORDERED: LISINOPRIL 5 MG TABLET ONE (10:04)
[2022-07-11] MEDS ORDERED: NICOTINE 7 MG/24 HOURS TOPICAL PATCH TD ONE (10:04)
[2022-07-11] MEDS ORDERED: amLODIPine BESYLATE 10 MG TABLET (FP) ONE (10:04)
[2022-07-11] MEDS ORDERED: ENOXAPARIN NA (PORCINE) 40 MG/0.4 ML DISP.SYRIN SQ ONE (10:04)
[2022-07-11] MEDS ORDERED: FOLIC ACID 1 MG TABLET (FP) ONE (10:04)
[2022-07-11] MEDS: LISINOPRIL 5 MG TABLET PO SCH (10:37)
[2022-07-11] MEDS: THIAMINE HCL 100 MG TABLET (FP) PO SCH (10:37)
[2022-07-11] MEDS: NICOTINE 7 MG/24 HOURS TOPICAL PATCH TD SCH (10:37)
[2022-07-11] MEDS: LORazepam 2 MG/ML SDV VIAL IVPUSH PRN ×2 (10:37→16:30)
[2022-07-11] MEDS: PANTOPRAZOLE 40 MG TABLET PO SCH (10:37)
[2022-07-11] MEDS: amLODIPine BESYLATE 10 MG TABLET (FP) PO SCH (10:37)
[2022-07-11] MEDS: FOLIC ACID 1 MG TABLET (FP) PO SCH (10:37)
[2022-07-11 11:01] LABS: CALCIUM 8.6 mg/dL (8.5-10.1)
[2022-07-11 11:02] LABS: ALBUMIN 2.4 g/dl (3.4-5.0); BLOOD UREA NITROGEN 13.8 mg/dL (7-18)
[2022-07-11 11:05] LABS: CREATININE 0.7 mg/dL (0.55-1.3)
[2022-07-11 11:07] LABS: TOT PROT 7.1 g/dl (6.4-8.2)
[2022-07-11 19:07] LABS: HIV INTERPRETATION NEGATIVE (NEGATIVE)
[2022-07-12] MEDS: INSULIN SLIDING SCALE (NOVOLOG) 1 VIAL SQ SCH ×4 (06:24→21:51)
[2022-07-12 09:13] LABS: BASO % 0.7 % (0-2.0); EOS % 1.6 % (0-4.5); HEMATOCRIT 34.6 % (35.4-49); HEMOGLOBIN 11.3 GM/dL (11.7-16.9); LYMPH % 43.4 % (8-40); MCHC 32.6 g/dl (32.0-35.9); MEAN CELL VOLUME 89.1 fl (80-96); MONO % 10.3 % (3.8-10.2); PLATELET COUNT 103 10^3/uL (134-434); RBC 3.88 M/mm3 (4.00-5.60); RDW 14.5 % (11.9-15.9); WHITE BLOOD COUNT 4.2 K/mm3 (4.0-10.0)
[2022-07-12 09:24] LABS: INR 1.36 (0.83-1.09); PROTHROMBIN TIME (PATIENT) 15.7 SEC (9.7-13.0)
[2022-07-12] MEDS: amLODIPine BESYLATE 10 MG TABLET (FP) PO SCH (09:26)
[2022-07-12] MEDS: PANTOPRAZOLE 40 MG TABLET PO SCH (09:26)
[2022-07-12] MEDS: FOLIC ACID 1 MG TABLET (FP) PO SCH (09:26)
[2022-07-12] MEDS: NICOTINE 7 MG/24 HOURS TOPICAL PATCH TD SCH (09:26)
[2022-07-12] MEDS: THIAMINE HCL 100 MG TABLET (FP) PO SCH (09:26)
[2022-07-12] MEDS: LISINOPRIL 5 MG TABLET PO SCH (09:26)
[2022-07-12 09:27] LABS: ACTIVATED PTT 31.2 SECONDS (25.2-36.5)
[2022-07-12 09:29] LABS: CALCIUM 8.3 mg/dL (8.5-10.1)
[2022-07-12 09:31] LABS: ALBUMIN 2.2 g/dl (3.4-5.0); BLOOD UREA NITROGEN 12.4 mg/dL (7-18)
[2022-07-12 09:33] LABS: CREATININE 0.6 mg/dL (0.55-1.3)
[2022-07-12 09:35] LABS: BILIRUBIN,TOTAL 1.7 mg/dL (0.2-1); TOT PROT 6.8 g/dl (6.4-8.2)
[2022-07-12] MEDS ORDERED: ACETAMINOPHEN 1000 MG/100 ML BAG IVPB PRN (09:48)
[2022-07-12] MEDS ORDERED: INSULIN (NOVOLOG) ASPART 100 UNITS/ML 10ML VIAL ONE (16:15)
[2022-07-12 16:17] LABS: BF WBC & OTHER NUCLEATED CELLS 138 /mm3
[2022-07-12 16:54] LABS: BODY FLUID MACROPHAGES 14 %; BODY FLUID MONOCYTE 39 %
[2022-07-12] MEDS: ACETAMINOPHEN 325 MG TABLET (FP) PO PRN (18:32)
[2022-07-12 23:57] VITALS: BMI 17.3
[2022-07-13 00:17] VITALS: RESP 18
[2022-07-13] MEDS: INSULIN SLIDING SCALE (NOVOLOG) 1 VIAL SQ SCH ×4 (06:00→21:54)
[2022-07-13 08:06] LABS: CARCINOEMBRYONIC ANTIGEN 4.6 ng/mL (0.0-4.7)
[2022-07-13 08:57] LABS: BASO % 0.4 % (0-2.0); EOS % 1.6 % (0-4.5); HEMOGLOBIN 11.8 GM/dL (11.7-16.9); LYMPH % 50.7 % (8-40); MCH 28.7 pg (25.7-33.7); MCHC 32.6 g/dl (32.0-35.9); MEAN CELL VOLUME 88.1 fl (80-96); MEAN PLT VOLUME 10.8 fl (7.5-11.1); MONO % 8.8 % (3.8-10.2); NEUT % 38.5 % (42.8-82.8); PLATELET COUNT 113 10^3/uL (134-434); RBC 4.09 M/mm3 (4.00-5.60); RDW 14.6 % (11.9-15.9)
[2022-07-13 09:06] LABS: INR 1.4 (0.83-1.09); PROTHROMBIN TIME (PATIENT) 16.2 SEC (9.7-13.0)
[2022-07-13 09:08] LABS: ACTIVATED PTT 31.2 SECONDS (25.2-36.5)
[2022-07-13 09:11] LABS: CALCIUM 8.5 mg/dL (8.5-10.1)
[2022-07-13 09:12] LABS: ALBUMIN 2.3 g/dl (3.4-5.0); BLOOD UREA NITROGEN 10.7 mg/dL (7-18); MAGNESIUM 1.5 mg/dL (1.8-2.4)
[2022-07-13 09:16] LABS: BILIRUBIN,TOTAL 1.8 mg/dL (0.2-1); CREATININE 0.7 mg/dL (0.55-1.3); PHOSPHOROUS 2.2 mg/dL (2.5-4.9)
[2022-07-13 09:18] LABS: TOT PROT 7.1 g/dl (6.4-8.2)
[2022-07-13] MEDS: NICOTINE 7 MG/24 HOURS TOPICAL PATCH TD SCH (10:43)
[2022-07-13] MEDS: THIAMINE HCL 100 MG TABLET (FP) PO SCH (10:44)
[2022-07-13] MEDS: PANTOPRAZOLE 40 MG TABLET PO SCH (10:44)
[2022-07-13] MEDS: FOLIC ACID 1 MG TABLET (FP) PO SCH (10:44)
[2022-07-13] MEDS: amLODIPine BESYLATE 10 MG TABLET (FP) PO SCH (10:44)
[2022-07-13] MEDS: LISINOPRIL 5 MG TABLET PO SCH (10:44)
[2022-07-13] MEDS ORDERED: MAGNESIUM SULF 50% (8.12 MEQ/2 ML-1 GM VIAL) IVPB ONE (15:32)
[2022-07-13] MEDS ORDERED: NAPH,MB-DB/K PH,MBDB POWDER PACKET PO ONE (15:32)
[2022-07-14] MEDS: INSULIN SLIDING SCALE (NOVOLOG) 1 VIAL SQ SCH ×3 (06:13→16:34)
[2022-07-14] MEDS ORDERED: DOCUSATE SODIUM 100 MG CAPSULE (FP) PO ONE (07:49)
[2022-07-14] MEDS ORDERED: POLYETHYLENE GLYCOL (HEALTHYLAX) 3350 17 GM PACKET PO SCH (08:00)
[2022-07-14] MEDS: LISINOPRIL 5 MG TABLET PO SCH (09:07)
[2022-07-14] MEDS: FOLIC ACID 1 MG TABLET (FP) PO SCH (09:08)
[2022-07-14] MEDS: PANTOPRAZOLE 40 MG TABLET PO SCH (09:08)
[2022-07-14] MEDS: NICOTINE 7 MG/24 HOURS TOPICAL PATCH TD SCH (09:08)
[2022-07-14] MEDS: amLODIPine BESYLATE 10 MG TABLET (FP) PO SCH (09:08)
[2022-07-14] MEDS: THIAMINE HCL 100 MG TABLET (FP) PO SCH (09:08)
[2022-07-14 10:53] LABS: BASO % 0.5 % (0-2.0); EOS % 1.5 % (0-4.5); HEMOGLOBIN 11.1 GM/dL (11.7-16.9); LYMPH % 40.6 % (8-40); MCH 29.2 pg (25.7-33.7); MCHC 32.6 g/dl (32.0-35.9); MEAN CELL VOLUME 89.6 fl (80-96); MEAN PLT VOLUME 10.1 fl (7.5-11.1); MONO % 8.4 % (3.8-10.2); PLATELET COUNT 105 10^3/uL (134-434); RDW 14.4 % (11.9-15.9); WHITE BLOOD COUNT 5.1 K/mm3 (4.0-10.0)
[2022-07-14 11:01] LABS: INR 1.45 (0.83-1.09); PROTHROMBIN TIME (PATIENT) 16.7 SEC (9.7-13.0)
[2022-07-14 11:04] LABS: ACTIVATED PTT 31.7 SECONDS (25.2-36.5)
[2022-07-14 11:12] LABS: CALCIUM 8.3 mg/dL (8.5-10.1)
[2022-07-14 11:13] LABS: ALBUMIN 2.2 g/dl (3.4-5.0); BLOOD UREA NITROGEN 11.4 mg/dL (7-18); MAGNESIUM 1.7 mg/dL (1.8-2.4)
[2022-07-14 11:16] LABS: CREATININE 0.6 mg/dL (0.55-1.3); PHOSPHOROUS 2.8 mg/dL (2.5-4.9)
[2022-07-14 11:17] LABS: TOT PROT 6.8 g/dl (6.4-8.2)
[2022-07-14] MEDS ORDERED: INSULIN (NOVOLOG) ASPART 100 UNITS/ML 10ML VIAL ONE (11:30)
[2022-07-14 16:08] LABS: BODY FLUID ALBUMIN 0.5 g/dL (Not Estab.)
[2022-07-14] MEDS ORDERED: NAPH,MB-DB/K PH,MBDB POWDER PACKET PO ONE (18:29)
[2022-07-14] MEDS: ACETAMINOPHEN 325 MG TABLET (FP) PO PRN (20:11)
[2022-07-14 21:27] VITALS: BP 119/78; PULSE 92; TEMP 98.5
[2022-07-15] MEDS ORDERED: MAGNESIUM SULF 50% (8.12 MEQ/2 ML-1 GM VIAL) IVPB ONE (03:27)
== END 2022-07-14 20:15 | disposition short-term general hospital (02) | DRG 435 ==
LOC: JER 13:02 → JERBED 19:26 → J6S 07-11 19:03
PROVIDERS: ADMIT Internal Medicine; ATTEND Internal Medicine
PROC: 0W9G3ZX Drainage of Peritoneal Cavity, Percutaneous Approach, Diagnostic (ICD-10-PCS; principal; 2022-07-12)
DX: C22.0 Liver cell carcinoma (principal); I81 Portal vein thrombosis; R18.8 Other ascites; B18.2 Chronic viral hepatitis C; F10.10 Alcohol abuse, uncomplicated; F17.210 Nicotine dependence, cigarettes, uncomplicated; F31.9 Bipolar disorder, unspecified; K40.20 Bilateral inguinal hernia, without obstruction or gangrene, not specified as recurrent; E11.42 Type 2 diabetes mellitus with diabetic polyneuropathy; I10 Essential (primary) hypertension; R00.0 Tachycardia, unspecified; K21.9 Gastro-esophageal reflux disease without esophagitis; E11.65 Type 2 diabetes mellitus with hyperglycemia; Z79.4 Long term (current) use of insulin
CPT/HCPCS: 36415; 74177-TC; 74182-TC; 76942-TC; 80048; 80053; 82042; 82105; 82150; 82378; 82465; 82945; 82962; 83036; 83605; 83615; 83690; 83735; 83986; 84100; 84157; 84478; 85025; 85610; 85730; 86301; 86704; 86803; 87070; 87075; 87102; 87116; 87205; 87206; 87210; 87340; 87389; 87517; 87522; 87536; 88108; 88305-TC; 88341-TC; 93005; 93010; 99291; A9579; C9803-CS; Q9967; U0003; U0005

== ENCOUNTER 2022-08-12 13:17 | Inpatient (IN) | payer OTHER ==
[2022-08-12 13:35] VITALS: BMI 17.3
[2022-08-12] MEDS ORDERED: ACETAMINOPHEN 1000 MG/100 ML BAG IVPB ONE (14:06)
[2022-08-12] MEDS ORDERED: FAMOTIDINE 20 MG/50 ML IVPB 20 MG/50 ML MG IVPB ONE ×2 (14:08→14:12)
[2022-08-12] MEDS ORDERED: MAG HYDROX/AL HYDROX/SIMETH 30 ML UNIT-DOSE CUP PO ONE (14:08)
[2022-08-12] MEDS ORDERED: MAG HYDROX/AL HYDROX/SIMETH 30 ML UNIT-DOSE CUP ONE (14:12)
[2022-08-12] MEDS ORDERED: ACETAMINOPHEN INJECTION 100 ML IVPB ONE (14:12)
[2022-08-12 15:15] LABS: BASO % 0.5 % (0-2.0); EOS % 0.4 % (0-4.5); HEMATOCRIT 35.6 % (35.4-49); HEMOGLOBIN 11.4 GM/dL (11.7-16.9); LYMPH % 28.8 % (8-40); MCH 28.9 pg (25.7-33.7); MCHC 31.9 g/dl (32.0-35.9); MEAN CELL VOLUME 90.6 fl (80-96); MEAN PLT VOLUME 9.4 fl (7.5-11.1); MONO % 9.9 % (3.8-10.2); NEUT % 60.4 % (42.8-82.8); PLATELET COUNT 107 10^3/uL (134-434); RBC 3.93 M/mm3 (4.00-5.60); RDW 15.8 % (11.9-15.9)
[2022-08-12 15:21] LABS: INR 1.37 (0.83-1.09); PROTHROMBIN TIME (PATIENT) 15.8 SEC (9.7-13.0)
[2022-08-12 15:23] LABS: ACTIVATED PTT 33.2 SECONDS (25.2-36.5)
[2022-08-12 15:55] LABS: CALCIUM 9.2 mg/dL (8.5-10.1)
[2022-08-12 15:56] LABS: ALBUMIN 2.7 g/dl (3.4-5.0); BLOOD UREA NITROGEN 17.2 mg/dL (7-18)
[2022-08-12 15:59] LABS: CREATININE 0.9 mg/dL (0.55-1.3)
[2022-08-12 16:00] LABS: BILIRUBIN,TOTAL 2.7 mg/dL (0.2-1)
[2022-08-12 16:42] LABS: LACTIC ACID 2.2 mmol/L (0.4-2.0)
[2022-08-12 19:10] LABS: PH,URINE 5.5 (5.0-8.0); URINE APPEARANCE CLEAR; URINE BILIRUBIN 1+ (NEGATIVE); URINE COLOR DK YELLOW; URINE GLUCOSE (UA) NEGATIVE (NEGATIVE); URINE KETONE TRACE (NEGATIVE); URINE LEUK ESTERASE NEGATIVE (NEGATIVE); URINE NITRITE NEGATIVE (NEGATIVE); URINE PROTEIN TRACE (NEGATIVE); URINE UROBILINOGEN 4.0 E.U/dl mg/dL (0.2-1.0)
[2022-08-12 19:43] LABS: LACTIC ACID 2.5 mmol/L (0.4-2.0)
[2022-08-12] MEDS ORDERED: SODIUM CHLORIDE 0.9% 500 ML INFUS.BAG IV ONE ×2 (20:04→21:26)
[2022-08-12] MEDS ORDERED: LIDOCAINE HCL 1%, 10 MG/ML (20ML VIAL) ONE (20:41)
[2022-08-12] MEDS ORDERED: morphine CARPU-JECT 4 MG/1 ML DISP.SYRIN IVPUSH ONE (21:32)
[2022-08-12] MEDS ORDERED: morphine SULFATE 4 MG/ML VIAL ONE (21:55)
[2022-08-12 22:24] LABS: BF WBC & OTHER NUCLEATED CELLS 133 /mm3
[2022-08-12 22:25] LABS: BODY FLUID MESOTHELIAL 2 %; BODY FLUID MONOCYTE 15 %
[2022-08-13] MEDS ORDERED: LORazepam 1 MG TABLET PO PRN (01:08)
[2022-08-13] MEDS: LORazepam 1 MG TABLET PO SCH ×2 (05:18→12:05)
[2022-08-13 07:35] LABS: BASO % 0.6 % (0-2.0); HEMATOCRIT 34.6 % (35.4-49); HEMOGLOBIN 11.2 GM/dL (11.7-16.9); LYMPH % 39.5 % (8-40); MCH 29.5 pg (25.7-33.7); MCHC 32.4 g/dl (32.0-35.9); MEAN CELL VOLUME 91.2 fl (80-96); MEAN PLT VOLUME 9.3 fl (7.5-11.1); MONO % 11.1 % (3.8-10.2); NEUT % 46.8 % (42.8-82.8); PLATELET COUNT 94 10^3/uL (134-434); RBC 3.79 M/mm3 (4.00-5.60); RDW 15.9 % (11.9-15.9); WHITE BLOOD COUNT 4.6 K/mm3 (4.0-10.0)
[2022-08-13 07:43] LABS: CALCIUM 8.4 mg/dL (8.5-10.1)
[2022-08-13 07:44] LABS: ALBUMIN 2.2 g/dl (3.4-5.0); BLOOD UREA NITROGEN 15.2 mg/dL (7-18); MAGNESIUM 1.7 mg/dL (1.8-2.4)
[2022-08-13 07:47] LABS: CREATININE 0.7 mg/dL (0.55-1.3); PHOSPHOROUS 2.5 mg/dL (2.5-4.9)
[2022-08-13 07:49] LABS: BILIRUBIN,TOTAL 2.2 mg/dL (0.2-1); TOT PROT 6.6 g/dl (6.4-8.2)
[2022-08-13] MEDS: INSULIN SLIDING SCALE (NOVOLOG) 1 VIAL SQ SCH ×2 (08:29→11:37)
[2022-08-13] MEDS ORDERED: ENOXAPARIN NA (PORCINE) 40 MG/0.4 ML DISP.SYRIN SQ ONE (08:36)
[2022-08-13] MEDS ORDERED: THIAMINE HCL 200 MG/2 ML VIAL ONE (08:36)
[2022-08-13] MEDS ORDERED: LISINOPRIL 5 MG TABLET ONE (08:36)
[2022-08-13] MEDS ORDERED: NICOTINE 7 MG/24 HOURS TOPICAL PATCH TD ONE (08:36)
[2022-08-13] MEDS ORDERED: FOLIC ACID 1 MG TABLET (FP) ONE (08:36)
[2022-08-13] MEDS ORDERED: NICOTINE 7 MG/24 HOURS TOPICAL PATCH TD SCH (10:00)
[2022-08-13] MEDS ORDERED: FOLIC ACID 1 MG TABLET (FP) PO SCH (10:00)
[2022-08-13] MEDS ORDERED: THIAMINE HCL 200 MG/2 ML VIAL IVPB SCH (10:00)
[2022-08-13] MEDS ORDERED: ENOXAPARIN NA (PORCINE) 40 MG/0.4 ML DISP.SYRIN SQ SCH (10:00)
[2022-08-13] MEDS ORDERED: LISINOPRIL 5 MG TABLET PO SCH (10:00)
[2022-08-13] MEDS ORDERED: LORazepam 1 MG TABLET ONE (11:53)
[2022-08-13 16:11] VITALS: BP 136/92; PULSE 84; RESP 18
[2022-08-13 16:53] VITALS: TEMP 98
[2022-08-13] MEDS ORDERED: ATORVASTATIN CA 40 MG TABLET (FP) PO SCH (22:00)
[2022-08-14] MEDS ORDERED: LORazepam 1 MG TABLET PO SCH (05:00)
[2022-08-15] MEDS ORDERED: LORazepam 0.5 MG TABLET PO PRN
[2022-08-15] MEDS ORDERED: LORazepam 0.5 MG TABLET PO SCH (05:00)
[2022-08-16 00:06] LABS: BODY FLUID ALBUMIN 0.3 g/dL (Not Estab.)
[2022-08-16] MEDS ORDERED: LORazepam 0.5 MG TABLET PO ONE (05:00)
== END 2022-08-13 16:30 | disposition short-term general hospital (02) | DRG 435 ==
LOC: JER 13:17 → JERBED 21:28
PROVIDERS: ADMIT Internal Medicine; ATTEND Internal Medicine
PROC: 0W9G3ZX Drainage of Peritoneal Cavity, Percutaneous Approach, Diagnostic (ICD-10-PCS; principal; 2022-08-12)
DX: C22.8 Malignant neoplasm of liver, primary, unspecified as to type (principal); I81 Portal vein thrombosis; R18.0 Malignant ascites; Z68.1 Body mass index [BMI] 19.9 or less, adult; E78.5 Hyperlipidemia, unspecified; E11.42 Type 2 diabetes mellitus with diabetic polyneuropathy; K40.20 Bilateral inguinal hernia, without obstruction or gangrene, not specified as recurrent; F31.9 Bipolar disorder, unspecified; F10.10 Alcohol abuse, uncomplicated; R94.5 Abnormal results of liver function studies; D69.6 Thrombocytopenia, unspecified; I10 Essential (primary) hypertension; F17.210 Nicotine dependence, cigarettes, uncomplicated; F14.10 Cocaine abuse, uncomplicated; K74.60 Unspecified cirrhosis of liver; R63.4 Abnormal weight loss
CPT/HCPCS: 0241U-QW; 36415; 71046-TC-FY; 74174-TC; 80053; 81003; 82042; 82150; 82945; 82962; 83036; 83605; 83615; 83690; 83735; 83986; 84100; 84478; 84484; 84560; 85025; 85610; 85730; 87070; 87075; 87086; 87205; 93005; 93010; 99285-25

== ENCOUNTER 2022-09-19 05:45 | Inpatient (IN) | payer OTHER ==
[2022-09-19] MEDS ORDERED: DEXTROSE 50%-WATER 25 GM/50 ML DISP.SYRIN ONE ×2 (05:56→10:30)
[2022-09-19] MEDS ORDERED: SODIUM CHLORIDE 1,000 ML IV STA (06:11)
[2022-09-19 07:28] LABS: VENOUS BASE EXCESS -5.4 mmol/L (-2-2); VENOUS O2 SATURATION 16.3 % (70-80); VENOUS PCO2 49.3 mmHg (38-52); VENOUS PH 7.262 (7.310-7.410)
[2022-09-19 07:30] LABS: BASO % 0.4 % (0-2.0); EOS % 0.6 % (0-4.5); HEMATOCRIT 31.9 % (35.4-49); HEMOGLOBIN 10.4 GM/dL (11.7-16.9); LYMPH % 8.5 % (8-40); MCH 29.3 pg (25.7-33.7); MCHC 32.5 g/dl (32.0-35.9); MEAN PLT VOLUME 8.7 fl (7.5-11.1); MONO % 8.2 % (3.8-10.2); NEUT % 82.3 % (42.8-82.8); PLATELET COUNT 165 10^3/uL (134-434); RBC 3.55 M/mm3 (4.00-5.60); RDW 15.9 % (11.9-15.9); WHITE BLOOD COUNT 12.7 K/mm3 (4.0-10.0)
[2022-09-19 07:40] LABS: ACTIVATED PTT 34.2 SECONDS (25.2-36.5); INR 2.61 (0.83-1.09); PROTHROMBIN TIME (PATIENT) 30.3 SEC (9.7-13.0)
[2022-09-19 08:12] LABS: LACTIC ACID 5.6 mmol/L (0.4-2.0)
[2022-09-19 08:41] LABS: CHLORIDE 96 mmol/L (98-107); SODIUM 131 mmol/L (136-145)
[2022-09-19 08:42] LABS: CALCIUM 8.1 mg/dL (8.5-10.1); GLUCOSE,RANDOM 133 mg/dL (74-106)
[2022-09-19 08:43] LABS: ALBUMIN 2.1 g/dl (3.4-5.0); ANION GAP 16 MMOL/L (8-16); BLOOD UREA NITROGEN 61.3 mg/dL (7-18); CO2 20 mmol/L (21-32)
[2022-09-19 08:46] LABS: CREATININE 3.5 mg/dL (0.55-1.3); SGPT/ALT 702 U/L (13-61)
[2022-09-19 08:47] LABS: TOT PROT 6.5 g/dl (6.4-8.2)
[2022-09-19 08:48] LABS: BILIRUBIN,TOTAL 5.4 mg/dL (0.2-1)
[2022-09-19 08:49] LABS: ALK PHOS 310 U/L (45-117)
[2022-09-19 09:04] LABS: SGOT/AST 2997 U/L (15-37)
[2022-09-19] MEDS ORDERED: CEFTRIAXONE 2,000 MG in DEXTROSE 5%-WATER - 50 ML IVPB ONE (09:39)
[2022-09-19] MEDS ORDERED: CEFTRIAXONE 2 GM/100 ML BAG IVPB ONE (10:23)
[2022-09-19] MEDS ORDERED: DEXTROSE 50%-WATER - 25 GM/50 ML VIAL IVPUSH ONE (10:27)
[2022-09-19] MEDS ORDERED: LACTULOSE 20 GM/30 ML UDC (FOR ORAL USE ONLY) PO ONE (10:39)
[2022-09-19] MEDS ORDERED: LACTULOSE 20 GM/30 ML UDC (FOR ORAL USE ONLY) ONE (11:59)
[2022-09-19 14:20] LABS: EPI CELLS 14 /uL (0-25.1); HYALINE CASTS 2 /uL (0-3.1); URINE APPEARANCE CLOUDY; URINE BACTERIA 40 /uL (0-1359); URINE BILIRUBIN 1+ (NEGATIVE); URINE COLOR DK YELLOW; URINE GLUCOSE (UA) TRACE (NEGATIVE); URINE KETONE NEGATIVE (NEGATIVE); URINE LEUK ESTERASE NEGATIVE (NEGATIVE); URINE NITRITE NEGATIVE (NEGATIVE); URINE PROTEIN 1+ (NEGATIVE); URINE WBC 23 /uL (0-25.8)
[2022-09-19 14:22] LABS: URINE RBC 263.5 /uL (0-23.9); YEAST NEGATIVE (NEGATIVE)
[2022-09-19 14:26] LABS: URINE UREA NITROGEN 344 mg/dL (350-1000)
[2022-09-19] MEDS ORDERED: LACTULOSE 20 GM/30 ML UDC (FOR ORAL USE ONLY) PO PRN (16:20)
[2022-09-19] MEDS ORDERED: LORazepam 2 MG/ML SDV VIAL IVPUSH PRN (16:20)
[2022-09-19 17:26] VITALS: BMI 17.0
[2022-09-19] MEDS: DEXTROSE 5%-NORMAL SALINE 1,000 ML IV SCH (18:08)
[2022-09-19 19:48] LABS: CALCIUM 7.6 mg/dL (8.5-10.1)
[2022-09-19 19:49] LABS: BLOOD UREA NITROGEN 63.8 mg/dL (7-18)
[2022-09-19 19:52] LABS: CREATININE 3.2 mg/dL (0.55-1.3)
[2022-09-19 20:14] LABS: LACTIC ACID 4.5 mmol/L (0.4-2.0)
[2022-09-20] MEDS: DEXTROSE 5%-NORMAL SALINE 1,000 ML IV SCH ×2 (09:36→17:40)
[2022-09-20] MEDS: LACTULOSE 20 GM/30 ML UDC (FOR ORAL USE ONLY) PO SCH ×3 (09:37→22:03)
[2022-09-20] MEDS ORDERED: CEFTRIAXONE 1 GM in DEXTROSE 5%-WATER - 50 ML IVPB SCH (10:00)
[2022-09-20] MEDS ORDERED: NICOTINE 7 MG/24 HOURS TOPICAL PATCH TD SCH (10:00)
[2022-09-20] MEDS ORDERED: THIAMINE HCL 100 MG TABLET (FP) PO SCH (10:00)
[2022-09-20] MEDS ORDERED: amLODIPine BESYLATE 5 MG TABLET (FP) PO SCH (10:00)
[2022-09-20] MEDS ORDERED: ALBUMIN HUMAN 25% 100 ML VIAL IV SCH (10:00)
[2022-09-20] MEDS ORDERED: FOLIC ACID 1 MG TABLET (FP) PO SCH (10:00)
[2022-09-20 11:20] LABS: BASO % 0.6 % (0-2.0); HEMATOCRIT 31.8 % (35.4-49); HEMOGLOBIN 10.1 GM/dL (11.7-16.9); LYMPH % 7.8 % (8-40); MCH 28.3 pg (25.7-33.7); MCHC 31.8 g/dl (32.0-35.9); MEAN PLT VOLUME 9.2 fl (7.5-11.1); MONO % 7.7 % (3.8-10.2); NEUT % 83.9 % (42.8-82.8); PLATELET COUNT 141 10^3/uL (134-434); RBC 3.58 M/mm3 (4.00-5.60); RDW 15.5 % (11.9-15.9); WHITE BLOOD COUNT 17.1 K/mm3 (4.0-10.0)
[2022-09-20 12:07] LABS: MAGNESIUM 2.1 mg/dL (1.8-2.4)
[2022-09-20 12:08] LABS: BLOOD UREA NITROGEN 65.1 mg/dL (7-18); CALCIUM 7.7 mg/dL (8.5-10.1)
[2022-09-20 12:09] LABS: ALBUMIN 1.8 g/dl (3.4-5.0); URIC ACID 10.2 mg/dL (2.6-7.2)
[2022-09-20 12:10] LABS: CREATININE 2.8 mg/dL (0.55-1.3)
[2022-09-20 12:11] LABS: PHOSPHOROUS 3.5 mg/dL (2.5-4.9)
[2022-09-20 12:13] LABS: BILIRUBIN,TOTAL 5.1 mg/dL (0.2-1)
[2022-09-20] MEDS ORDERED: morphine SULFATE 4 MG/ML VIAL IVPUSH SCH (12:47)
[2022-09-20] MEDS ORDERED: ACETAMINOPHEN 1000 MG/100 ML BAG IVPB ONE (13:41)
[2022-09-20 20:32] LABS: CALCIUM 7.8 mg/dL (8.5-10.1)
[2022-09-20 20:33] LABS: ALBUMIN 2.1 g/dl (3.4-5.0); BLOOD UREA NITROGEN 60.8 mg/dL (7-18)
[2022-09-20 20:36] LABS: CREATININE 2.8 mg/dL (0.55-1.3)
[2022-09-20 20:37] LABS: BILIRUBIN,TOTAL 5.3 mg/dL (0.2-1); TOT PROT 5.8 g/dl (6.4-8.2)
[2022-09-20 20:40] LABS: BASO % 0.4 % (0-2.0); EOS % 0.4 % (0-4.5); HEMATOCRIT 30.5 % (35.4-49); MCH 29.6 pg (25.7-33.7); MCHC 32.9 g/dl (32.0-35.9); MEAN PLT VOLUME 8.2 fl (7.5-11.1); MONO % 8.7 % (3.8-10.2); NEUT % 85.5 % (42.8-82.8); PLATELET COUNT 119 10^3/uL (134-434); RBC 3.39 M/mm3 (4.00-5.60); RDW 15.9 % (11.9-15.9); WHITE BLOOD COUNT 16.3 K/mm3 (4.0-10.0)
[2022-09-20 20:45] LABS: PROTHROMBIN TIME (PATIENT) 50.9 SEC (9.7-13.0)
[2022-09-20 21:07] LABS: INR 4.36 (0.83-1.09)
[2022-09-20 21:13] LABS: ANISOCYTOSIS 2+; MACROCYTOSIS 2+; TARGET CELLS 1+
[2022-09-20] MEDS ORDERED: ALBUMIN HUMAN 25% 12.5 GM/50 ML VIAL IV SCH (22:00)
[2022-09-20 22:12] VITALS: TEMP 98
[2022-09-21] MEDS ORDERED: CALCIUM CHLORIDE 1 GM/10 ML *DISP.SYRIN ONE ×2 (05:10→08:54)
[2022-09-21] MEDS ORDERED: NOREPINEPHRINE BITARTRATE 4 MG/4 ML ML IV ONE (05:11)
[2022-09-21] MEDS ORDERED: NOREPINEPHRINE BITARTRATE/D5W 8 MG/250 ML BAG IVPB SCH (05:15)
[2022-09-21 05:40] LABS: ARTERIAL BLD GAS O2 SATURATION 99.3 % (95-98); ARTERIAL BLOOD GAS BASE EXCESS -17.7 mmol/L (-2-2); ARTERIAL BLOOD GAS PO2 255.4 mmHg (80-100)
[2022-09-21 05:49] LABS: HEMATOCRIT 25.5 % (35.4-49); HEMOGLOBIN 8.2 GM/dL (11.7-16.9); MCH 29.4 pg (25.7-33.7); MCHC 32.2 g/dl (32.0-35.9); MEAN CELL VOLUME 91.5 fl (80-96); MEAN PLT VOLUME 8.5 fl (7.5-11.1); PLATELET COUNT 103 10^3/uL (134-434); RBC 2.79 M/mm3 (4.00-5.60); WHITE BLOOD COUNT 10.8 K/mm3 (4.0-10.0)
[2022-09-21 05:49] LABS: ARTERIAL BLOOD GAS pH 7.087 (7.350-7.450); VENT MODE V-A/C; VENT RATE 14
[2022-09-21] MEDS ORDERED: SODIUM BICARBONATE 8.4% 50 MEQ/50 ML DISP.SYRIN IVPUSH ONE ×2 (05:53)
[2022-09-21 06:00] LABS: CALCIUM 7.8 mg/dL (8.5-10.1)
[2022-09-21 06:01] LABS: BLOOD UREA NITROGEN 59.7 mg/dL (7-18); MAGNESIUM 2.1 mg/dL (1.8-2.4)
[2022-09-21 06:04] LABS: CREATININE 2.6 mg/dL (0.55-1.3); PHOSPHOROUS 6.7 mg/dL (2.5-4.9)
[2022-09-21 06:06] LABS: BILIRUBIN,TOTAL 4.2 mg/dL (0.2-1); TOT PROT 4.6 g/dl (6.4-8.2)
[2022-09-21 06:12] LABS: ALBUMIN 1.6 g/dl (3.4-5.0)
[2022-09-21 06:20] LABS: PROTHROMBIN TIME (PATIENT) 74.2 SEC (9.7-13.0)
[2022-09-21 06:23] LABS: ACTIVATED PTT 62.2 SECONDS (25.2-36.5)
[2022-09-21 06:35] LABS: INR 6.33 (0.83-1.09)
[2022-09-21] MEDS: LACTULOSE 20 GM/30 ML UDC (FOR ORAL USE ONLY) PO SCH (06:59)
[2022-09-21] MEDS ORDERED: AMIODARONE HCL 150 MG/3 ML VIAL ONE (08:56)
[2022-09-21] MEDS ORDERED: SODIUM BICARBONATE 8.4% - 50 ML ONE (08:59)
[2022-09-21] MEDS ORDERED: EPINEPHrine 1:10,000 (P-F SYR) 1 MG/10 ML DISP.SYRIN ONE (09:03)
[2022-09-21 09:39] LABS: ANISOCYTOSIS 2+; MACROCYTOSIS 2+; TARGET CELLS 2+; TEAR DROP CELLS 2+
[2022-09-21] MEDS ORDERED: MUPIROCIN 2% TOPICAL OINTMENT FOR DECOLONIZATION NS SCH (10:00)
[2022-09-21] MEDS ORDERED: PIPERACILLIN/TAZOB 2.25 GM 2.25 GM in DEXTROSE 5%-WATER - 50 ML IVPB SCH (10:30)
[2022-09-21 10:51] VITALS: BP 106/55; PULSE 65
[2022-09-21 11:12] VITALS: RESP 14
[2022-09-21] MEDS ORDERED: CHLORHEXIDINE GLUCONATE 4% CLEANSER FOR DECOLONIZATION TP SCH (22:00)
== END 2022-09-21 11:55 | disposition expired | DRG 435 ==
LOC: JER 05:45 → JERBED 10:21 → J8W 15:42 → JICU 09-21 03:15
PROVIDERS: ADMIT Internal Medicine; ATTEND Internal Medicine Pulmonary Disease
PROC: 4A133B1 Monitoring of Arterial Pressure, Peripheral, Percutaneous Approach (ICD-10-PCS; principal; 2022-09-21)
PROC: 4A133J1 Monitoring of Arterial Pulse, Peripheral, Percutaneous Approach (ICD-10-PCS; 2022-09-21)
PROC: 05HM33Z Insertion of Infusion Device into Right Internal Jugular Vein, Percutaneous Approach (ICD-10-PCS; 2022-09-21)
PROC: B543ZZA Ultrasonography of Right Jugular Veins, Guidance (ICD-10-PCS; 2022-09-21)
PROC: 5A12012 Performance of Cardiac Output, Single, Manual (ICD-10-PCS; 2022-09-21)
PROC: 0BH17EZ Insertion of Endotracheal Airway into Trachea, Via Natural or Artificial Opening (ICD-10-PCS; 2022-09-21)
PROC: 5A1935Z Respiratory Ventilation, Less than 24 Consecutive Hours (ICD-10-PCS; 2022-09-21)
DX: C22.8 Malignant neoplasm of liver, primary, unspecified as to type (principal); J96.00 Acute respiratory failure, unspecified whether with hypoxia or hypercapnia; E87.20 Acidosis, unspecified; R64 Cachexia; Z68.1 Body mass index [BMI] 19.9 or less, adult; N17.9 Acute kidney failure, unspecified; M62.82 Rhabdomyolysis; E11.649 Type 2 diabetes mellitus with hypoglycemia without coma; I10 Essential (primary) hypertension; F41.9 Anxiety disorder, unspecified; K76.82 Hepatic encephalopathy; K70.31 Alcoholic cirrhosis of liver with ascites; B19.20 Unspecified viral hepatitis C without hepatic coma; E87.5 Hyperkalemia; I46.9 Cardiac arrest, cause unspecified; K72.90 Hepatic failure, unspecified without coma; R41.82 Altered mental status, unspecified; E11.65 Type 2 diabetes mellitus with hyperglycemia; F17.200 Nicotine dependence, unspecified, uncomplicated; F19.10 Other psychoactive substance abuse, uncomplicated; K40.20 Bilateral inguinal hernia, without obstruction or gangrene, not specified as recurrent; K21.9 Gastro-esophageal reflux disease without esophagitis; F31.9 Bipolar disorder, unspecified; F41.8 Other specified anxiety disorders
CPT/HCPCS: 0241U-QW; 36415; 36600; 70450-TC; 71045-TC-FY; 72125-TC; 72170-TC-FY; 73610-TC-LT-FY; 73610-TC-RT-FY; 73630-TC-LT; 73630-TC-RT-FY; 74176-TC; 80048; 80053; 80307; 81003; 82140; 82550; 82553; 82570; 82803; 82962; 83605; 83735; 83970; 84100; 84156; 84300; 84484; 84540; 84550; 85025; 85610; 85730; 86850; 86900; 86901; 87040; 87077; 87086; 87186; 93005; 93010; 93970-TC; 94002; 99285-25; P9047